=== PATIENT | female | born 1945 | race Caucasian/White ===

== ENCOUNTER 2016-09-21 05:40 | Outpatient (CLI) | payer MEDICARE, OTHER ==
[~2016-09-21] VITALS: Ht 170.2 cm; Wt 95.3 kg
[~2016-09-21 05:40] MED LIST: AMLO5TAB2 PO; ASP81TEC PO; BNZ10T PO; ERGO400C PO; OMG1KC PO
[2016-09-21] MEDS ORDERED: NAPR220T66 PO (10:34)
[2016-09-21] MEDS ORDERED: ALEN70SO3 PO (10:34)
== END 2016-09-21 10:39 ==
LOC: PREOP 05:40
PROVIDERS: ATTEND Internal Medicine
DX: Z01.818 Encounter for other preprocedural examination (principal); Z12.11 Encounter for screening for malignant neoplasm of colon; Z86.010 Personal history of colon polyps

== ENCOUNTER 2016-09-23 07:10 | Day surgery (SDC) | payer MEDICARE, OTHER ==
[~2016-09-23] VITALS: Ht 170.2 cm; Wt 95.3 kg
[~2016-09-23 07:10] MED LIST changes: +ALEN70SO3 PO; +NAPR220T66 PO
--- OUTSIDE RECORDS SUMMARY | 2016-09-23 07:13 | XMS REPORT | Continuity of Care Document ---
Author Author [facility] Organization [facility] Address Unknown Phone Unavailable Care Team Providers Care Geriatric Social Worker Name Role Phone VIRGIL LONDONO MD PCP Insurance Providers Payer Name Policy Number Subscriber Name Relationship [employer] [id number] Philip Garrett 19 Self / Same As Patient Enter Insurance Name [id number] Philip Garrett 19 Self / Same As Patient Advance Directives Directive Response Recorded Date/Time Advance Directives No 09/21/16 10:31am Health Care Power of Reaming Press Operator No 09/21/16 10:31am Organ Donor Yes 09/21/16 10:31am Resuscitation Status Full Code 09/21/16 10:31am Problems No problem information available. Medications Current Home Medications Medication Dose Units Route Directions Days/Qty Instructions Start Date Aspirin 81 Mg 81 Mg Oral Daily 11/28/11 Fish Oil 1,000 Mg 1,000 Mg Oral Twice A Day 11/28/11 Benazepril Hcl 10 Mg 1 Each Oral Daily 11/29/11 Amlodipine Besylate (Norvasc 5 Mg) 5 Mg 5 Mg Oral Daily 11/29/11 Alendronate Sodium 70 Mg/75 Ml 70 Mg Oral Weekly 09/21/16 Naproxen Sodium 220 Mg 220 Mg Oral Daily 09/21/16 Past Home Medications Medication Directions Ordered Status Cholecalciferol 400 Unit Capsule, 400 Unit Oral Daily 11/28/11 Discontinued Social History Social History Problem Response Recorded Date/Time Alcohol Use Rarely Uses 09/21/2016 10:31am Recreational Drug Use No 09/21/2016 10:31am Recent Foreign Travel No 09/21/2016 10:30am Recent Infectious Disease Exposure No 09/21/2016 10:30am Sexually Transmitted Disease No 09/21/2016 10:31am HIV/AIDS No 09/21/2016 10:31am Smoking Status Former Smoker 09/21/2016 10:31am Recent Hopitalizations No 09/21/2016 10:31am Sexually Transmitted Disease No 09/21/2016 10:31am Query Response Start Date Stop Date Smoking Status Former Smoker Hospital Discharge Instructions No hospital discharge instructions. Plan of Care Discharge Date 09/21/16 10:39am Prescriptions See Medication Section Functional Status No functional status results. Allergies, Adverse Reactions, Alerts No known allergies. Immunizations No immunization records. Vital Signs Acute Vital Signs Vital Response Date/Time Height (Feet) 5 feet 09/21/2016 10:30am Height (Inches) 7.00 inches 09/21/2016 10:30am Height (Calculated Centimeters) 170.387032 cm 09/21/2016 10:30am Weight (Pounds) 210 pounds 09/21/2016 10:30am Weight (Ounces) 0.0 oz 09/21/2016 10:30am Weight (Calculated Grams) 38307.40 gm 09/21/2016 10:30am Weight (Calculated Kilograms) 95.926438 kilograms 09/21/2016 10:30am Calculated BMI 32.9 09/21/2016 10:30am Results No known relevant diagnostic tests, laboratory data and/or discharge summary. Procedures No known history of procedures. Encounters Encounter Location Arrival/Admit Date Discharge/Depart Date Attending Provider Departed Clinic [facility] 09/21/16 5:40am 09/21/16 10: 39am VIRGIL LONDONO MD
--- OUTSIDE RECORDS SUMMARY | 2016-09-23 07:13 | XMS REPORT | Continuity of Care Document ---
Author Author [facility] Organization [facility] Address Unknown Phone Unavailable Care Team Providers Care Recycling Center Operator Name Role Phone VIRGIL LONDONO MD PCP Insurance Providers Payer Name Policy Number Subscriber Name Relationship [employer] [id number] Philip Garrett 19 Self / Same As Patient Enter Insurance Name [id number] Philip Garrett 19 Self / Same As Patient Advance Directives Directive Response Recorded Date/Time Advance Directives No 09/21/16 10:31am Health Care Power of Goal Umpire No 09/21/16 10:31am Organ Donor Yes 09/21/16 [...] 7.00 inches 09/21/2016 10:30am Height (Calculated Centimeters) 170.216848 cm 09/21/2016 10:30am Weight (Pounds) 210 pounds 09/21/2016 10:30am Weight (Ounces) 0.0 oz 09/21/2016 10:30am Weight (Calculated Grams) 99446.40 gm 09/21/2016 10:30am Weight (Calculated Kilograms) 95.814015 kilograms 09/21/2016 10:30am Calculated BMI 32.9 09/21/2016 10:30am Results No known relevant diagnostic tests, laboratory data and/or discharge summary. Procedures No known history of procedures. Encounters Encounter Location Arrival/Admit Date Discharge/Depart Date Attending Provider Departed Clinic [facility] 09/21/16 5:40am 09/21/16 10: 39am VIRGIL LONDONO MD
[2016-09-23] MEDS ORDERED: 1/2 NS IV SOLUTION 1,000 ML IV STA (07:18)
[2016-09-23] MEDS ORDERED: FLUMAZENIL (ROMAZICON) 0.1 MG/ML 5 ML VIAL INJ PRN (07:30)
[2016-09-23] MEDS ORDERED: LIDOCAINE JELLY 2% (XYLOCAINE) 5 ML TUBE MM PRN (07:30)
[2016-09-23] MEDS ORDERED: NALOXONE 0.4 MG/ML 1 ML (NARCAN) VIAL IVP PRN (07:30)
[2016-09-23 07:37] VITALS: BP 134/72
--- NOTE | 2016-09-23 07:53 | Pre-Op Note & Conscious Sedat ---
Pre-Operative Progress Note H&P Reviewed The H&P was reviewed, patient examined and no changes noted. Date H&P Reviewed: Sep 23, 2016 Time H&P Reviewed: 07:53 Conscious Sedation Pre-Proced ASA Class: 2 Airway Mallampati Classification: ([place] appropriate class) I. II. III, IV Lungs Heart ASA score ASA 1: a normal healthy patient ASA 2: a patient with a mild systemic disease (mid diabetes, controlled hypertension, obesity ASA 3: a patient with a severe systemic disease that limits activity (angina , COPD, prior Myocardial infarction) ASA 4: a patient with an incapacitating disease that is a constant threat to life (CHF, renal failure) ASA 5: a moribund patient not expected to survive 24 hrs. (ruptured aneurysm) ASA 6: a declared brain patient whose organs are being harvested. For emergent operations, add the letter E after the classification Grade 2 Sedation Plan: Analgesia, Amnesia, Plan communicated to team members, Discussed options with patient/fam, Discussed risks with patient/fam Note The patient is an appropriate candidate to undergo the planned procedure, sedation, and anesthesia. The patient immediately re-assessed prior to indication. VIRGIL LONDONO MD Sep 23, 2016 07:53
--- NOTE | 2016-09-23 07:56 | History & Physical-Hospitalist ---
HPI History of Present Illness: HPI/Chief Complaint 8-year-old white female presenting for surveillance colonoscopy due to past history of adenomatous colonic polyps. Her last colonoscopy was 5 years ago. Past medical history is significant for CLL and hypertension she is on surveillance for CLL and is under good control for her hypertension. Family history for colon cancer she feels well and has no history of coronary artery disease. Date Seen 09/23/16 Attending Physician Virgil Londono MD PCP Virgil Londono MD Referring Physician Date of Admission Home Medications & Allergies Home Medications Reviewed patient Home Medication Reconciliation Form Allergies Coded Allergies: No Known Drug Allergies (Unverified , 09/21/16) Past Etyftzx-Nmxrni-Cqqxsc Hx Patient Social History Alcohol Use: Denies Use Recreational Drug Use: No Smoking Status: Former Smoker Type Used: Cigarettes Physical Abuse Screen: No Sexual Abuse: No Recent Foreign Travel: No Contact w/other who traveled: No Recent Hopitalizations: No Recent Infectious Disease Expo: No Immunizations Up To Date Tetanus Booster (TDap): Unknown Date of Pneumonia Vaccine: Sep 21, 2014 Date of Influenza Vaccine: May 16, 2016 Seasonal Allergies Seasonal Allergies: No Surgeries HX Surgeries: Yes Surgeries: Tubal Ligation Respiratory Hx Respiratory Disorders: No Cardiovascular Hx Cardiovascular Disorders: Yes Cardiac Disorders: Hypertension Neurological Hx Neurological Disorders: No Reproductive System Hx Reproductive Disorders: No Sexually Transmitted Disease: No HIV/AIDS: No Female Reproductive Disorders: Denies Genitourinary Hx Genitourinary Disorders: No Gastrointestinal Hx Gastrointestinal Disorders: No (OCCASSIONAL HEARTBURN) Gastrointestinal Disorders: Gastroesophageal Reflux, Polyps Musculoskeletal Hx Musculoskeletal Disorders: No Endocrine Hx Endocrine Disorders: No HEENT HX ENT Disorders: Yes (GLASSES, PARTIAL-UPPER AND LOWER) Loss of Vision: Denies Hearing Impairment: Denies Cancer Hx Cancer: No Psychosocial Hx Psychiatric Problems: No Integumentary HX Skin/Integumentary Disorder: No Blood Transfusions Hx Blood Disorders: No Review of Systems Constitutional: no symptoms reported Physical Exam Physical Exam Vital Signs Vital Sign - Last 12Hours 09/23/16 07:37 Temp 97.9 Pulse 81 Resp 18 B/P 134/72 Pulse Ox 97 O2 Delivery Room Air Capillary Refill : General Appearance: No Apparent Distress Respiratory: Chest Non Tender Lungs Clear Normal Breath Sounds No Accessory Muscle Use No Respiratory Distress Cardiovascular: Regular Rate, Rhythm No Edema No Gallop No JVD No Murmur Normal Peripheral Pulses Gastrointestinal: Normal Bowel Sounds No Organomegaly No Pulsatile Mass Non Tender Soft Assessment/Plan Admission Diagnosis 1. Stable CLL without evidence for anemia and thrombocytopenia and stable mild lymphocytosis continue to monitor. 2. Patient was set up for surveillance colonoscopy due to past history of adenomatous colonic polyps prep instructions with split dose Colyte were given and questions were answered. 3. Stable hypertension VIRGIL LONDONO MD Sep 23, 2016 07:56
[2016-09-23] MEDS ORDERED: fentaNYL INJECTION 100 MCG/2 ML AMP ONE ×2 (08:02→08:25)
[2016-09-23] MEDS ORDERED: MIDAZOLAM 2 MG/2 ML (VERSED) VIAL ONE ×2 (08:02→08:03)
[2016-09-23] MEDS ORDERED: LIDOCAINE JELLY 2% (XYLOCAINE) 5 ML TUBE ONE (08:02)
[2016-09-23] MEDS: fentaNYL INJECTION 100 MCG/2 ML AMP IVP PRN ×3 (08:05→08:25)
[2016-09-23] MEDS: MIDAZOLAM 2 MG/2 ML (VERSED) VIAL IVP PRN ×2 (08:08→08:26)
[2016-09-23 08:55] VITALS: BP 109/62
[2016-09-23 09:35] VITALS: BP 116/63
[2016-09-23 09:55] VITALS: BP 116/63
--- NOTE | 2016-09-25 08:55 | PROCEDURE REPORT ---
PROCEDURE PHYSICIAN: VIRGIL LONDONO DATE OF PROCEDURE: 09/23/2016 SURVEILLANCE COLONOSCOPY: Ms. Ball underwent colonoscopy due to a past history of adenomatous colon polyps. Last colonoscopy was 5 years ago. PROCEDURE: The patient was placed in the left lateral decubitus position. Prior to going colonoscopy, digital rectal evaluation was performed. Anal sphincter tone was normal and the perianal reflex was intact. No abnormalities were noted to digital inspection of the anal canal or distal rectal vault. The colonoscope was then inserted into the rectum and under direct visualization, advanced to cecum. The cecum was identified by identification of the ileocecal valve and cecal strap. Photographic documentation was obtained. Careful inspection was made as the colonoscope was withdrawn. FINDINGS: There was no evidence for internal or external hemorrhoids. There were a moderate number of small to medium size sigmoid and descending colonic diverticulum, several ascending colonic diverticulum were noted as well. Haustral hypertrophy was present with some patchy areas of erythema. No evidence for purulence was noted and the patient denied abdominal pain, diarrhea, constipation or bowel habit change. No evidence for neoplasia was noted on today's evaluation and no evidence for vascular malformation was noted. ASSESSMENT: Moderate diverticular disease predominantly noted in the sigmoid colon and to a lesser extent the descending colon as well as ascending colon was appreciated without evidence for acute diverticulitis. No evidence for neoplasia was identified. It is debatable as to whether or not future surveillance colonoscopy will be recommended considering moderate diverticular disease. We discussed signs and symptoms of diverticulitis with the patient should she develop significant abdominal pain with or without chills or fever and she should seek medical attention. Sincerely, Job ID: [id number] Dictated Date: 09/23/2016 13:26:26 Procedure Tech Date: 09/25/2016 08:50:51 / jane
== END 2016-09-23 09:55 | disposition home or self-care (01) ==
LOC: ENDO 07:10
PROVIDERS: ATTEND Internal Medicine
DX: Z12.11 Encounter for screening for malignant neoplasm of colon (principal); K57.30 Diverticulosis of large intestine without perforation or abscess without bleeding; Z86.010 Personal history of colon polyps; Z09 Encounter for follow-up examination after completed treatment for conditions other than malignant neoplasm

== ENCOUNTER → 2018-03-20 | Outpatient (CLI) | payer MEDICARE, OTHER | LOC: LAB 08:53 | PROVIDERS: ATTEND Internal Medicine | DX: D75.1 Secondary polycythemia (principal) | CPT/HCPCS: 36415; 81270 ==

== ENCOUNTER → 2018-08-15 | Outpatient (CLI) | payer MEDICARE, OTHER ==
--- NOTE | 2018-08-15 12:43 | Diagnostic Imaging Report ---
INDICATION: Routine screening. COMPARISON is made with prior mammogram from 03/28/2016 and 03/11/2015. EXAM: 2-D and 3-D bilateral screening mammography was performed with CAD. FINDINGS: Scattered fibroglandular densities are identified bilaterally. The parenchymal pattern is stable. Scattered nodular densities in both breasts appear stable. No new mass or malignant-appearing microcalcifications are seen. The axillae are unremarkable. IMPRESSION: BI-RADS category 2. No mammographic features suspicious for malignancy are identified. ACR BI-RADS Category 2: Benign findings. Result letter will be mailed to the patient. Note: At least 10% of breast cancer is not imaged by mammography. Dictated by: Dictated on workstation # [id number]
== END ==
LOC: RAD 10:25
PROVIDERS: ATTEND Internal Medicine
DX: Z12.31 Encounter for screening mammogram for malignant neoplasm of breast (principal)
CPT/HCPCS: 77067

== ENCOUNTER 2020-07-23 10:07 | Inpatient (IN) | payer MEDICARE, OTHER ==
[2020-07-23] VITALS (7 sets, daily range): BP systolic 126–152; BP diastolic 65–92
[~2020-07-23] VITALS: Ht 170.2 cm; Wt 79.4 kg
[2020-07-23] MEDS ORDERED: LACTATED RINGERS 1,000 ML IV ONE (10:30)
--- NOTE | 2020-07-23 10:33 | ED Respiratory ---
General Chief Complaint: Respiratory Problems Stated Complaint: SOB,CP Source: patient Exam Limitations: no limitations History of Present Illness Date Seen by Provider: Jul 23, 2020 Time Seen by Provider: 10:13 Initial Comments Patient presents ER by private conveyance from home with chief complaint of shortness of air that she woke up with this morning. She says that she did any minor exertion even trying to get a shower when caused tightness across her [address] She does not have a history of coronary disease. She does smoke and quit smoking about 2 weeks ago. She has hypertension hyperlipidemia but no diabetes. She takes her medications routinely but did not take her aspirin yet this morning. She denies a known history of lung disease. She says for the past couple weeks has been dealing with gallbladder disease but has been able to manage it by just changing her diet. Historically she only has tubal ligation. She is not having any nausea or abdominal pain, bloating diarrhea or constipation. No fevers or chills. Everybody in the household has had runny nose, cold-like symptoms but they have all tested negative for COVID-19. She has not been tested for Covid or influenza. Allergies and Home Medications Allergies Coded Allergies: No Known Drug Allergies (Unverified , 09/21/16) Home Medications Alendronate Sodium 70 Mg/75 Ml Solution, 70 MG PO WEEKLY, (Reported) Amlodipine Besylate 5 Mg Tablet, 5 MG PO DAILY, (Reported) Aspirin 81 Mg Tabec, 81 MG PO DAILY, (Reported) Benazepril Hcl 10 Mg Tablet, 1 EACH PO DAILY, (Reported) Naproxen Sodium 220 Mg Tablet, 220 MG PO DAILY, (Reported) [place] 3 Polyunsat Fatty Acids 1,000 Mg Cap, 1,000 MG PO BID, (Reported) Patient Home Medication List Home Medication List Reviewed: Yes Review of Systems Review of Systems Constitutional: No chills, No fever EENTM: No ear discharge, No ear pain Respiratory: cough, short of breath Cardiovascular: chest pain; No Hx of Intervention, No palpitations Gastrointestinal: No abdominal pain, No constipation, No diarrhea, No nausea, No vomiting Genitourinary: No discharge, No dysuria Musculoskeletal: No back pain, No joint pain All Other Systems Reviewed Negative Unless Noted: Yes Past Gcykini-Ifkszf-Tbpnne Hx Patient Social History Alcohol Use: Denies Use Recreational Drug Use: No Smoking Status: Current Everyday Smoker Type Used: Cigarettes Recent Hopitalizations: No Immunizations Up To Date Tetanus Booster (TDap): Unknown Date of Pneumonia Vaccine: Sep 21, 2014 Date of Influenza Vaccine: May 16, 2016 Seasonal Allergies Seasonal Allergies: No Past Medical History Tubal Ligation Currently Using CPAP: No Currently Using BIPAP: No Hypertension Reproductive Disorders: No Female Reproductive Disorders: Denies Sexually Transmitted Disease: No HIV/AIDS: No Gastroesophageal Reflux, Polyps Loss of Vision: Denies Hearing Impairment: Denies Physical Exam Vital Signs - First Documented 07/23/20 10:07 Temp 35.9 Pulse 134 Resp 20 B/P (MAP) 173/90 (117) Pulse Ox 97 O2 Delivery Room Air Capillary Refill : Height: 5'7.00" Weight: 210lbs. 0.0oz. [id number]; 32.9 BMI Method: General Appearance: WD/WN, moderate distress Eyes: Bilateral Eye Normal Inspection, Bilateral Eye PERRL, Bilateral Eye EOMI HEENT: PERRL/EOMI, normal ENT inspection, TMs normal, pharynx normal Neck: full range of motion, normal inspection Respiratory: lungs clear, normal breath sounds, no respiratory distress, no accessory muscle use Cardiovascular: normal peripheral pulses, regular rate, rhythm Gastrointestinal: normal bowel sounds, non tender, soft Extremities: normal range of motion, normal inspection Neurologic/Psychiatric: no motor/sensory deficits, alert, normal mood/affect, oriented x 3 Skin: normal color, warm/dry Focused Exam Sepsis Stage: Sepsis Possible Source: Pulmonary Lactate Level 07/23/20 12:55: Time of Focused Exam: 13:02 Respiratory: Lungs Clear, Normal Breath Sounds, No Accessory Muscle Use, Respiratory Distress (Mild to moderate with exertional hypoxia) Cardiovascular: No Edema, Normal Peripheral Pulses, Tachycardia Capillary Refill: Less Than 3 Seconds Peripheral Pulses: 2+ Radial Pulses (R), 2+ Radial Pulses (L) Skin: normal color, warm/dry Lactic Acid Level Laboratory Tests Test 07/23/20 12:55 Within 3hrs of presentation: Admin fluids (Fluids were titrated at first due to suspicion for viral pneumonia.), Admin ABX (Antibiotics were initially held because of suspicion for viral pneumonia.), Blood cultures prior to ABX's, Focus exam, Lactate level Progress/Results/Core Measures Suspected Sepsis SIRS Temperature: Pulse: Respiratory Rate: Laboratory Tests 07/23/20 10:15: White Blood Count 9.6 Blood Pressure / Mean: 07/23/20 12:55: Laboratory Tests 07/23/20 10:15: Creatinine 1.22, INR Comment 1.1, Platelet Count 99L, Total Bilirubin 2.1H Results/Orders Lab Results Laboratory Tests Test 07/23/20 10:15 07/23/20 10:22 07/23/20 11:12 07/23/20 11:55 Range/Units White Blood Count 9.6 4.3-11.0 10^3/uL Red Blood Count 4.49 3.80-5.11 10^6/uL Hemoglobin 14.4 11.5-16.0 g/dL Hematocrit 42 35-52 % Mean Corpuscular Volume 93 80-99 fL Mean Corpuscular Hemoglobin 32 25-34 pg Mean Corpuscular Hemoglobin Concent 34 32-36 g/dL Red Cell Distribution Width 12.7 10.0-14.5 % Platelet Count 99 L 130-400 10^3/uL Mean Platelet Volume 9.0-12.2 fL Immature Granulocyte % (Auto) 2 % Neutrophils (%) (Auto) 61 42-75 % Lymphocytes (%) (Auto) 31 12-44 % Monocytes (%) (Auto) 5 0-12 % Eosinophils (%) (Auto) 1 0-10 % Basophils (%) (Auto) 1 0-10 % Neutrophils # (Auto) 5.9 1.8-7.8 10^3/uL Lymphocytes # (Auto) 2.9 1.0-4.0 10^3/uL Monocytes # (Auto) 0.5 0.0-1.0 10^3/uL Eosinophils # (Auto) 0.1 0.0-0.3 10^3/uL Basophils # (Auto) 0.1 0.0-0.1 10^3/uL Immature Granulocyte # (Auto) 0.2 H 0.0-0.1 10^3/uL Prothrombin Time 14.4 12.2-14.7 SEC INR Comment 1.1 0.8-1.4 Activated Partial Thromboplast Time 30 24-35 SEC D-Dimer 7.32 H 0.00-0.49 UG/ML Sodium Level 133 L 135-145 MMOL/L Potassium Level 4.4 3.6-5.0 MMOL/L Chloride Level 100 98-107 MMOL/L Carbon Dioxide Level 14 L 21-32 MMOL/L Anion Gap 19 H 5-14 MMOL/L Blood Urea Nitrogen 31 H 7-18 MG/DL Creatinine 1.22 0.60-1.30 MG/DL Estimat Glomerular Filtration Rate 43 BUN/Creatinine Ratio 25 Glucose Level 129 H 70-105 MG/DL Calcium Level 10.3 H 8.5-10.1 MG/DL Corrected Calcium 8.5-10.1 MG/DL Total Bilirubin 2.1 H 0.1-1.0 MG/DL Aspartate Amino Transf (AST/SGOT) 37 H 5-34 U/L Alanine Aminotransferase (ALT/SGPT) 19 0-55 U/L Alkaline Phosphatase 66 40-136 U/L Troponin I < 0.028 <0.028 NG/ML C-Reactive Protein High Sensitivity 1.81 H 0.00-0.50 MG/DL B-Type Natriuretic Peptide 130.2 H <100.0 PG/ML Total Protein 8.1 6.4-8.2 GM/DL Albumin 4.6 H 3.2-4.5 GM/DL Lipase 34 8-78 U/L Procalcitonin 0.09 <0.10 NG/ML Coronavirus 2019 ([place]) Negative Negative Blood Gas Puncture Site RIGHT RADIAL Blood Gas Patient Temperature 96.6 Arterial Blood pH 7.34 *L 7.37-7.43 Arterial Blood Partial Pressure CO2 30 L 35-45 MMHG Arterial Blood Partial Pressure O2 71 L 79-93 MMHG Arterial Blood HCO3 16 *L 23-27 MMOL/L Arterial Blood Total CO2 16.8 L 21.0-31.0 MMOL/L Arterial Blood Oxygen Saturation 94 94-100 % Arterial Blood Base Excess -9.0 L -2.5-2.5 MMOL/L Jose Test POSITIVE Blood Gas Ventilator Setting NO Blood Gas Inspired Oxygen N/A Urine Color YELLOW Urine Clarity SL CLOUDY Urine pH 5.5 5-9 Urine Specific Bennet 1.020 1.016-1.022 Urine Protein NEGATIVE NEGATIVE Urine Glucose (UA) NEGATIVE NEGATIVE Urine Ketones NEGATIVE NEGATIVE Urine Nitrite NEGATIVE NEGATIVE Urine Bilirubin NEGATIVE NEGATIVE Urine Urobilinogen 0.2 < = 1.0 MG/DL Urine Leukocyte Esterase TRACE H NEGATIVE Urine RBC (Auto) NEGATIVE NEGATIVE Urine RBC NONE /HPF Urine WBC 10-25 H /HPF Urine Squamous Epithelial Cells 10-25 H /HPF Urine Crystals NONE /LPF Urine Bacteria MODERATE H /HPF Urine Casts PRESENT /LPF Urine Hyaline Casts 5-10 H /LPF Urine Mucus NEGATIVE /LPF Urine Culture Indicated YES Test 07/23/20 12:55 Range/Units Micro Results Microbiology 07/23/20 Influenza Types A,B Antigen ([facility]) - Final, Complete My Orders Orders - FIDEL MORALES Cbc With Automated Diff (07/23/20 10:28) Comprehensive Metabolic Panel (07/23/20 10:28) Sputum Culture (07/23/20 10:28) Urinalysis (07/23/20 10:28) Urine Culture (07/23/20 10:28) Protime With Inr (07/23/20 10:28) Partial Thromboplastin Time (07/23/20 10:28) Chest 1 View, Ap/Pa Only (07/23/20 10:28) Ed Iv/Invasive Line Start (07/23/20 10:28) Ed Iv/Invasive Line Start (07/23/20 10:28) Ekg Tracing (07/23/20 10:28) Troponin I (07/23/20 10:28) Vital Signs Adult Sepsis Patie Q15M (07/23/20 10:28) O2 (07/23/20 10:28) Remove Rings In Anticipation O (07/23/20 10:28) Influenza A And B Antigens (07/23/20 10:28) Lactated Ringers (Lr 1000 Ml Iv Solution (07/23/20 10:30) Covid 19 Inhouse Test (07/23/20 10:28) Lipase (07/23/20 10:28) Fibrin Degradation Products (07/23/20 10:28) Procalcitonin (Pct) (07/23/20 10:28) Hs C Reactive Protein (07/23/20 10:28) Aspirin Chewable Tablet (Baby Aspirin Ch (07/23/20 10:45) Arterial Blood Gas (07/23/20 10:34) Coronavirus Sars-Cov-2 So 2019 (07/23/20 11:01) Ct Angio Chest W (07/23/20 11:12) Ed Iv/Invasive Line Start (07/23/20 11:15) Ns Iv 500 Ml (Sodium Chloride 0.9%) (07/23/20 11:15) BNP (07/23/20 11:15) Iohexol Injection (Omnipaque 350 Mg/Ml 1 (07/23/20 11:15) Received Contrast (Hold Metformin- Contr (07/23/20 11:15) Sodium Chloride Flush (Catheter Flush Sy (07/23/20 11:15) Ns (Ivpb) (Sodium Chloride 0.9% Ivpb Bag (07/23/20 11:15) Blood Culture (07/23/20 12:50) Lactic Acid Analyzer (07/23/20 12:50) Ceftriaxone For Iv Use (Rocephin For I (07/23/20 13:00) Azithromycin Injection (Zithromax Inject (07/23/20 13:00) Legionella Pneum Antigen Urine (07/23/20 12:54) Mycoplasma Antibodies (07/23/20 12:54) Medications Given in ED Current Medications Medications Dose Ordered Sig/Alfred Route Start Time Stop Time Status Last Admin Dose Admin Aspirin 324 mg ONCE ONCE PO 07/23/20 10:45 07/23/20 10:46 DC 07/23/20 10:44 324 MG Azithromycin 500 mg/Sodium Chloride 250 ml @ 250 mls/hr ONCE ONCE IV 07/23/20 13:00 07/23/20 13:59 07/23/20 13:10 250 MLS/HR Ceftriaxone Sodium 1000 mg/ Sterile Water 10 ml @ 200 mls/hr ONCE ONCE IV 07/23/20 13:00 07/23/20 13:02 DC 07/23/20 13:08 200 MLS/HR Iohexol 100 ml ONCE ONCE IV 07/23/20 11:15 07/23/20 11:16 DC 07/23/20 11:56 72 ML Lactated Ringer's 1,000 ml @ 0 mls/hr Q0M ONCE IV 07/23/20 10:30 07/23/20 10:32 DC 07/23/20 10:44 1,000 MLS/HR Sodium Chloride 10 ml NEEDED PRN IV 07/23/20 11:15 07/23/20 11:57 10 ML Sodium Chloride 100 ml ONCE ONCE IV 07/23/20 11:15 07/23/20 11:16 DC 07/23/20 11:57 80 ML Sodium Chloride 500 ml @ 0 mls/hr Q0M ONCE IV 07/23/20 11:15 07/23/20 11:16 DC 07/23/20 13:07 500 MLS/HR Vital Signs/I&O 07/23/20 10:07 Temp 35.9 Pulse 134 Resp 20 B/P (MAP) 173/90 (117) Pulse Ox 97 O2 Delivery Room Air Capillary Refill : Progress Note #1: Time: 11:53 Progress Note Suspected viral pneumonias at first so 1500 cc of fluids and holding off on antibiotics. D-dimer significantly elevated so we get a CT angiogram. Chest x- ray is unrevealing of any pneumonia. White count is normal. CRP and procalcitonin are unremarkable. Progress Note #2: Time: 12:[address] angio was still unrevealing. Were going to cover her with Rocephin and azithromycin for atypicals. Going to send out for Legionella and mycoplasma. ABG reveals mild hypoxia so will put her on oxygen and jose martin for a floor bed. Communicated with family. ECG Initial ECG Impression Date: Jul 23, 2020 Initial ECG Impression Time: 10:11 Initial ECG Rate: 111 Initial ECG Rhythm: S.Tach Initial ECG Intervals: Normal Initial ECG Impression: Normal Initial ECG Comparisson: No Previous ECG Available Comment Sinus tach without st elevation Diagnostic Imaging Diagonstic Imaging: Xray Plain Films/CT/US/NM/MRI: chest Comments NAME: PHILIP GARRETT [facility] REC#: [id number] PT STATUS: REG ER : 1945 PHYSICIAN: FIDEL MORALES MD ADMIT DATE: 07/23/20/ER Signed Date of Exam:07/23/20 CHEST 1 VIEW, AP/PA ONLY INDICATION: Shortness of breath and chest tightness. TECHNIQUE: Frontal chest obtained at 11:01 a.m. and compared to 03/28/2016. FINDINGS: Heart is borderline in size. There is mild central vascular prominence. There are chronic-appearing increased interstitial markings. There is no overt consolidation or pneumothorax or pleural fluid. IMPRESSION: Borderline heart size with central vascular prominence and chronic increased interstitial markings. No overt consolidation or pleural fluid. Dictated by: Dictated on workstation # [id number] Dict: 07/23/20 1102 Trans: 07/23/20 1131 [id number] Interpreted by: WANDA CLAUDIO MD Electronically signed by: WANDA CLAUDIO MD 07/23/20 1131 Reviewed: Reviewed by Me Diagonstic Imaging: CT Plain Films/CT/US/NM/MRI: chest Comments NAME: PHILIP GARRETT [facility] REC#: [id number] PT STATUS: REG ER : 1945 PHYSICIAN: FIDEL MORALES MD ADMIT DATE: 07/23/20/ER Draft Date of Exam:07/23/20 CT ANGIO CHEST W PROCEDURE: CT angiography of the chest with contrast. TECHNIQUE: Multiple contiguous axial images were obtained through the chest after uneventful bolus administration of intravenous contrast. 3D reconstructed CTA MIP acquisitions were also performed. Auto Exposure Controls were utilized during the CT exam to meet ALARA standards for radiation dose reduction. INDICATION: Fall, syncope FINDINGS: No identifiable intraluminal arterial filling defect is seen. We note limited sensitivity on the basis of motion artifact particular challenging the distal basilar pulmonary arterial branches. There is some prominence of the pulmonary venous structures as well as some mild smooth septal thickening and element of hypervolemia or mild failure is suspected. No focal consolidation or pneumonia. No pneumothorax. No adenopathy. No soft tissue density lung mass. No effusion. The aorta is patent and nonaneurysmal. There is no pericardial collection. IMPRESSION: No demonstrated PE or acute aortic disease. Prominence of the venous structures as well as likely mild interstitial edema without pleural fluid. Dictated on workstation # [id number] Dict: 07/23/20 1212 Trans: 07/23/20 1238 [id number] Interpreted by: THUY NUÑEZ Electronically signed by: Reviewed: Reviewed by Me Departure Communication (Admissions) Time/Spoke to Admitting Phy: 13:00 Discussed the case with Dr. Nicole and she agrees take the patient to the floor on telemetry. Time/Spoke to Consulting Phy: 13:00 Discussed the case with Dr. Gaspar and he agrees to consult on the case. Impression Primary Impression: Pneumonia Qualified Codes: J18.9 - Pneumonia, unspecified organism Additional Impressions: Chest pain Qualified Codes: R07.1 - Chest pain on breathing Acute respiratory failure with hypoxia Sepsis Qualified Codes: A41.9 - Sepsis, unspecified organism Person under investigation for severe acute respiratory syndrome coronavirus 2 (SARS-CoV-2) infection Disposition: ADMITTED INPATIENT Condition: Stable Admissions Decision to Admit Reason: Admit from ER (General) Decision to Admit/Date: Jul 23, 2020 Time/Decision to Admit Time: 12:00 Departure-Patient Inst. Referrals: VIRGIL LONDONO MD (PCP/Family) Primary Care Physician FIDEL MORALES Jul 23, 2020 10:33
[2020-07-23 10:37] LABS: MEAN CORPUSCULAR HEMOGLOBIN 32 pg (25-34)
[2020-07-23 10:39] LABS: BASOPHILS # (AUTO) 0.1 10^3/uL (0.0-0.1); BASOPHILS % (AUTO) 1 % (0-10); EOSINOPHILS # (AUTO) 0.1 10^3/uL (0.0-0.3); EOSINOPHILS % (AUTO) 1 % (0-10); HEMATOCRIT 42 % (35-52); HEMOGLOBIN 14.4 g/dL (11.5-16.0); LYMPHOCYTES # (AUTO) 2.9 10^3/uL (1.0-4.0); LYMPHOCYTES % (AUTO) 31 % (12-44); MEAN CORPUSCULAR HGB CONC 34 g/dL (32-36); MEAN CORPUSCULAR VOLUME 93 fL (80-99); MONOCYTES # (AUTO) 0.5 10^3/uL (0.0-1.0); MONOCYTES % (AUTO) 5 % (0-12); NEUTROPHILS # (AUTO) 5.9 10^3/uL (1.8-7.8); NEUTROPHILS % (AUTO) 61 % (42-75); PLATELET COUNT 99 10^3/uL (130-400); WHITE BLOOD COUNT 9.6 10^3/uL (4.3-11.0)
[2020-07-23 10:41] LABS: ABG OXYGEN SATURATION 94 % (94-100); ABG PCO2 30 MMHG (35-45); ABG PO2 71 MMHG (79-93); ABG TCO2 16.8 MMOL/L (21.0-31.0)
[2020-07-23 10:42] LABS: ABG PH 7.34 (7.37-7.43)
[2020-07-23 10:43] LABS: ALLENS TEST POSITIVE; PATIENT TEMP 96.6; VENTILATOR NO
[2020-07-23] MEDS ORDERED: ASPIRIN 81 MG CHEW (CHILDREN'S ASA) PO ONE (10:45)
[2020-07-23 10:46] LABS: ALBUMIN 4.6 GM/DL (3.2-4.5); CHLORIDE 100 MMOL/L (98-107); POTASSIUM 4.4 MMOL/L (3.6-5.0); SODIUM 133 MMOL/L (135-145)
[2020-07-23 10:47] LABS: CALCIUM 10.3 MG/DL (8.5-10.1)
[2020-07-23 10:48] LABS: GLUCOSE 129 MG/DL (70-105); TOTAL PROTEIN 8.1 GM/DL (6.4-8.2)
[2020-07-23 10:49] LABS: CARBON DIOXIDE 14 MMOL/L (21-32)
[2020-07-23 10:50] LABS: BILIRUBIN,TOTAL 2.1 MG/DL (0.1-1.0)
[2020-07-23 10:52] LABS: ALKALINE PHOSPHATASE 66 U/L (40-136); CREATININE SERUM 1.22 MG/DL (0.60-1.30); GFR ESTIMATED 43
[2020-07-23 10:53] LABS: BUN/CREATININE RATIO 25
[2020-07-23 10:55] LABS: ALANINE AMINOTRANSFERASE 19 U/L (0-55); FIBRIN DEGRADATION PRODUCTS 7.32 UG/ML (0.00-0.49); INR 1.1 (0.8-1.4); LIPASE 34 U/L (8-78); PROTHROMBIN TIME PATIENT 14.4 SEC (12.2-14.7)
--- NOTE | 2020-07-23 11:08 | Diagnostic Imaging Report ---
INDICATION: Shortness of breath and chest tightness. TECHNIQUE: Frontal chest obtained at 11:01 a.m. and compared to 03/28/2016. FINDINGS: Heart is borderline in size. There is mild central vascular prominence. There are chronic-appearing increased interstitial markings. There is no overt consolidation or pneumothorax or pleural fluid. IMPRESSION: Borderline heart size with central vascular prominence and chronic increased interstitial markings. No overt consolidation or pleural fluid. Dictated by: Dictated on workstation # [id number]
[2020-07-23] MEDS ORDERED: NS IV 500 ML 500 ML IV ONE (11:15)
[2020-07-23] MEDS ORDERED: HOLD METFORMIN - RECEIVED CONTRAST 20 ML VIAL IV SCH (11:15)
[2020-07-23] MEDS ORDERED: IOHEXOL 350 MG/ML 100 ML (OMNIPAQUE 350) VIAL IV ONE (11:15)
[2020-07-23] MEDS ORDERED: CATHETER FLUSH 10 ML SYR IV PRN ×2 (11:15→14:45)
[2020-07-23] MEDS ORDERED: NS 100 ML (IVPB) BAG IV ONE (11:15)
[2020-07-23 12:04] LABS: BILIRUBIN,URINE NEGATIVE (NEGATIVE); CLARITY,URINE SL CLOUDY; COLOR,URINE YELLOW; GLUCOSE, URINE (UA) NEGATIVE (NEGATIVE); KETONES,URINE NEGATIVE (NEGATIVE); LEUKOCYTE ESTERASE ,URINE TRACE (NEGATIVE); NITRITE,URINE NEGATIVE (NEGATIVE); PH,URINE 5.5 (5-9); PROTEIN,URINE NEGATIVE (NEGATIVE)
[2020-07-23 12:17] LABS: BACTERIA,URINE MODERATE /HPF
--- NOTE | 2020-07-23 12:39 | Diagnostic Imaging Report ---
PROCEDURE: CT angiography of the chest with contrast. TECHNIQUE: Multiple contiguous axial images were obtained through the chest after uneventful bolus administration of intravenous contrast. 3D reconstructed CTA MIP acquisitions were also performed. Auto Exposure Controls were utilized during the CT exam to meet ALARA standards for radiation dose reduction. INDICATION: Fall, syncope FINDINGS: No identifiable intraluminal arterial filling defect is seen. We note limited sensitivity on the basis of motion artifact particular challenging the distal basilar pulmonary arterial branches. There is some prominence of the pulmonary venous structures as well as some mild smooth septal thickening and element of hypervolemia or mild failure is suspected. No focal consolidation or pneumonia. No pneumothorax. No adenopathy. No soft tissue density lung mass. No effusion. The aorta is patent and nonaneurysmal. There is no pericardial collection. IMPRESSION: No demonstrated PE or acute aortic disease. Prominence of the venous structures as well as likely mild interstitial edema without pleural fluid. Dictated by: Dictated on workstation # [id number]
[2020-07-23] MEDS ORDERED: cefTRIAXone FOR IV USE 1,000 MG in WATER (STERILE) FOR INJECTION 10 ML IV ONE (13:00)
[2020-07-23] MEDS ORDERED: AZITHROMYCIN INJECTION 500 MG in NS (IVPB) 250 ML IV ONE (13:00)
[2020-07-23] MEDS ORDERED: NITROGLYCERIN 0.4 MG SL TABS BTL 25'S SL PRN (14:45)
[2020-07-23] MEDS ORDERED: morphine INJ 4 MG/ML 1 ML (VIAL/SYRINGE) IV PRN (14:45)
[2020-07-23] MEDS ORDERED: ONDANSETRON 4 MG/2 ML (SDV) Z0FRAN IV PRN (14:45)
--- NOTE | 2020-07-23 15:20 | History & Physical-Hospitalist ---
History of Present Illness HPI/Chief Complaint Pt is a 75yoCF with a PMH of HTN and tobacco use who presented to the ER due to chest tightness and SOB. She states she awoke this morning with these symptoms and went to do her normal daily activities (let the dogs out, take a shower) but was unable to due them without getting very short of breath and had to do it in stages. She does not have a known COVID contact but her son (Dr Garrett) is the health care / medical job titles of the ER here and has return exposure. He and the entire family who live with her have been tested for COVID this week and have been negative. She denies any fevers. She has been having some left flank pain though and has less oral intake over the past few days with this. She denies any nausea or vomiting, diarrhea or constipation, or dysuria. Troponin was negative on arrival as was EKG. Source: patient Date Seen 07/23/20 Time Seen by a Provider: 15:00 Attending Physician Chantelle Nicole MD PCP Skinny Jay MD Referring Physician Date of Admission Jul 23, 2020 at 13:10 Home Medications & Allergies Home Medications Reviewed patient Home Medication Reconciliation performed by pharmacy medication reconciliations wafer fab technician and/or nursing. Patients Allergies have been reviewed. Allergies Allergies Coded Allergies No Known Drug Allergies (Unverified09/21/16) Past Bxtdqjy-Jugexu-Jrkaho Hx Past Med/Social Hx: Reviewed Nursing Past Med/Soc Hx Patient Social History Marrital Status: Employed/Student: retired Alcohol Use: Regular Use Recreational Drug Use: No Smoking Status: Current Everyday Smoker Type Used: Cigarettes Physical Abuse Screen: No Sexual Abuse: No Recent Foreign Travel: No Contact w/other who traveled: No Recent Hopitalizations: No Recent Infectious Disease Expo: No Immunizations Up To Date Tetanus Booster (TDap): Unknown Date of Pneumonia Vaccine: Aug 07, 2017 Date of Influenza Vaccine: May 07, 2020 Seasonal Allergies Seasonal Allergies: No Past Medical History Surgeries: Tubal Ligation Currently Using CPAP: No Currently Using BIPAP: No Cardiac: Hypertension Reproductive: No Sexually Transmitted Disease: No HIV/AIDS: No Female Reproductive Disorders: Denies Gastrointestinal: Gastroesophageal Reflux, Polyps Loss of Vision: Denies Hearing Impairment: Denies History of Blood Disorders: No Family History Reviewed Nursing Family Hx Review of Systems Constitutional: No chills, No fever, No weakness EENTM: no symptoms reported Respiratory: dyspnea on exertion, short of breath Cardiovascular: see HPI, chest pain; No edema, No Hx of Intervention, No palpitations Gastrointestinal: No abdominal pain, No constipation, No diarrhea, No nausea, No vomiting Genitourinary: No dysuria, No frequency Musculoskeletal: no symptoms reported Skin: no symptoms reported Psychiatric/Neurological: No Symptoms Reported Physical Exam Physical Exam Vital Signs Vital Signs - First Documented 07/23/20 07/23/20 10:07 14:36 Temp 35.9 Pulse 134 Resp 20 B/P (MAP) 173/90 (117) Pulse Ox 97 O2 Delivery Room Air O2 Flow Rate 1.00 Capillary Refill : Less Than 3 Seconds Height, Weight, BMI Height: 5'7.00" Weight: 210lbs. 0.0oz. 95.089553an; 27.40 BMI Method: General Appearance: No Apparent Distress, WD/WN HEENT: PERRL/EOMI, Moist Mucous Membranes; No Scleral Icterus (L), No Scleral Icterus (R) Neck: Normal Inspection, Supple Respiratory: Lungs Clear, No Accessory Muscle Use, No Respiratory Distress Cardiovascular: No JVD, No Murmur, Tachycardia (regular rate) Gastrointestinal: Normal Bowel Sounds, Non Tender, Soft Back: No CVA Tenderness (L); CVA Tenderness (R) Extremity: No Calf Tenderness, No Pedal Edema Neurologic/Psychiatric: Alert, Oriented x3, Normal Mood/Affect Skin: Normal Color, Warm/Dry Results Results/Procedures Labs Laboratory Tests 07/25/20 06:45 07/25/20 17:42 Patient resulted labs reviewed. Imaging: Reviewed Imaging Report, Discussed Imaging with Radiologist Imaging [facility], [place] NAME: PHILIP GARRETT [facility] REC#: [id number] PT STATUS: REG ER : 1945 PHYSICIAN: FIDEL MORALES MD ADMIT DATE: 07/23/20/ER Signed Date of Exam:07/23/20 CHEST 1 VIEW, AP/PA ONLY INDICATION: Shortness of breath and chest tightness. TECHNIQUE: Frontal chest obtained at 11:01 a.m. and compared to 03/28/2016. FINDINGS: Heart is borderline in size. There is mild central vascular prominence. There are chronic-appearing increased interstitial markings. There is no overt consolidation or pneumothorax or pleural fluid. IMPRESSION: Borderline heart size with central vascular prominence and chronic increased interstitial markings. No overt consolidation or pleural fluid. Dictated by: Dictated on workstation # [id number] Dict: 07/23/20 1102 Trans: 07/23/20 1131 AS [id number] Interpreted by: WANDA CLAUDIO MD Electronically signed by: WANDA CLAUDIO MD 07/23/20 [address] [facility], [place] NAME: PHILIP GARRETT [facility] REC#: [id number] PT STATUS: REG ER : 1945 PHYSICIAN: FIDEL MORALES MD ADMIT DATE: 07/23/20/ER Draft Date of Exam:07/23/20 CT ANGIO CHEST W PROCEDURE: CT angiography of the chest with contrast. TECHNIQUE: Multiple contiguous axial images were obtained through the chest after uneventful bolus administration of intravenous contrast. 3D reconstructed CTA MIP acquisitions were also performed. Auto Exposure Controls were utilized during the CT exam to meet ALARA standards for radiation dose reduction. INDICATION: Fall, syncope FINDINGS: No identifiable intraluminal arterial filling defect is seen. We note limited sensitivity on the basis of motion artifact particular challenging the distal basilar pulmonary arterial branches. There is some prominence of the pulmonary venous structures as well as some mild smooth septal thickening and element of hypervolemia or mild failure is suspected. No focal consolidation or pneumonia. No pneumothorax. No adenopathy. No soft tissue density lung mass. No effusion. The aorta is patent and nonaneurysmal. There is no pericardial collection. IMPRESSION: No demonstrated PE or acute aortic disease. Prominence of the venous structures as well as likely mild interstitial edema without pleural fluid. Dictated on workstation # [id number] Dict: 07/23/20 1212 Trans: 07/23/20 1238 SA [id number] Interpreted by: THUY NUÑEZ Electronically signed by: Assessment/Plan Admission Diagnosis Dyspnea Admission Status: Inpatient Order (span 2 midnights) Reason for Inpatient Admission: see below Assessment and Plan Dyspnea Chest Pain unclear etiology No PNA on CXR or CTA Elevated d-dimer but negative CTA for PE Troponin negative, trend EKG WNL Discussed with Cardiology who will see in consultation Flank Pain Bacteruria Await cultures No symptoms of UTI Continue on abx as above Thrombocytopenia New onset Trend Unclear etiology Heme consulted, appreciate recs HTN BP elevated but did not take meds this AM Will resume DVT ppx: Hold Lovenox for thrombocytopenia Diagnosis/Problems Diagnosis/Problems (1) Pneumonia Status: Acute Qualifiers: Pneumonia type: due to unspecified organism Laterality: unspecified laterality Lung location: unspecified part of lung Qualified Codes: J18.9 - Pneumonia, unspecified organism (2) Essential (primary) hypertension (3) Thrombocytopenia (4) Tobacco abuse (5) Person under investigation for severe acute respiratory syndrome coronavirus 2 (SARS-CoV-2) infection Status: Acute Clinical Quality Measures DVT/VTE Risk/Contraindication: Risk Factor Score Per Nursin RFS Level Per Nursing on Admit: 2=Moderate CHANTELLE NICOLE MD Jul 23, 2020 15:20
--- NOTE | 2020-07-23 15:30 | NUR ---
PHILIP GARRETT admitted to room 422-1, with an admitting diagnosis of PNA, chest pain, SOA, on 07/23/20 from [facility] ED via wheelchair, accompanied by staff.PHILIP GARRETT introduced to surroundings, call light, bed controls, phone, TV, temperature control, lights, meal times, smoking policy, visitor policy, side rail policy, bathrooms and showers. Patient Rights given to patient in the handbook. PHILIP GARRETT verbalizes understanding that [facility] is not responsible for the loss or damage to any personal effects or valuables that are kept in the patients posession during their hospitalization.
[2020-07-23] MEDS: LACTATED RINGERS 1,000 ML IV SCH ×2 (15:31→21:37)
--- NOTE | 2020-07-23 16:00 | NUR ---
Patients vancomycin infiltrated at this time. Fluids stopped. IV removed. New IV site in right forearm. Patient tolerated well. Will continue to monitor infiltration site.
[2020-07-23] MEDS: RT-ALBUTEROL INHALER HFA (VENTOLIN HFA) 18 GM IH SCH (20:58)
[2020-07-24] VITALS (9 sets, daily range): BP systolic 109–146; BP diastolic 57–80
[2020-07-24] MEDS: LACTATED RINGERS 1,000 ML IV SCH ×4 (04:21→23:19)
--- NOTE | 2020-07-24 05:31 | Diagnostic Imaging Report ---
Indication: Lower respiratory infection Portable chest 2:02 AM Heart size and pulmonary vascularity are normal. Lungs are clear. There are no effusions or pneumothoraces. IMPRESSION: No acute abnormalities the chest. No significant change from the previous day. Dictated by: Dictated on workstation # [id number]
[2020-07-24 06:16] LABS: EOSINOPHILS # (AUTO) 0.1 10^3/uL (0.0-0.3); EOSINOPHILS % (AUTO) 1 % (0-10)
[2020-07-24 06:17] LABS: BASOPHILS % (AUTO) 1 % (0-10); HEMATOCRIT 32 % (35-52); LYMPHOCYTES # (AUTO) 2.5 10^3/uL (1.0-4.0); LYMPHOCYTES % (AUTO) 37 % (12-44); MEAN CORPUSCULAR HEMOGLOBIN 32 pg (25-34); MEAN CORPUSCULAR HGB CONC 35 g/dL (32-36); MEAN CORPUSCULAR VOLUME 92 fL (80-99); MONOCYTES # (AUTO) 0.4 10^3/uL (0.0-1.0); MONOCYTES % (AUTO) 5 % (0-12); NEUTROPHILS # (AUTO) 3.6 10^3/uL (1.8-7.8); NEUTROPHILS % (AUTO) 54 % (42-75); PLATELET COUNT 78 10^3/uL (130-400); WHITE BLOOD COUNT 6.7 10^3/uL (4.3-11.0)
[2020-07-24 06:31] LABS: ALBUMIN 3.7 GM/DL (3.2-4.5); POTASSIUM 4.7 MMOL/L (3.6-5.0)
[2020-07-24 06:32] LABS: CALCIUM 9.1 MG/DL (8.5-10.1)
[2020-07-24 06:34] LABS: TOTAL PROTEIN 6.2 GM/DL (6.4-8.2)
[2020-07-24 06:36] LABS: BILIRUBIN,TOTAL 1.4 MG/DL (0.1-1.0)
[2020-07-24 06:37] LABS: CREATININE SERUM 0.94 MG/DL (0.60-1.30)
[2020-07-24] MEDS: AZITHROMYCIN 500 MG/NS 250 ML IVPB IV SCH ×2 (08:42)
[2020-07-24] MEDS: cefTRIAXone 1,000 MG/SWFI 10 ML IV PUSH IV SCH ×2 (08:43)
[2020-07-24] MEDS: ASPIRIN E.C. 81 MG (ECOTRIN) TAB PO SCH (08:43)
[2020-07-24] MEDS: RT-ALBUTEROL INHALER HFA (VENTOLIN HFA) 18 GM IH SCH ×2 (09:10→22:56)
--- NOTE | 2020-07-24 09:56 | Progress Note - Hospitalist ---
Subjective HPI/CC On Admission Date Seen by Provider: Jul 24, 2020 Time Seen by Provider: 09:51 Pt is a 75yoCF with a PMH of HTN and tobacco use who presented to the ER due to chest tightness and SOB. She states she awoke this morning with these symptoms and went to do her normal daily activities (let the dogs out, take a shower) but was unable to due them without getting very short of breath and had to do it in stages. She does not have a known COVID contact but her son (Dr Ball) is the director medical writing of the ER here and has return exposure. He and the entire family who live with her have been tested for COVID this week and have been negative. She denies any fevers. She has been having some left flank pain though and has less oral intake over the past few days with this. She denies any nausea or vomiting, diarrhea or constipation, or dysuria. Troponin was negative on arrival as was EKG. Subjective/Events-last exam Pt reports feeling better today. Was able to eat without any issue this morning. Focused Exam Lactate Level 07/24/20 14:06: Lactic Acid Level 2.94*H 07/24/20 16:05: Lactic Acid Level 2.46*H 07/24/20 18:02: Lactic Acid Level 2.95*H Time of Focused Exam: 13:02 Lactic Acid Level Laboratory Tests Test 07/24/20 16:05 07/24/20 18:02 Lactic Acid Level 2.46 MMOL/L (0.50-2.00) *H 2.95 MMOL/L (0.50-2.00) *H Objective Exam Vital Signs Vital Signs Date Time Temp Pulse Resp B/P (MAP) Pulse Ox O2 Delivery O2 Flow Rate FiO2 07/24/20 19:11 36.6 95 16 135/63 (87) 98 Nasal Cannula 1.00 Capillary Refill : Less Than 3 Seconds General Appearance: No Apparent Distress, WD/WN Respiratory: Lungs Clear, No Respiratory Distress Cardiovascular: Regular Rate, Rhythm, No Murmur Gastrointestinal: Normal Bowel Sounds, Non Tender, Soft Neurologic/Psychiatric: Alert, Oriented x3 Results/Procedures Lab Laboratory Tests 07/24/20 06:04 Patient resulted labs reviewed. Imaging: Reviewed Imaging Report, Discussed Imaging with Radiologist Assessment/Plan Assessment and Plan Assess & Plan/Chief Complaint Dyspnea Chest Pain unclear etiology No PNA on CXR or CTA- repeat CXR negative Elevated d-dimer but negative CTA for PE Serial troponin negative EKG WNL Cardiology consulted, appreciate recs Flank Pain Bacteruria Await cultures No symptoms of UTI Continue on abx as above After my exam pt developed severe back pain on right radiating to groin CTabd/pevl noncontrast ordered, discussed with Dr Montilla and reviewed films, no evidence of stone Thrombocytopenia Trended down some today with fluids resuscitation Unclear etiology, discussed with Dr Parikh who recommended DIC panel and smear for him to review Abd usg normal Hepatitis panel added HTN BP improved on home meds DVT ppx: Hold Lovenox for thrombocytopenia Diagnosis/Problems Diagnosis/Problems (1) Pneumonia Status: Acute Qualifiers: Pneumonia type: due to unspecified organism Laterality: unspecified laterality Lung location: unspecified part of lung Qualified Codes: J18.9 - Pneumonia, unspecified organism (2) Essential (primary) hypertension (3) Thrombocytopenia (4) Tobacco abuse (5) Person under investigation for severe acute respiratory syndrome coronavirus 2 (SARS-CoV-2) infection Status: Acute Clinical Quality Measures DVT/VTE Risk/Contraindication: Risk Factor Score Per Nursin RFS Level Per Nursing on Admit: 2=Moderate CHANTELLE GOLDBERG MD Jul 24, 2020 09:56
--- NOTE | 2020-07-24 10:24 | NUR ---
DR GOLDBERG NOTIFIED OF PATIETN'S C/O BACK PAIN
[2020-07-24] MEDS ORDERED: NAPROXEN 250 MG (NAPROSYN) TABLET PO NR (10:30)
[2020-07-24] MEDS ORDERED: fentaNYL INJECTION 100 MCG/2 ML AMP ONE (10:33)
--- NOTE | 2020-07-24 10:57 | Diagnostic Imaging Report ---
PROCEDURE: US Abdomen, limited. TECHNIQUE: Multiple realtime grayscale images were obtained over the abdomen in various projections. INDICATION: Right upper quadrant abdominal pain. FINDINGS: Liver is normal in size 14.5 cm. No discrete liver mass is detected. The portal vein is patent and shows normal direction of flow. Gallbladder is without stones or sludge. No wall thickening or pericholecystic fluid is identified. There is no biliary ductal dilatation. Pancreas unremarkable. Aorta and IVC are unremarkable. Right kidney is without calculi or hydronephrosis. There is no ascites. IMPRESSION: Unremarkable right upper quadrant ultrasound. Dictated by: Dictated on workstation # [id number]
[2020-07-24] MEDS ORDERED: PANTOPRAZOLE 40 MG (PROTONIX) VIAL IV NR (11:00)
--- NOTE | 2020-07-24 11:01 | NUR ---
DR GOLDBERG NOTIFIED OF PATIENT'S CONTINUED C/O SEVERE BACK PAIN AT THIS TIME. PATIENT RATED PAIN 5/10 EARLIER AND QUICKLY WENT TO 10/[address] LONDONO ON FLOOR AND NOTIFIED WITH NEW ORDERS. PATIENT REPORTS PAIN IS 'SLIGHTLY BETTER' HOWEVER, SHE IS STILL GRIMACING AND MOANING, APPEARING IN WRITHING PAIN. DR GOLDBERG NOTIFIED OF THESE FINDINGS. REPOSITIONING AND WARM BLANKET TO LOWER BACK WITH MINIMAL RELIEF. CONT TO MONITOR.
[2020-07-24] MEDS ORDERED: PANTOPRAZOLE 40 MG (PROTONIX) TAB PO ONE (11:04)
[2020-07-24] MEDS: morphine INJ 4 MG/ML 1 ML (VIAL/SYRINGE) IVP PRN ×2 (11:10→20:41)
[2020-07-24 11:20] LABS: BASOPHILS % (AUTO) 1 % (0-10); EOSINOPHILS # (AUTO) 0.1 10^3/uL (0.0-0.3); EOSINOPHILS % (AUTO) 1 % (0-10); MONOCYTES % (AUTO) 5 % (0-12)
[2020-07-24 11:23] LABS: ABSOLUTE RETIC # 89 10e9/uL (24-90); HEMATOCRIT 32 % (35-52); LYMPHOCYTES # (AUTO) 2.5 10^3/uL (1.0-4.0); LYMPHOCYTES % (AUTO) 37 % (12-44); MEAN CORPUSCULAR HEMOGLOBIN 32 pg (25-34); MEAN CORPUSCULAR HGB CONC 35 g/dL (32-36); MEAN CORPUSCULAR VOLUME 93 fL (80-99); MONOCYTES # (AUTO) 0.3 10^3/uL (0.0-1.0); NEUTROPHILS # (AUTO) 3.7 10^3/uL (1.8-7.8); NEUTROPHILS % (AUTO) 54 % (42-75); PLATELET COUNT 81 10^3/uL (130-400); RETICULOCYTE % 2.61 % (0.50-2.40); WHITE BLOOD COUNT 6.7 10^3/uL (4.3-11.0)
[2020-07-24] MEDS ORDERED: HYDROmorphone 2 MG/ML VIAL (DILAUDID) ONE (11:31)
[2020-07-24 11:35] LABS: BAND NEUTROPHILS 3 %; NEUTROPHILS % (MANUAL) 49 %
[2020-07-24 11:36] LABS: BASOPHILS % (MANUAL) 1 %; EOSINOPHILS % (MANUAL) 1 %; LYMPHOCYTES % (MANUAL) 37 %; MONOCYTES % (MANUAL) 8 %; MYELOCYTES % 1 %; RBC MORPH NORMAL; SMUDGE CELLS SLIGHT
--- NOTE | 2020-07-24 12:25 | NUR ---
DR GOLDBERG NOTIFIED OF LACTIC ACID 3.70. NEW ORDER FOR LR BOLUS 500ML. LR HANGING AND BOLUSED AT THIS TIME 500CC@ 999ML/HR
--- NOTE | 2020-07-24 12:30 | NUR ---
PATIENT TAKEN TO CT SCAN AT THIS TIME. 1L O2, PATIENT CONT WITH IV BOLUS.
[2020-07-24] MEDS ORDERED: LACTATED RINGERS 500 ML IV ONE (12:31)
--- NOTE | 2020-07-24 14:02 | Diagnostic Imaging Report ---
PROCEDURE: CT urinary tract, rule out kidney stone. TECHNIQUE: Multiple contiguous axial images were obtained through the abdomen and pelvis without the use of intravenous contrast. Auto Exposure Controls were utilized during the CT exam to meet ALARA standards for radiation dose reduction. INDICATION: Right-sided abdominal pain. COMPARISON: No prior studies are available for comparison. FINDINGS: There is some levf-ei-mntwaqxs interlobular septal thickening at both lung bases, suggestive of interstitial fibrotic scarring. There are some micronodules scattered throughout bilateral lower lobes in subpleural locations and along the hemidiaphragm, nonspecific. Low-attenuation lesion in the dome of the right lobe of the liver measures 11 mm. No other liver lesions are seen. Gallbladder is unremarkable. There is no biliary ductal dilatation. Pancreas and spleen are unremarkable. No adrenal mass is detected. No renal calculi or hydronephrosis are identified. Aorta and iliac vessels are heavily calcified but nonaneurysmal. No ureteral or bladder calculi are detected. Small and large bowel loops are normal in caliber. There is no obstruction. There is extensive diverticulosis of the descending and sigmoid colon but no evidence of acute diverticulitis. No free fluid or fluid collection is identified. There is a small fat-containing umbilical hernia. There are numerous calcified masses within the uterus, consistent with fibroids. No other significant abnormality is seen. IMPRESSION: 1. No evidence of urinary tract calculi or obstruction. 2. Low-attenuation lesion in the liver, too small to characterize but likely a small cyst. 3. Extensive uncomplicated colonic diverticulosis. 4. Uterine fibroids. 5. Small fat-containing umbilical hernia. Dictated by: Dictated on workstation # [id number]
[2020-07-24 14:39] LABS: FIBRIN DEGRADATION PRODUCTS 4.46 UG/ML (0.00-0.49); INR 1.1 (0.8-1.4); PROTHROMBIN TIME PATIENT 14.1 SEC (12.2-14.7)
--- NOTE | 2020-07-24 14:55 | NUR ---
DR GOLDBERG NOTIFIED OF LACTIC ACID 2.76. PATIENT DENIES NEEDS OR C/O AT THIS TIME. CONT TO MONITOR.
[2020-07-24] MEDS ORDERED: HYOSCYAMINE 0.125 MG (LEVSIN) TAB PO PRN (15:00)
--- NOTE | 2020-07-24 15:01 | Diagnostic Imaging Report ---
PROCEDURE: US Venous Lower Ext Neto. TECHNIQUE: Multiple real-time grayscale images were obtained over the lower extremities in various projections, bilaterally. Additional duplex Doppler and color Doppler images were also obtained. INDICATION: Thyroid for DVT. There is no evidence of right or left lower extremity DVT. Both lower extremity deep venous system show normal compressibility with normal response to augmentation and Valsalva. No fluid collection or mass is detected. IMPRESSION: No evidence of right or left lower extremity DVT. Dictated by: Dictated on workstation # [id number]
--- NOTE | 2020-07-24 15:16 | Diagnostic Imaging Report ---
INDICATION: Kidney stones COMPARISON: CT from the same date TECHNIQUE: Single radiograph of the abdomen dated 07/24/2020 FINDINGS: Healing/healed posterior right 11th rib fracture. Degenerative changes within the osseous structures without acute osseous abnormality. Nonobstructive bowel gas pattern. No free air. No definite calcifications noted overlying the renal shadows. Phleboliths within the lower pelvis. IMPRESSION: 1. Healing/healed posterior right 11th rib fracture. Recommend correlation for focal pain at this location. 2. No evidence of bowel obstruction. 3. No definite calcifications overlying the renal shadows. Dictated by: Dictated on workstation # [id number]
[2020-07-24] MEDS: metroNIDAZOLE 500MG/100ML IVPB 100 ML IV SCH ×2 (15:56→23:19)
--- NOTE | 2020-07-24 15:56 | Consultation-Cardiology ---
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 She has history of htn and active smoking. pertinent family history is negative. no covid exposure. chest discomfort/shortness of breath. c/o abdominal and flank pain. negative troponin and stable EKG Review of Systems-Cardiology Review of Systems Constitutional: As described under HPI; No As described under HPI, No no symptoms reported, No chills, No fever, No lightheadedness Eyes: No As described under HPI, No no symptoms reported, No blindness, No blurred vision, No contact lenses, No drainage, No decreased acuity, No foreign body sensation, No pain, No vision change Ears/Nose/Throat: No As described under HPI, No no symptoms reported, No chronic hearing loss, No ear discharge, No ear pain, No nasal drainage, No ulcerations Respiratory: No no symptoms reported; As described under HPI; No As described under HPI, No cough, No orthopnea; shortness of breath; No SOB with excertion Cardiovascular: No no symptoms reported; As described under HPI; No As described under HPI; chest pain; No edema, No irregular heart rate, No lightheadedness, No palpitations Gastrointestinal: No no symptoms reported, No As described under HPI, No abdomen distended; abdominal pain; No blood streaked bowels, No constipation, No diarrhea, No nausea, No vomiting, No stool coloration changes Genitourinary: No As described under HPI, No burning, No dysuria, No discharge, No frequency, No flank pain, No hematuria, No urgency : Yes : No Skin: No rash, No skin related problems, No ulcerations Psychiatric/Neurological: No anxiety, No depression, No seizure, No focal weakness, No syncope Hematologic: No bleeding abnormalities All Other Systems Reviewed Negative Unless Noted: Yes YEZ-Ecwmyr-Mdaavj Hx Patient Social History Employed/Student: retired Alcohol Use: Regular Use Recreational Drug Use: No Smoking Status: Current Everyday Smoker Type Used: Cigarettes Recent Foreign Travel: No Recent Infectious Disease Expo: No Hospitalization with Isolation: Denies Physical Abuse Screen: No Sexual Abuse: No Immunizations Up To Date Tetanus Booster (TDap): Unknown Date of Pneumonia Vaccine: Aug 07, 2017 Date of Influenza Vaccine: May 07, 2020 Past Medical History PMH As described under Assessment. Allergies and Home Medications Allergies Coded Allergies: No Known Drug Allergies (Unverified , 09/21/16) Home Medications Alendronate Sodium 70 Mg/75 Ml Solution, 70 MG PO WEEKLY, (Reported) Amlodipine Besylate 5 Mg Tablet, 5 MG PO DAILY, (Reported) Aspirin 81 Mg Tabec, 81 MG PO DAILY, (Reported) Benazepril Hcl 10 Mg Tablet, 1 EACH PO DAILY, (Reported) Naproxen Sodium 220 Mg Tablet, 220 MG PO DAILY, (Reported) [place] 3 Polyunsat Fatty Acids 1,000 Mg Cap, 1,000 MG PO BID, (Reported) Patient Home Medication List Home Medication List Reviewed: Yes Physical Exam-Cardiology Physical Exam Vital Signs/I&O 07/26/20 00:00 Intake Total 100 ml Balance 100 ml Capillary Refill : Less Than 3 Seconds Constitutional: AAO x 3 HEENT: PERRL; No discharge; hearing is well preserved, oral hygience is good; No ulceration, No xanthelasmas are seen Neck: No carotid bruit; carotid pulses are 2 + bilaterally Respiratory: chest is bilaterally symmetric, lungs clear to auscultation Cardiovascular: regular rate-rhythm, S1 and S2; No systolic murmur Gastrointestinal: tender, audible bowel sounds; No spleenomegaly Rectal: deferred Extremities: normal range of motion, non-tender, normal inspection; No clubbing, No cyanosis; no lower extremity edema bilateral; No significant edema Neurologic/Psychiatric: no motor/sensory deficits, alert, normal mood/affect, oriented x 3, power is 5/5 both on sides Skin: normal color, warm/dry Data Review Labs Microbiology 07/23/20 Blood Culture - Preliminary, Resulted No growth 07/23/20 Urine Culture - Final, Complete >=3 Gram Positive Isolates 07/23/20 Influenza Types A,B Antigen (BAILEY) - Final, Complete ECG Impression ECG Initial ECG Rhythm: Normal Sinus Initial ECG Impression: Nonspecific Changes A/P-Cardiology Assessment/Admission Diagnosis chest pain, shortness of breath, thrombocytopenia, positive ddimer, abdominal pain, lactic acidosis Plan - serial troponin. x2 negative. - Echo - no evidence of florid CHF - r/o PE and DVT with bilateral LE arterial US and CTA chest. - IV antibiotics for possible sepsis - Dr Aguilra consulted for low platelet count. Thank you for your consultation. Please call me if you have any questions. Nima Cardona MD, FACP, FACC, FSCAI, FHRS, CCDS Interventional Cardiology Cardiac Electrophysiology Vascular Medicine and Endovascular Interventions Clinical Quality Measures DVT/VTE Risk/Contraindication: Risk Factor Score Per Nursin RFS Level Per Nursing on Admit: 2=Moderate Real CARDONA MD Jul 24, 2020 15:56
--- NOTE | 2020-07-24 16:42 | NUR ---
DR GOLDBERG NOTIFIED OF LACTIC ACID 2.46
--- NOTE | 2020-07-24 18:45 | NUR ---
DR GOLDBERG NOTIFIED OF PATIENT'S LACTIC ACID 2.95.
--- NOTE | 2020-07-24 18:59 | NUR ---
LAB NOTIFIED OF DR GOLDBERG'S ORDERS OF LACTIC X 1 MORE AND THEN ALLOW PATIENT TO REST. PATIENT EDUCATED ON ORDER. PATIENT DENIES NEEDS OR C/O AT THIS TIME . CONT TO MONITOR.
--- NOTE | 2020-07-24 21:00 | NUR ---
DR GOLDBERG NOTIFIED OF CRITICAL LACTIC ACID AT 2030. DR GOLDBERG CALLED THIS NURSE AT 2100 TO ASK HOW PT IS FEELING. THIS NURSE REPORTS THAT PATIENT COMPLAINED OF PAIN AFTER EATING DINNER ON THE RIGHT SIDE OF HER ABD, PT REPORTS IT IS AT THE SAME LOCATION EARLIER IN THE DAY. REPORTS PAIN IS AT 6/10, 1MG MORPHINE GIVEN PER EMAR, PT REPORTS FEELING BETTER AFTER THAT. DR GOLDBERG SAYS THAT IF PT EXPERIENCES SEVERE PAIN LIKE EARLIER TO NOTIFY HER, BECAUSE PT MAY NEED ANOTHER SCAN. AND THAT THERE IS AN ORDER IN FOR LACTIC ACID LABS IN THE MORNING. WILL CONT. TO MONITOR
[2020-07-24 23:12] LABS: HEPATITIS C ANTIBODY C Non-Reactive (Non-Reactive)
[2020-07-25] VITALS (7 sets, daily range): BP systolic 136–153; BP diastolic 60–91
[2020-07-25] MEDS: LACTATED RINGERS 1,000 ML IV SCH ×2 (06:48→15:01)
[2020-07-25 06:56] LABS: BASOPHILS % (AUTO) 0 % (0-10); HEMOGLOBIN 10.1 g/dL (11.5-16.0)
[2020-07-25 06:58] LABS: EOSINOPHILS # (AUTO) 0.1 10^3/uL (0.0-0.3); EOSINOPHILS % (AUTO) 2 % (0-10); HEMATOCRIT 30 % (35-52); LYMPHOCYTES # (AUTO) 2.2 10^3/uL (1.0-4.0); LYMPHOCYTES % (AUTO) 32 % (12-44); MEAN CORPUSCULAR HEMOGLOBIN 32 pg (25-34); MEAN CORPUSCULAR HGB CONC 34 g/dL (32-36); MEAN CORPUSCULAR VOLUME 95 fL (80-99); MONOCYTES # (AUTO) 0.3 10^3/uL (0.0-1.0); MONOCYTES % (AUTO) 5 % (0-12); NEUTROPHILS # (AUTO) 3.8 10^3/uL (1.8-7.8); NEUTROPHILS % (AUTO) 57 % (42-75); PLATELET COUNT 70 10^3/uL (130-400); WHITE BLOOD COUNT 6.7 10^3/uL (4.3-11.0)
[2020-07-25 07:07] LABS: ALBUMIN 3.5 GM/DL (3.2-4.5)
[2020-07-25 07:08] LABS: CHLORIDE 104 MMOL/L (98-107); POTASSIUM 4.7 MMOL/L (3.6-5.0); SODIUM 135 MMOL/L (135-145)
[2020-07-25 07:09] LABS: CALCIUM 8.7 MG/DL (8.5-10.1)
[2020-07-25 07:10] LABS: FIBRIN DEGRADATION PRODUCTS 3.82 UG/ML (0.00-0.49); GLUCOSE 100 MG/DL (70-105); INR 1.1 (0.8-1.4); PROTHROMBIN TIME PATIENT 14.4 SEC (12.2-14.7); TOTAL PROTEIN 5.8 GM/DL (6.4-8.2)
[2020-07-25 07:11] LABS: CARBON DIOXIDE 20 MMOL/L (21-32)
[2020-07-25 07:12] LABS: BILIRUBIN,TOTAL 1.6 MG/DL (0.1-1.0)
[2020-07-25 07:13] LABS: ALKALINE PHOSPHATASE 46 U/L (40-136)
[2020-07-25 07:14] LABS: CREATININE SERUM 0.89 MG/DL (0.60-1.30); GFR ESTIMATED > 60
[2020-07-25 07:15] LABS: BUN/CREATININE RATIO 19
[2020-07-25 07:16] LABS: ALANINE AMINOTRANSFERASE 15 U/L (0-55)
[2020-07-25] MEDS: ASPIRIN E.C. 81 MG (ECOTRIN) TAB PO SCH (08:46)
[2020-07-25] MEDS: metroNIDAZOLE 500MG/100ML IVPB 100 ML IV SCH ×2 (08:46→17:28)
[2020-07-25] MEDS: cefTRIAXone 1,000 MG/SWFI 10 ML IV PUSH IV SCH ×2 (08:46)
[2020-07-25] MEDS ORDERED: PANTOPRAZOLE 40 MG (PROTONIX) VIAL IV SCH (09:00)
[2020-07-25] MEDS: AZITHROMYCIN 500 MG/NS 250 ML IVPB IV SCH ×2 (10:07)
[2020-07-25] MEDS: RT-ALBUTEROL INHALER HFA (VENTOLIN HFA) 18 GM IH SCH (10:10)
--- NOTE | 2020-07-25 10:29 | Progress Note - Urology ---
Progress Note-Urology Progress Notes/Assess & Plan Progress/Assessment & Plan FEELING BETTER. PAIN BETTER. STILL NO RASH. CTA ABDOMEN TODAY Final Diagnosis RUQ AND FLANK PAIN PIERRE BRAVO MD Jul 25, 2020 10:29
[2020-07-25] MEDS ORDERED: HEParin DRIP 25000 UNIT/500ML 500 ML IV ONE ×2 (10:45→13:58)
[2020-07-25] MEDS ORDERED: HEParin 1000 UNIT/ML (10ML VIAL) FOR BOLUS IV ONE (10:45)
[2020-07-25] MEDS ORDERED: HOLD METFORMIN - RECEIVED CONTRAST 20 ML VIAL IV SCH (11:00)
[2020-07-25] MEDS ORDERED: IOHEXOL 350 MG/ML 100 ML (OMNIPAQUE 350) VIAL IV ONE (11:00)
[2020-07-25] MEDS ORDERED: NS 100 ML (IVPB) BAG IV ONE (11:00)
[2020-07-25] MEDS ORDERED: LORazepam INJ 2 MG/ML (ATIVAN) VIAL IVP PRN (11:00)
--- NOTE | 2020-07-25 12:20 | Progress Note - Hospitalist ---
Subjective HPI/CC On Admission Date Seen by Provider: Jul 25, 2020 Time Seen by Provider: 12:13 Pt is a 75yoCF with a PMH of HTN and tobacco use who presented to the ER due to chest tightness and SOB. She states she awoke this morning with these symptoms and went to do her normal daily activities (let the dogs out, take a shower) but was unable to due them without getting very short of breath and had to do it in stages. She does not have a known COVID contact but her son (Dr Ball) is the medical technologist chief of the ER here and has return exposure. He and the entire family who live with her have been tested for COVID this week and have been negative. She denies any fevers. She has been having some left flank pain though and has less oral intake over the past few days with this. She denies any nausea or vomiting, diarrhea or constipation, or dysuria. Troponin was negative on arrival as was EKG. Subjective/Events-last exam Pt reports feeling better today. No current complaints. Had some pain after ea ting dinner last night but not nearly as bad as yesterday. Has persistent lactic acidosis. Discussed with her and her son [place] regarding further evaluation. CTA ordered given concern for mesenteric ischemia. Discussed with Dr Cardona, Dr Parikh, and Dr Haskins as well. Focused Exam Lactate Level 07/24/20 18:02: Lactic Acid Level 2.95*H 07/24/20 20:02: Lactic Acid Level 3.03*H 07/25/20 06:45: Lactic Acid Level 2.52*H Time of Focused Exam: 13:02 Objective Exam Vital Signs Vital Signs Date Time Temp Pulse Resp B/P (MAP) Pulse Ox O2 Delivery O2 Flow Rate FiO2 07/25/20 11:40 36.6 103 16 136/69 (91) 95 Nasal Cannula 1.00 Capillary Refill : Less Than 3 Seconds General Appearance: No Apparent Distress, WD/WN Respiratory: Lungs Clear, No Accessory Muscle Use, Other (on NC) Cardiovascular: Regular Rate, Rhythm, No Murmur Gastrointestinal: Normal Bowel Sounds, Non Tender, Soft; No Distended, No Guarding, No Rebound Extremity: No Calf Tenderness, No Pedal Edema Neurologic/Psychiatric: Alert, Oriented x3 Results/Procedures Lab Laboratory Tests 07/25/20 06:45 Patient resulted labs reviewed. Imaging: Reviewed Imaging Report, Discussed Imaging with Radiologist Assessment/Plan Assessment and Plan Assess & Plan/Chief Complaint Flank Pain Presumed mesenteric ischemia After my exam pt developed severe back pain on right radiating to groin CT abd/pevl noncontrast ordered, discussed with Dr Montilla and reviewed films, no evidence of stone given persistent lactic acidosis and postprandial symptoms more concerning for mesenteric ischemia Discussed with Dr Cardona who recommended CTA abdomen, ordered Discussed with Dr Haskins as well to have on stand by if surgical intervention needed for ischemia Discussed with Dr Parikh due to need for heparin gtt and thrombocytopenia Transfer to [facility] for closer monitoring with heparin gtt Dyspnea Chest Pain unclear etiology No PNA on CXR or CTA- repeat CXR negative Elevated d-dimer but negative CTA for PE Serial troponin negative EKG WNL Cardiology consulted, appreciate recs Continue IV abx for now COVID negative by rapid and PCR Thrombocytopenia Anemia Relatively stable at 70 but down slightly Unclear etiology, appreciate Dr Parikh's expertise Abd usg normal Hepatitis panel negative DIC panel essentially negative but fibrinogen did drop slightly though still WNL HTN BP improved on home meds Consider switching to Imdur DVT ppx: Heparin gtt Diagnosis/Problems Diagnosis/Problems (1) Pneumonia Status: Acute Qualifiers: Pneumonia type: due to unspecified organism Laterality: unspecified laterality Lung location: unspecified part of lung Qualified Codes: J18.9 - Pneumonia, unspecified organism (2) Essential (primary) hypertension (3) Thrombocytopenia (4) Tobacco abuse (5) Person under investigation for severe acute respiratory syndrome coronavirus 2 (SARS-CoV-2) infection Status: Acute Clinical Quality Measures DVT/VTE Risk/Contraindication: Risk Factor Score Per Nursin RFS Level Per Nursing on Admit: 2=Moderate CHANTELLE GOLDBERG MD Jul 25, 2020 12:20
--- NOTE | 2020-07-25 12:38 | NUR ---
PT TAKEN OFF FLOOR VIA W/C TO CT. 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
[2020-07-25] MEDS ORDERED: HEParin 1000 UNIT/ML (10ML VIAL) FOR BOLUS ONE (13:58)
--- NOTE | 2020-07-25 14:06 | CONSULTATION REPORT ---
DATE OF SERVICE: 07/25/2020 The patient is admitted to room 421. PHYSICIAN REQUESTING CONSULTATION: Velvet Nicole MD IMPRESSION: 1. A 75-year-old female admitted to the hospital with shortness of breath. COVID testing including PCR as well as CT angiogram of chest unremarkable. 2. Two-week history of postprandial abdominal discomfort as well as mild hematochezia, clinically consistent with ischemic bowel. 3. Anemia and thrombocytopenia of undetermined etiology. Probably related to mild GI blood loss as well as low-grade DIC. 4. Longstanding history of hypertension and tobacco use, which was stopped recently. RECOMMENDATIONS: 1. Agree with CT angiogram of the abdomen to evaluate for mesenteric ischemia. 2. Agree with heparin drip, but monitor for bleeding as well as worsening thrombocytopenia. 3. Monitor lab work including DIC panel serially. 4. If patient requires surgery, would recommend having platelets on hold or transfused prior to surgery because of thrombocytopenia. 5. I will follow the patient with you. BRIEF HISTORY: The patient is a 75-year-old female, who gave two-week history of abdominal discomfort after meals. She has been eating small amounts of food for the past 2 weeks with initial improvement. She developed lower chest/upper abdominal discomfort and shortness of breath on 07/23/2020 and came to the emergency room. She was evaluated and admitted to the hospital for further workup and management. She also gave history of change in bowel habits as well as a small amount of orange stools since the last 1 to 2 weeks. No fevers or chills. No known exposure to COVID-19. PAST MEDICAL HISTORY: Significant for longstanding hypertension, but she denied coronary artery disease or NM. PAST SURGICAL HISTORY: Only previous surgery was a tubal ligation several decades ago. 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 She has approximately [id number] history of tobacco use, but weaned herself and quit smoking few months ago. No alcohol or recreational drug use. She is living in [place] with her son. FAMILY HISTORY: Significant for her mother with hypertension, father with lung cancer, paternal grandmother with breast cancer and a cousin on the maternal side of family with colon cancer. No hematologic problems in the family that the patient knows of. PHYSICAL EXAMINATION: GENERAL: Showed an elderly female, well developed and nourished, awake and oriented. Mild discomfort because of the abdominal pain. VITAL SIGNS: Temperature was 36.6, pulse rate 98, respirations 18 and blood pressure 149/68 with oxygen saturation 90% on oxygen at 1 liter by nasal cannula. HEENT: Normocephalic, extraocular muscles intact, conjunctivae pink, oral mucosa moist. NECK: Supple, with no JVD. No cervical, supraclavicular or axillary lymphadenopathy palpable. CHEST: Symmetrical. LUNGS: With slightly diminished breath sounds bilaterally without any wheezes or rales. CARDIOVASCULAR: Borderline tachycardic, regular with no murmurs or gallops heard. ABDOMEN: Soft with mild generalized discomfort without guarding or rebound. Abdominal sounds were slightly diminished and tympanitic. EXTREMITIES: Showed no edema or petechiae. NEUROLOGIC: Grossly intact without focal motor deficits. LABORATORY DATA: CBC done today showed WBC 6.7, hemoglobin 10.1, MCV 95, platelet count 70,000 with neutrophil count 3.8 and lymphocyte count 2.2. I reviewed the peripheral smear done yesterday on 07/24/2020. This showed the white blood cells to be relatively unremarkable except for slight toxic granulation. No immature cells identified. Platelets appeared slightly below normal with few large platelets. No platelet clumping noted. The red cells showed anisocytosis and poikilocytosis. Polychromatophilic cells noted. A 2-3 schistocytes per high power field was noted. Chemistry panel showed relatively normal electrolytes. BUN was 17 and creatinine 0.89 with GFR more than 60 mL per minute. Total bilirubin was 1.6 with rest of the liver function studies within normal limits. Lactic acid has been slightly elevated ranging between 2.46 and 3.03. Protime was 14.4 with INR 1.1. Fibrinogen was 378 with a D-dimer of 3.82. Previous fibrinogen level was 448 yesterday and D-dimer of 4.46. CT angiogram of the chest showed no evidence of PE or acute aortic disease. Prominence of venous structures with mild interstitial edema without pleural fluid. CT scan of the abdomen and pelvis without contrast showed no evidence of urinary tract calculi or obstruction, so low attenuation lesion in the liver, too small to characterize, but likely a small cyst. Extensive uncomplicated colonic diverticulosis. Uterine fibroids and a small fat containing umbilical hernia. Thank you for allowing me to participate in this patient's care. I will follow the patient with you and make appropriate recommendations. Job ID: [id number] DocumentID: [id number] Dictated Date: 07/25/2020 11:44:[address] Date: 07/25/2020 13:31:18 Dictated By: TOMMY CAMARA MD MTDSalima
--- NOTE | 2020-07-25 14:40 | Diagnostic Imaging Report ---
INDICATION: Abdominal pain FINDINGS: While there is diffuse calcified plaque of the abdominal aorta, that vessel is normal in caliber and patent. There is patency and opacification of the celiac, the superior mesenteric and the inferior mesenteric arteries as well as those vessels primary branches. There were no findings of acute solid or hollow visceral end organ involvement by ischemia. No arterial thrombus. No pneumatosis or free gas. There is no aneurysm, dissection, mural hemorrhage or rupture. This patient has small nonloculated basilar pleural effusions There is a cyst in the right hepatic lobe anteriorly at the dome. The gallbladder and bile ducts unremarkable. Spleen adrenals and pancreas negative. There is no hydroureteronephrosis. There is no mesenteric or retroperitoneal adenopathy. There is a tiny fatty umbilical hernia. There are uterine calcifications and nodularity consistent with fibroids. No adnexal abnormality. There is sigmoid diverticulosis with trace pelvic free fluid. No loculated collection or abscess. The findings were not suggestive of acute diverticulitis. IMPRESSION: 1. Widely patent mesenteric branches, atherosclerotic but patent abdominal aorta. Small volume pelvic free fluid with noninflamed sigmoid diverticulosis. 2. Tiny pleural effusions. The basilar interstitial markings are prominent and thickened, likely owing to interstitial edema. Dictated by: Dictated on workstation # [id number]
[2020-07-25] MEDS ORDERED: ISOSORBIDE MONONITRATE 30 MG (IMDUR) TAB PO ONE (15:15)
[2020-07-25] MEDS ORDERED: HEParin DRIP 25000 UNIT/500ML 500 ML IV SCH (16:15)
--- NOTE | 2020-07-25 16:32 | Consultation - Surgery ---
History of Present Illness History of Present Illness Patient Consulted On(lolis/time) 07/25/20 11:27 Date Seen by Provider: Jul 25, 2020 Time Seen by Provider: 11:27 History of Present Illness Consult requested by Dr. Nicole for abdominal pain right upper quadrant right flank. Patient is a 75-year-old female who has been having abdominal pain for approximately 2 weeks. Patient states that she will eat and then have pain that varies in intensity but more recently has been fairly severe. The narcotics that she is received has calmed the pain down. The pain will probably start about an hour and a half after eating and then goes away on its own. She has started having some food aversion and eating smaller amounts because of the pain. She states some foods cause worsening pain than others. She is not having any fever sweats chills chest pain nausea or vomiting at this time. She had a gallbladder ultrasound which was normal. She had a CT scan abdomen pelvis yesterday which showed no evidence of urinary tract calculi or obstruction likely small cyst of the liver, diverticulosis, uterine fibroids, small fat- containing umbilical hernia. Allergies and Home Medications Allergies Coded Allergies: No Known Drug Allergies (Unverified , 09/21/16) Home Medications Alendronate Sodium 70 Mg/75 Ml Solution, 70 MG PO WEEKLY, (Reported) Amlodipine Besylate 5 Mg Tablet, 5 MG PO DAILY, (Reported) Aspirin 81 Mg Tabec, 81 MG PO DAILY, (Reported) Benazepril Hcl 10 Mg Tablet, 1 EACH PO DAILY, (Reported) Naproxen Sodium 220 Mg Tablet, 220 MG PO DAILY, (Reported) Ketchum 3 Polyunsat Fatty Acids 1,000 Mg Cap, 1,000 MG PO BID, (Reported) Patient Home Medication List Home Medication List Reviewed: Yes Past Nhyefuv-Xrfawy-Lsqjdz Hx Patient Social History Alcohol Use: Regular Use Recreational Drug Use: No Smoking Status: Current Everyday Smoker Type Used: Cigarettes Recent Foreign Travel: No Contact w/Someone Who Travel: No Recent Infectious Disease Expo: No Recent Hopitalizations: No Physical Abuse Screen: No Sexual Abuse: No Immunizations Up To Date Tetanus Booster (TDap): Unknown Date of Pneumonia Vaccine: Aug 07, 2017 Date of Influenza Vaccine: May 07, 2020 Seasonal Allergies Seasonal Allergies: No Surgeries History of Surgeries: Yes Surgeries: Tubal Ligation Respiratory History of Respiratory Disorde: No Cardiovascular History of Cardiac Disorders: Yes Cardiac Disorders: Hypertension Neurological History of Neurological Disord: No Reproductive System Hx Reproductive Disorders: No Sexually Transmitted Disease: No HIV/AIDS: No Female Reproductive Disorders: Denies Gastrointestinal History of Gastrointestinal Di: No (OCCASSIONAL HEARTBURN) Gastrointestinal Disorders: Gastroesophageal Reflux, Polyps Musculoskeletal History of Musculoskeletal Dis: No Endocrine History of Endocrine Disorders: No HEENT Loss of Vision: Denies Hearing Impairment: Denies Cancer History of Cancer: No Psychosocial History of Psychiatric Problem: No Integumentary History of Skin or Integumenta: No Blood Transfusions History of Blood Disorders: No Reviewed Nursing Assessment Reviewed/Agree w Nursing PMH: Yes Family Medical History Significant Family History: No Pertinent Family Hx Review of Systems-General Constitutional: No chills, No diaphoresis EENTM: No blurred vision, No double vision Respiratory: No cough; short of breath Cardiovascular: No chest pain, No edema Gastrointestinal: RUQ; No nausea, No vomiting Genitourinary: No decreased output, No discharge Musculoskeletal: back pain (Right flank); No joint pain Skin: No change in color, No change in hair/nails Psychiatric/Neurological: Denies Anxiety, Denies Depressed, Denies Emotional Problems All Other Systems Reviewed Negative Unless Noted: Yes (Negative excepted noted.) Physical Exam-General Problems Physical Exam Vital Signs Vital Signs - First Documented 07/23/20 07/23/20 10:07 14:36 Temp 35.9 Pulse 134 Resp 20 B/P (MAP) 173/90 (117) Pulse Ox 97 O2 Delivery Room Air O2 Flow Rate 1.00 Capillary Refill : Less Than 3 Seconds General Appearance: WD/WN, no apparent distress (Sitting in chair) HEENT: PERRL/EOMI, normal ENT inspection Neck: non-tender, supple, normal inspection Respiratory: chest non-tender, no respiratory distress, no accessory muscle use Cardiovascular: regular rate, rhythm, no JVD Gastrointestinal: non tender, soft; No guarding, No rebound Rectal: deferred Back: no CVA tenderness, no vertebral tenderness Extremities: non-tender, normal inspection Neurologic/Psychiatric: alert, normal mood/affect, oriented x 3 Skin: normal color, warm/dry, other (Slight bruising right flank) Lymphatic: no adenopathy Data Review Labs Laboratory Tests 07/24/20 18:02: Lactic Acid Level 2.95*H 07/24/20 20:02: Lactic Acid Level 3.03*H 07/25/20 06:45: Lactic Acid Level 2.52*H, White Blood Count 6.7, Red Blood Count 3.13L, Hemoglobin 10.1L, Hematocrit 30L, Mean Corpuscular Volume 95, Mean Corpuscular Hemoglobin 32, Mean Corpuscular Hemoglobin Concent 34, Red Cell Distribution Width 13.7, Platelet Count 70L, Mean Platelet Volume , Immature Granulocyte % (Auto) 4, Neutrophils (%) (Auto) 57, Lymphocytes (%) (Auto) 32, Monocytes (%) (Auto) 5, Eosinophils (%) (Auto) 2, Basophils (%) (Auto) 0, Neutrophils # (Auto) 3.8, Lymphocytes # (Auto) 2.2, Monocytes # (Auto) 0.3, Eosinophils # (Auto) 0.1, Basophils # (Auto) 0.0, Immature Granulocyte # (Auto) 0.3H, Prothrombin Time 14.4, INR Comment 1.1, Activated Partial Thromboplast Time 30, Fibrinogen 378, D-Dimer 3.82H, Sodium Level 135, Potassium Level 4.7, Chloride Level 104, Carbon Dioxide Level 20L, Anion Gap 11, Blood Urea Nitrogen 17, Creatinine 0.89, Estimat Glomerular Filtration Rate > 60, BUN/Creatinine Ratio 19, Glucose Level 100, Calcium Level 8.7, Corrected Calcium 9.1, Total Bilirubin 1.6H, Aspartate Amino Transf (AST/SGOT) 34, Alanine Aminotransferase (ALT/SGPT) 15, Alkaline Phosphatase 46, Troponin I 0.236H, Total Protein 5.8L, Albumin 3.5 07/25/20 15:35: Microbiology 07/23/20 Blood Culture - Preliminary, Resulted No growth 07/23/20 Urine Culture - Final, Complete >=3 Gram Positive Isolates 07/23/20 Influenza Types A,B Antigen (BAILEY) - Final, Complete Assessment/Plan Assessment/Plan Assessment/Plan Postprandial abdominal pain right upper quadrant right flank pain Thrombocytopenia Hypertension Possible mesenteric ischemia. Patient for CTA abdomen pelvis today. If this is normal would obtain HIDA scan for completion work-up of gallbladder which would be in differential Clinical Quality Measures DVT/VTE Risk/Contraindication: Risk Factor Score Per Nursin RFS Level Per Nursing on Admit: 2=Moderate FARIDA GASTELUM DO Jul 25, 2020 16:32
--- NOTE | 2020-07-25 18:28 | Cardiology Progress Note ---
Cardiology SOAP Progress Note Subjective: moderate to severe abdominal discomfort Objective: I&O/Vital Signs 07/26/20 00:00 Intake Total 100 ml Balance 100 ml Weight (Pounds): 210 Weight (Ounces): 0.0 Weight (Calculated Kilograms): 95.543391 Constitutional: AAO x 3 Respiratory: chest is bilaterally symmetric, lungs clear to auscultation Cardiovascular: regular rate-rhythm, tachycardia, S1 and S2 Gastrointestional: tender Extremities: normal range of motion, non-tender, normal inspection Neurologic/Psychiatric: no motor/sensory deficits, alert, normal mood/affect, oriented x 3 Skin: normal color, warm/dry Results/Procedures: Labs Microbiology 07/23/20 Blood Culture - Preliminary, Resulted No growth 07/23/20 Urine Culture - Final, Complete >=3 Gram Positive Isolates 07/23/20 Influenza Types A,B Antigen (BAILEY) - Final, Complete A/P: Assessment/Dx: chest pain, shortness of breath, thrombocytopenia, positive ddimer, abdominal pain, lactic acidosis Plan: - serial troponin. x2 negative. however this am troponin is borderline positive. EKG shows sinus tachycardia. no ST-T wave abnormalities. repeat troponin in am; if further trend upwards, will consider coronary angiography. might require platelet transfusion before cath, if required. - Echo - shows normal LV fx. Pulmonary HTN - no evidence of florid CHF - r/o PE and DVT with bilateral LE arterial US and CTA chest. both negative - IV antibiotics for possible sepsis - Dr Aguilar consulted for low platelet count. TTP being considered. - CTA abdomen done for mesenteric ischemia - no evidence. Thank you for your consultation. Please call me if you have any questions. Nima Cardona MD, FACP, FACC, FSCAI, FHRS, CCDS Interventional Cardiology Cardiac Electrophysiology Vascular Medicine and Endovascular Interventions Focused Exam Lactate Level 07/25/20 06:45: Lactic Acid Level 2.52*H 07/25/20 15:35: Lactic Acid Level 2.88*H 07/25/20 17:42: Lactic Acid Level 4.24*H Time of Focused Exam: 13:02 Lactic Acid Level Real CARDONA MD Jul 25, 2020 18:28
[2020-07-25 18:32] LABS: HEMOGLOBIN 10.2 g/dL (11.5-16.0)
--- NOTE | 2020-07-25 22:56 | NUR ---
1899 Report received from DAPHNEY Palm. Notified of patient being transferred tonight to . 1999 DAPHNEY Palm still present on floor, called report to nurseCollette. 2039 [facility] arrived to transport patient to . Patient stable with no complaints or concerns at this time. Patient transported with Heparin and LR running. Patient on 1.5L nasal cannula to maintain oxygen saturations above 93%.
--- NOTE | 2020-07-27 10:34 | Discharge Summary ---
Diagnosis/Chief Complaint Date of Admission Jul 23, 2020 at 13:10 Date of Discharge Jul 25, 2020 at 20:40 Admission Diagnosis Dyspnea Primary Care Virgil Londono MD Discharge Diagnosis (1) Pneumonia Status: Acute (2) Essential (primary) hypertension (3) Thrombocytopenia (4) Tobacco abuse (5) Person under investigation for severe acute respiratory syndrome coronavirus 2 (SARS-CoV-2) infection Status: Acute Discharge Summary Discharge Physical Exam Allergies: Coded Allergies: No Known Drug Allergies (Unverified , 09/21/16) Vitals & I&Os General Appearance: No Apparent Distress, WD/WN Respiratory: Lungs Clear, No Respiratory Distress Cardiovascular: Regular Rate, Rhythm, No Murmur Neurologic/Psychiatric: Alert, Oriented x3 Hospital Course Pt was admitted for chest pain and shortness of breath. She had a complicated stay. She was tested for COVID and was negative. Cardiology was consulted for evaluation as well for cardaic source. Troponins were trended and negative. She was incidentally found to be thrombocytopenic and hematology as consutled for assistance with DIC/TTP work up. She developed severe abdominal pain and had persistent lactic acidosis. CTA of her chest and abdomen were down to evaluate for PE and mesenteric ischemia, both of which were negative. Usg of her abdomen was ordered and negative for acute cholecystitis. Ultimately her symptoms were considered due to TTP as she had a PLASMIC score of 5. Dr Parikh spoke with hematology at [facility] and facilitated discharge for plasma exchange. She was transported in stable condition via EMS. Labs (last 24 hrs) Microbiology 07/23/20 Blood Culture - Final, Complete No growth 07/23/20 Urine Culture - Final, Complete >=3 Gram Positive Isolates 07/23/20 Influenza Types A,B Antigen (BAILEY) - Final, Complete Patient resulted labs reviewed. Imaging: Reviewed Imaging Report, Discussed Imaging with Radiologist Discussion & Recommendations Discharge Planning: >30 minutes discharge planning Discharge Home Medications: Active Scripts Active Reported Aleve (Naproxen Sodium) 220 Mg Tablet 220 Mg PO DAILY Alendronate Sodium 70 Mg/75 Ml Solution 70 Mg PO WEEKLY Amlodipine Besylate 5 Mg Tablet 5 Mg PO DAILY Lotensin 10 Mg (Benazepril HCl) 10 Mg Tablet 1 Each PO DAILY Fish Oil 1,000 Mg Cap 1,000 Mg PO BID Aspirin Ec 81 Mg (Aspirin) 81 Mg Tabec 81 Mg PO DAILY Instructions to patient/family Please see electronic discharge instructions given to patient. Clinical Quality Measures DVT/VTE Risk/Contraindication: Risk Factor Score Per Nursin RFS Level Per Nursing on Admit: 2=Moderate Copy Copies To 1: VIRGIL LONDONO MD Problem Qualifiers (1) Pneumonia: Pneumonia type: due to unspecified organism Laterality: unspecified laterality Lung location: unspecified part of lung Qualified Codes: J18.9 - Pneumonia, unspecified organism CHANTELLE GOLDBERG MD Jul 27, 2020 10:34
--- NOTE | 2020-07-27 11:00 | CONSULTATION REPORT ---
DATE OF SERVICE: 07/24/2020 ATTENDING PHYSICIAN: Dr. Nicole. SUMMARY: After reviewing the patient's records, interviewing her and examining her and her x-rays, this is a 75-year-old nice lady admitted with abdominal pain, mostly in the right upper quadrant and flank. Denies any symptoms. Denies any significant GI symptoms. Urinalysis shows pyuria, but no microscopic hematuria. She denies previous history of stones. She is tender on the right upper quadrant and flank. She had an ultrasound of the abdomen on the right side that was negative that was followed by a noncontrast CT scan of the abdomen and pelvis. I looked at it pending the radiologist reading. Later on, I reviewed it with him and there was no calcification on either side of the kidneys and no abnormalities in the kidneys, no stones and there is a fibroid and there is significant diverticular disease. IMPRESSION: Right abdominal pain. No stones, No pathology. PLAN: We will see her on a p.r.n. basis. Job ID: [id number] DocumentID: [id number] Dictated Date: 07/24/2020 13:55:30 Medical Radiation Therapist Date: 07/24/2020 14:16:15 Dictated By: PIERRE BRAVO MD
--- NOTE | 2020-07-27 11:26 | Physician Query Clarification ---
PQ-Uncertain Diagnosis Admission/Discharge Admission Date: Jul 23, 2020 at 13:10 Discharge Date: Jul 25, 2020 at 20:40 Dr. Nicole, The medical record reflects the following clinical scenario: History/Risk Factors: RUQ pain, Pneumonia, fever Clinical Findings: T 35.9, P 134, R 22, WBC 9.6 Treatment: IV Ceftriaxone, IV Azithromycin Question: Is Sepsis a clinically valid diagnosis? Sepsis was documented in the ER record with no further documentation in the medical record. Please document a response in Progress Note or Discharge Summary. 1. Yes, clinically valid, condition resolved. 2. No, condition ruled out. 3. Other, with explanation of clinical findings. 4. Undetermined, no explanation for clinical findings. PHYSICIAN RESPONSE Diagnosis clinically valid: No, conditon ruled out Please remember a lack of response to the above will prompt a phone page by CDI/Coding staff. In responding to this query, please exercise your independent professional j udgment. The purpose of this communication is to more accurately reflect the complexity of your patients condition. The fact that a question is asked does not imply that any particular answer is desired or expected. Thank you for your timely response to this clarification. Requestors name: Jose THIS PHYSICIAN QUERY FORM IS A PERMANENT PART OF THE MEDICAL RECORD JOSE ARRIAZA Jul 27, 2020 11:26 CHANTELLE NICOLE MD Jul 30, 2020 20:16
--- NOTE | 2020-07-27 11:35 | Physician Query Clarification ---
PQ-Uncertain Diagnosis Admission/Discharge Admission Date: Jul 23, 2020 at 13:10 Discharge Date: Jul 25, 2020 at 20:40 Dr. Nicole, The medical record reflects the following clinical scenario: History/Risk Factors: pneumonia, HTN, RUQ pain Clinical Findings: R 22, PH 7.34, PC02 30, Po2 71, Sat 94%, HC03 16 Treatment: nasal cannula 1 liter/m Question: Is acute respiratory failure with hypoxia a clinically valid diagnosis? acute respiratory failure with hypoxia was documented in the ER record with no further documentation in the medical record. Please document a response in Progress Note or Discharge Summary. 1. Yes, clinically valid, condition resolved. 2. No, condition ruled out. 3. Other, with explanation of clinical findings. 4. Undetermined, no explanation for clinical findings. PHYSICIAN RESPONSE Diagnosis clinically valid: Yes, Conditon resolved Please remember a lack of response to the above will prompt a phone page by CDI/Coding staff. In responding to this query, please exercise your independent professional judgment. The purpose of this communication is to more accurately reflect the complexity of your patients condition. The fact that a question is asked does not imply that any particular answer is desired or expected. Thank you for your timely response to this clarification. Requestors name: Jose THIS PHYSICIAN QUERY FORM IS A PERMANENT PART OF THE MEDICAL RECORD JOSE ARRIAZA Jul 27, 2020 11:34 CHANTELLE NICOLE MD Jul 30, 2020 20:16
--- NOTE | 2020-07-27 11:38 | Physician Query Clarification ---
PQ-Intro New Diagnosis Admission/Discharge Admission Date: Jul 23, 2020 at 13:10 Discharge Date: Jul 25, 2020 at 20:40 Dr. Cardona, The medical record reflects the following clinical scenario: History/Risk Factors: RUQ pain, Pneumonia, HTN Clinical Findings: Troponin 0.236 on 07/25 Treatment: Serial troponins, IV Heparin Question: What condition best reflects the above clinical scenario? Please document a response in the Progress Noter or Discharge Summary. 1. NSTEMI 2. elevated troponin, cause unknown 3. Other, with explanation of the clinical findings. 4. Clinically undetermined, no explanation for the clinical findings. PHYSICIAN RESPONSE What condition reflects above: 1 Please remember a lack of response to the above will prompt a phone page by CDI/Coding staff. In responding to this query, please exercise your independent professional judgment. The purpose of this communication is to more accurately reflect the complexity of your patients condition. The fact that a question is asked does not imply that any particular answer is desired or expected. Thank you for your timely response to this clarification. Requestors name: Jose THIS PHYSICIAN QUERY FORM IS A PERMANENT PART OF THE MEDICAL RECORD JOSE ARRIAZA Jul 27, 2020 11:38 Real CARDONA MD Aug 14, 2020 13:58
[2020-07-29 16:09] LABS: MISC LAB TEST & RESULT SEE FOOTNOTE
[2020-08-06] MEDS ORDERED: FOLI1TAB24 PO (10:04)
[2020-08-06] MEDS ORDERED: OMEP40CA27 PO (10:04)
[2020-08-06] MEDS ORDERED: OXYC5TAB PO (10:04)
[2020-08-06] MEDS ORDERED: BENA10TA66 PO (10:04)
== END 2020-07-25 20:40 | disposition short-term general hospital (02) | DRG 193 ==
LOC: EDUNIT# 10:07 → ER 10:09 → OBSVTOIN 13:10 → INTOOBSV 13:10 → 4TH 13:10 → CSD 07-25 13:28
PROVIDERS: ADMIT Family Medicine; ATTEND Family Medicine
DX: J18.9 Pneumonia, unspecified organism (principal); J96.01 Acute respiratory failure with hypoxia; I21.4 Non-ST elevation (NSTEMI) myocardial infarction; E87.2 Acidosis; I10 Essential (primary) hypertension; I27.20 Pulmonary hypertension, unspecified; D69.6 Thrombocytopenia, unspecified; R10.11 Right upper quadrant pain; F17.210 Nicotine dependence, cigarettes, uncomplicated; Z20.828 Contact with and (suspected) exposure to other viral communicable diseases; E78.5 Hyperlipidemia, unspecified; K21.9 Gastro-esophageal reflux disease without esophagitis
CPT/HCPCS: 36415; 71045; 71275; 74018; 74174; 74176; 76705; 80053; 80061; 80074; 81000; 82805; 83605; 83615; 83690; 83880; 84145; 84484; 85007; 85014; 85018; 85025; 85027; 85045; 85049; 85055; 85379; 85384; 85610; 85730; 86141; 86738; 86769; 87040; 87088; 87449; 87635; 87804; 93005; 93306; 93970; 94640; 94760; 96361; 96374; 96375

== ENCOUNTER 2020-08-10 05:35 | Outpatient (RCR) | payer MEDICARE, OTHER ==
[~2020-08-10] VITALS: Ht 170 cm; Wt 79.5 kg
[~2020-08-10 05:35] MED LIST changes: +BENA10TA66 PO; +FOLI1TAB24 PO; +OMEP40CA27 PO; +OXYC5TAB PO
== END 2020-08-10 09:39 | disposition home or self-care (01) ==
LOC: PREOP 05:35
PROVIDERS: ATTEND Surgery
DX: Z01.818 Encounter for other preprocedural examination (principal); C50.919 Malignant neoplasm of unspecified site of unspecified female breast; Z20.828 Contact with and (suspected) exposure to other viral communicable diseases
CPT/HCPCS: 87635

== ENCOUNTER 2020-08-11 10:45 | Day surgery (SDC) | payer MEDICARE, OTHER ==
[2020-08-11] VITALS (8 sets, daily range): BP systolic 92–126; BP diastolic 54–71
[~2020-08-11] VITALS: Ht 170 cm; Wt 79.5 kg
[2020-08-11 11:28] LABS: HEMATOCRIT 27 % (35-52); HEMOGLOBIN 8.9 g/dL (11.5-16.0); MEAN CORPUSCULAR HGB CONC 34 g/dL (32-36)
[2020-08-11 11:30] LABS: MEAN CORPUSCULAR HEMOGLOBIN 34 pg (25-34); MEAN CORPUSCULAR VOLUME 101 fL (80-99); PLATELET COUNT 59 10^3/uL (130-400); WHITE BLOOD COUNT 7.4 10^3/uL (4.3-11.0)
[2020-08-11] MEDS ORDERED: LACTATED RINGERS 1,000 ML IV PRN (11:30)
[2020-08-11] MEDS ORDERED: NS IV 500 ML 500 ML IV SCH (11:45)
[2020-08-11] MEDS ORDERED: ceFAZolin 2 GM IV Premixed 50 ML IV ONE (11:45)
--- NOTE | 2020-08-11 12:05 | NUR ---
THIS RN PHONED DR. GASTELUM AND REPORTED CBC RESULTS. GAVE TELEPHONE ORDER NOT TO GIVE PRBC'S. THIS RN WILL CONTINUE TO MONITOR PATIENT.
[2020-08-11] MEDS ORDERED: HEParin (CENTRAL IV FLUSH) 500 UNIT/5 ML SYR ONE (12:50)
[2020-08-11] MEDS ORDERED: 0.9% SODIUM CHLORIDE PF INJ 20 ML VIAL ONE (12:50)
[2020-08-11] MEDS ORDERED: LIDOCAINE/EPI 1%-1:100,000 (XYLOCAINE) 50 ML ONE (12:50)
[2020-08-11] MEDS ORDERED: PROPOFOL INJECTION 50 ML IV ONE (13:02)
--- NOTE | 2020-08-11 13:41 | Progress Note-Pre Operative ---
Pre-Operative Progress Note H&P Reviewed The H&P was reviewed, patient examined and no changes noted. Date Seen by Provider: Aug 11, 2020 Time Seen by Provider: 13:41 Date H&P Reviewed: Aug 11, 2020 Time H&P Reviewed: 13:41 Pre-Operative Diagnosis: metastatic breast cancer FARIDA GASTELUM DO Aug 11, 2020 13:41
--- NOTE | 2020-08-11 14:30 | Progress Note-Post Operative ---
Post-Operative Progess Note Surgeon (s)/Laboratory Tech (s) Surgeon FARIDA GASTELUM DO Laboratory Tech: na Pre-Operative Diagnosis metastatic breast cancer Post-Operative Diagnosis same Procedure & Operative Findings Date of Procedure 08/11/20 Procedure Performed/Findings PROCEDURE: Right internal jugular port placement using ultrasound guidance. COMPLICATIONS: None. INDICATIONS: The patient is a 75 year old female with metastatic breast cancer. Patient understands the risks and benefits of port placement and wished to proceed with the procedure. Consent was signed on the chart. PROCEDURE: The patient was taken to the operating suite, was prepped and draped in the sterile fashion. A surgical pause was performed. Ultrasound was used to locate the internal jugular vein. Once located anesthetic was infiltrated above it. Using micro-access kit, the right internal vein was accessed. Dark nonpulsatile blood was withdrawn. The wire was inserted. Fluoroscopy assured proper placement. The needle was removed. The micro-access dilator was advanced over the wire and the wire was removed. The regular wire was inserted and fluoroscopy assured proper placement. The wire was then secured. Local anesthetic was used to anesthetize from the neck for tunneling down to the right chest and for pocket creation. An 11 blade scalpel was used to make an incision over the right chest. Cautery was used to dissect down to the pectoral fascia. A pocket was created with blunt dissection. The dilator sheath was then advanced over the wire under fluoroscopy and the dilator and wire were removed. The Groshong catheter was inserted through the sheath and the sheath was then removed. The Groshong wire was removed. The catheter was then tunneled to the right chest pocket. Fluoroscopy was used to cut to length and this was then attached to the port which was then placed within the pocket. The port was then accessed without difficulty. It was then flushed with saline and then heparin. The subcutaneous tissues were then reapproximated using 3-0 Vicryl. The areas were then washed and dried. Skin Affix was placed over incision. The insertion point of the neck Skin Affix was placed over the incision. The patient tolerated the procedure well without complication and was taken to recovery room in stable condition. Chest x-ray is pending. Anesthesia Type mac c local Estimated Blood Loss Estimated blood loss (mL): minimal Specimens/Packing Specimens Removed FARIDA Cabrera DO Aug 11, 2020 14:30
--- NOTE | 2020-08-11 14:31 | Discharge Inst-Simple/Standard ---
Discharge Inst-Standard Patient Instructions/Follow Up Plan of Care/Instructions/FU: 2 weeks Divine Activity as Tolerated: No Discharge Diet: Regular Diet FARIDA GASTELUM DO Aug 11, 2020 14:31
--- NOTE | 2020-08-11 14:34 | Discharge Inst-Simple/Standard ---
Discharge Inst-Standard Patient Instructions/Follow Up Plan of Care/Instructions/FU: 2 weeks Divine Activity as Tolerated: No Discharge Diet: Regular Diet Other Inst to Patient Follow up Appt: Make appointment for 2 week. Instructions: No lifting greater than 10 pounds. No strenuous activity. May shower in 24 hours, no tub bath or soaking. Use incentive spirometer at home as directed. No Smoking Skin/Wound Care: You have special glue over your incision that will fall off on it's own. Place ice pack on 15 min and remove for 30 min and repeat while awake for first 48 hours. This helps reduce swelling and discomfort. Symptoms to Report: Appetite Changes, Extremity Discoloration, Numbness/Tingling, Swelling Increased, Bleeding Excessive, Eyesight Changes, Pain Increased, Urine Color Change, Constipation(Persistent), Fever over 101 degree F, Pain/Pressure in chest, Urinating Difficulty, Cough Up/Vomit Blood, Heart Beat Irreg/Pounding, Pain/Pressure in jaw, Vaginal Bleeding Increase, Cramps in feet or legs, Lightheadedness, Pain/Pressure in shoulder, Diarrhea(Persistent), Memory Changes Suddenly, Questions/Concerns, Weight gain consecutive days, Dizziness/Fainting, Nausea/Vomiting, Shortness of Breath, Weight gain over 2 pounds If questions or concerns contact your physician Or seek help at emergency department. FARIDA GASTELUM DO Aug 11, 2020 14:34
--- NOTE | 2020-08-11 14:56 | Anesthesia-General Post-Op ---
MAC Patient Condition Mental Status/LOC: Same as Preop Cardiovascular: Satisfactory Nausea/Vomiting: Absent Respiratory: Satisfactory Pain: Controlled Complications: Absent Post Op Complications Complications None Follow Up Care/Instructions Patient Instructions None needed. Anesthesiology Discharge Order Discharge Order Patient is doing well, no complaints, stable vital signs, no apparent adverse anesthesia problems. No complications reported per nursing. DIRK CHAPARRO CRNA Aug 11, 2020 14:56
--- NOTE | 2020-08-11 15:05 | Diagnostic Imaging Report ---
INDICATION: Postop Port-A-Cath placement. TECHNIQUE: Frontal chest obtained at 02:57 p.m. and compared to 07/24/2020. FINDINGS: Heart is borderline in size. There are chronic central vascular congestive changes with chronic interstitial prominence. There is no new infiltrate or pneumothorax or pleural fluid. There is a Port-A-Cath over the right chest with catheter entering into the right internal jugular vein with catheter tip overlying the mid SVC. IMPRESSION: Mild central vascular congestion and borderline heart size with chronic-appearing increased interstitial markings. No pneumothorax or pleural fluid. New Port-A-Cath in place, as above. Dictated by: Dictated on workstation # [id number]
--- NOTE | 2020-08-11 15:39 | Diagnostic Imaging Report ---
INDICATION: Port-A-Cath placement. TECHNIQUE: Intraoperative fluoroscopy views were obtained with the portable intensifier in Surgery. 28 seconds of fluoroscopy time was used. Two images were obtained. FINDINGS: A Port-A-Cath is visualized over the right chest wall with the catheter entering the right internal jugular vein and the catheter tip overlying the low SVC. The study is otherwise limited. IMPRESSION: Intraoperative views demonstrate Port-A-Cath placement as above. Dictated by: Dictated on workstation # [id number]
== END 2020-08-11 15:40 | disposition home or self-care (01) ==
LOC: SDC 10:45
PROVIDERS: ATTEND Surgery
DX: C79.81 Secondary malignant neoplasm of breast (principal); I10 Essential (primary) hypertension; K21.9 Gastro-esophageal reflux disease without esophagitis; I87.2 Venous insufficiency (chronic) (peripheral); C79.51 Secondary malignant neoplasm of bone; Z79.899 Other long term (current) drug therapy; Z79.82 Long term (current) use of aspirin; Z79.02 Long term (current) use of antithrombotics/antiplatelets; Z87.891 Personal history of nicotine dependence; Z80.1 Family history of malignant neoplasm of trachea, bronchus and lung
CPT/HCPCS: 36561; 71045; 76000; 85027; 86850; 86900; 86901; 86920; 87081; C1788; 36415

== ENCOUNTER → 2020-11-03 | Outpatient (CLI) | payer MEDICARE, OTHER ==
[~2020-11-03] MED LIST changes: -FOLI1TAB24 PO; +FOLI1TAB33 PO
--- NOTE | 2020-11-03 16:24 | Diagnostic Imaging Report ---
EXAMINATION: PET/CT. INDICATION: Left breast carcinoma. EXAMINATION: After intravenous administration of 11.94 mCi of F18-FDG injected into the right forearm a series of overlapping emission and transmission PET images was obtained. In the coronal, transaxial and sagittal planes, the area imaged extended from the skull base through the upper thighs. The patient's weight is 176 pounds and the patient's height is 5' 7". The blood glucose level is 94. 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 There was also diffuse heterogeneous and nodular marrow hypermetabolism throughout the axial and appendicular skeleton. On this exam the appearance of the PET/CT exam has improved as the peritoneal carcinomatosis noted on the prior exam has essentially resolved. There is no hypermetabolic activity seen to suggest the presence of malignancy within the abdomen or pelvis. The perilymphatic carcinomatosis seen previously is also less conspicuous. There continues to be diffuse intense uptake throughout the visualized osseous structures. This finding may represent a response to therapy as opposed to widespread metastatic skeletal disease. The prior exam also noted a small hypermetabolic focus within the left breast. This was subsequently excised and proven to be malignant. On this exam there is only a small area of increased density in this region with a maximum SUV of less than 1. The CT images failed to show any sign of an acute abnormality. The atelectasis/infiltrate and fluid involving the lung bases seen on the prior study has essentially resolved. IMPRESSION: 1. 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 2. The hypermetabolic mass in the left breast has been removed. There is scar formation in the biopsy site but there is no hypermetabolic activity in this area to suggest recurrent neoplastic disease. 3. There continues to be diffuse increased activity throughout the visualized osseous structures. This finding may well be secondary to a response to therapy as opposed to diffuse metastatic disease. 4. The appearance of the chest has improved as the atelectasis/infiltrate and fluid involving both lung bases has essentially resolved. 5. These results were discussed with Dr. Parikh. Dictated by: Dictated on workstation # [id number]
== END ==
LOC: RAD 08:51
PROVIDERS: ATTEND Internal Medicine Hematology & Oncology
DX: C50.412 Malignant neoplasm of upper-outer quadrant of left female breast (principal)
CPT/HCPCS: 78815; A9552

== ENCOUNTER 2020-11-05 08:58 | Outpatient (RCR) | payer MEDICARE, OTHER ==
[2020-08-12 13:11] LABS: MEAN CORPUSCULAR VOLUME 104 fL (80-99)
[2020-08-12 13:13] LABS: BASOPHILS % (AUTO) 1 % (0-10); EOSINOPHILS # (AUTO) 0.1 10^3/uL (0.0-0.3); EOSINOPHILS % (AUTO) 1 % (0-10); HEMATOCRIT 28 % (35-52); HEMOGLOBIN 9.2 g/dL (11.5-16.0); LYMPHOCYTES # (AUTO) 2.3 10^3/uL (1.0-4.0); LYMPHOCYTES % (AUTO) 31 % (12-44); MEAN CORPUSCULAR HEMOGLOBIN 34 pg (25-34); MEAN CORPUSCULAR HGB CONC 33 g/dL (32-36); MONOCYTES # (AUTO) 0.3 10^3/uL (0.0-1.0); MONOCYTES % (AUTO) 4 % (0-12); NEUTROPHILS # (AUTO) 4.7 10^3/uL (1.8-7.8); NEUTROPHILS % (AUTO) 62 % (42-75); PLATELET COUNT 56 10^3/uL (130-400); WHITE BLOOD COUNT 7.5 10^3/uL (4.3-11.0)
[2020-08-12 13:35] LABS: ALBUMIN 4.3 GM/DL (3.2-4.5); BILIRUBIN,TOTAL 1.5 MG/DL (0.1-1.0); CALCIUM 9.9 MG/DL (8.5-10.1); CREATININE SERUM 1.12 MG/DL (0.60-1.30); POTASSIUM 4.1 MMOL/L (3.6-5.0); TOTAL PROTEIN 7.6 GM/DL (6.4-8.2)
[2020-08-20 09:17] LABS: BASOPHILS # (AUTO) 0.1 10^3/uL (0.0-0.1); BASOPHILS % (AUTO) 1 % (0-10); EOSINOPHILS % (AUTO) 1 % (0-10); LYMPHOCYTES # (AUTO) 2.7 10^3/uL (1.0-4.0); LYMPHOCYTES % (AUTO) 39 % (12-44); MEAN CORPUSCULAR HEMOGLOBIN 33 pg (25-34); MEAN CORPUSCULAR HGB CONC 33 g/dL (32-36); MEAN CORPUSCULAR VOLUME 102 fL (80-99); MONOCYTES # (AUTO) 0.3 10^3/uL (0.0-1.0); MONOCYTES % (AUTO) 4 % (0-12); NEUTROPHILS # (AUTO) 3.6 10^3/uL (1.8-7.8); NEUTROPHILS % (AUTO) 52 % (42-75); PLATELET COUNT 80 10^3/uL (130-400); WHITE BLOOD COUNT 6.9 10^3/uL (4.3-11.0)
[2020-08-20 09:19] LABS: HEMATOCRIT 19 % (35-52); HEMOGLOBIN 6.2 g/dL (11.5-16.0)
[2020-08-20 09:30] LABS: CALCIUM 10.6 MG/DL (8.5-10.1); CREATININE SERUM 1.2 MG/DL (0.60-1.30); POTASSIUM 4.7 MMOL/L (3.6-5.0)
[2020-08-27 09:23] LABS: BASOPHILS % (AUTO) 1 % (0-10); EOSINOPHILS # (AUTO) 0.1 10^3/uL (0.0-0.3); EOSINOPHILS % (AUTO) 2 % (0-10); LYMPHOCYTES # (AUTO) 2.5 10^3/uL (1.0-4.0); LYMPHOCYTES % (AUTO) 46 % (12-44); MEAN CORPUSCULAR HEMOGLOBIN 32 pg (25-34); MEAN CORPUSCULAR HGB CONC 33 g/dL (32-36); MEAN CORPUSCULAR VOLUME 98 fL (80-99); MEAN PLATELET VOLUME 12.4 fL (9.0-12.2); MONOCYTES # (AUTO) 0.3 10^3/uL (0.0-1.0); MONOCYTES % (AUTO) 6 % (0-12); NEUTROPHILS # (AUTO) 2.4 10^3/uL (1.8-7.8); NEUTROPHILS % (AUTO) 44 % (42-75); PLATELET COUNT 171 10^3/uL (130-400); WHITE BLOOD COUNT 5.5 10^3/uL (4.3-11.0)
[2020-08-27 09:28] LABS: HEMATOCRIT 18 % (35-52)
[2020-08-27 09:40] LABS: CALCIUM 10.2 MG/DL (8.5-10.1); CREATININE SERUM 1.68 MG/DL (0.60-1.30); POTASSIUM 4.7 MMOL/L (3.6-5.0)
[2020-09-03 10:39] LABS: BASOPHILS % (AUTO) 1 % (0-10); EOSINOPHILS # (AUTO) 0.1 10^3/uL (0.0-0.3); EOSINOPHILS % (AUTO) 3 % (0-10); HEMATOCRIT 21 % (35-52); HEMOGLOBIN 7.1 g/dL (11.5-16.0); LYMPHOCYTES % (AUTO) 53 % (12-44); MEAN CORPUSCULAR HEMOGLOBIN 32 pg (25-34); MEAN CORPUSCULAR HGB CONC 34 g/dL (32-36); MEAN CORPUSCULAR VOLUME 96 fL (80-99); MONOCYTES # (AUTO) 0.2 10^3/uL (0.0-1.0); MONOCYTES % (AUTO) 6 % (0-12); NEUTROPHILS # (AUTO) 1.4 10^3/uL (1.8-7.8); NEUTROPHILS % (AUTO) 35 % (42-75); PLATELET COUNT 202 10^3/uL (130-400); WHITE BLOOD COUNT 3.9 10^3/uL (4.3-11.0)
[2020-09-03 11:00] LABS: CALCIUM 10.1 MG/DL (8.5-10.1); CREATININE SERUM 1.28 MG/DL (0.60-1.30); POTASSIUM 4.2 MMOL/L (3.6-5.0)
[2020-09-10 09:13] LABS: BASOPHILS % (AUTO) 1 % (0-10); EOSINOPHILS # (AUTO) 0.2 10^3/uL (0.0-0.3); EOSINOPHILS % (AUTO) 3 % (0-10); HEMATOCRIT 24 % (35-52); HEMOGLOBIN 7.8 g/dL (11.5-16.0); LYMPHOCYTES # (AUTO) 2.3 10^3/uL (1.0-4.0); LYMPHOCYTES % (AUTO) 43 % (12-44); MEAN CORPUSCULAR HEMOGLOBIN 33 pg (25-34); MEAN CORPUSCULAR HGB CONC 32 g/dL (32-36); MEAN CORPUSCULAR VOLUME 103 fL (80-99); MEAN PLATELET VOLUME 11.6 fL (9.0-12.2); MONOCYTES # (AUTO) 0.5 10^3/uL (0.0-1.0); MONOCYTES % (AUTO) 9 % (0-12); NEUTROPHILS # (AUTO) 2.3 10^3/uL (1.8-7.8); NEUTROPHILS % (AUTO) 43 % (42-75); PLATELET COUNT 252 10^3/uL (130-400); WHITE BLOOD COUNT 5.3 10^3/uL (4.3-11.0)
[2020-09-10 09:43] LABS: ALBUMIN 4.1 GM/DL (3.2-4.5); BILIRUBIN,TOTAL 0.6 MG/DL (0.1-1.0); CREATININE SERUM 1.16 MG/DL (0.60-1.30); POTASSIUM 4.2 MMOL/L (3.6-5.0); TOTAL PROTEIN 6.6 GM/DL (6.4-8.2)
[2020-09-17 10:11] LABS: BASOPHILS # (AUTO) 0.1 10^3/uL (0.0-0.1); BASOPHILS % (AUTO) 1 % (0-10); EOSINOPHILS # (AUTO) 0.1 10^3/uL (0.0-0.3); EOSINOPHILS % (AUTO) 2 % (0-10); HEMATOCRIT 25 % (35-52); HEMOGLOBIN 8.2 g/dL (11.5-16.0); LYMPHOCYTES # (AUTO) 2.8 10^3/uL (1.0-4.0); LYMPHOCYTES % (AUTO) 44 % (12-44); MEAN CORPUSCULAR HEMOGLOBIN 34 pg (25-34); MEAN CORPUSCULAR HGB CONC 33 g/dL (32-36); MEAN CORPUSCULAR VOLUME 103 fL (80-99); MEAN PLATELET VOLUME 10.6 fL (9.0-12.2); MONOCYTES # (AUTO) 0.3 10^3/uL (0.0-1.0); MONOCYTES % (AUTO) 5 % (0-12); NEUTROPHILS # (AUTO) 2.9 10^3/uL (1.8-7.8); NEUTROPHILS % (AUTO) 46 % (42-75); PLATELET COUNT 226 10^3/uL (130-400); WHITE BLOOD COUNT 6.3 10^3/uL (4.3-11.0)
[2020-09-17 10:26] LABS: CALCIUM 10.7 MG/DL (8.5-10.1); CREATININE SERUM 1.14 MG/DL (0.60-1.30); POTASSIUM 4.4 MMOL/L (3.6-5.0)
[2020-09-24 09:08] LABS: BASOPHILS % (AUTO) 1 % (0-10); EOSINOPHILS # (AUTO) 0.1 10^3/uL (0.0-0.3); EOSINOPHILS % (AUTO) 2 % (0-10); HEMATOCRIT 25 % (35-52); LYMPHOCYTES # (AUTO) 2.2 10^3/uL (1.0-4.0); LYMPHOCYTES % (AUTO) 47 % (12-44); MEAN CORPUSCULAR HEMOGLOBIN 34 pg (25-34); MEAN CORPUSCULAR HGB CONC 32 g/dL (32-36); MEAN CORPUSCULAR VOLUME 107 fL (80-99); MEAN PLATELET VOLUME 11.7 fL (9.0-12.2); MONOCYTES # (AUTO) 0.4 10^3/uL (0.0-1.0); MONOCYTES % (AUTO) 8 % (0-12); NEUTROPHILS # (AUTO) 1.9 10^3/uL (1.8-7.8); NEUTROPHILS % (AUTO) 40 % (42-75); PLATELET COUNT 246 10^3/uL (130-400); WHITE BLOOD COUNT 4.7 10^3/uL (4.3-11.0)
[2020-09-24 09:23] LABS: CREATININE SERUM 1.07 MG/DL (0.60-1.30); POTASSIUM 4.8 MMOL/L (3.6-5.0)
[2020-10-01 10:49] LABS: BASOPHILS % (AUTO) 1 % (0-10); EOSINOPHILS % (AUTO) 1 % (0-10); HEMATOCRIT 27 % (35-52); LYMPHOCYTES # (AUTO) 1.8 10^3/uL (1.0-4.0); LYMPHOCYTES % (AUTO) 40 % (12-44); MEAN CORPUSCULAR HEMOGLOBIN 36 pg (25-34); MEAN CORPUSCULAR HGB CONC 33 g/dL (32-36); MEAN CORPUSCULAR VOLUME 108 fL (80-99); MEAN PLATELET VOLUME 11.4 fL (9.0-12.2); MONOCYTES # (AUTO) 0.2 10^3/uL (0.0-1.0); MONOCYTES % (AUTO) 5 % (0-12); NEUTROPHILS # (AUTO) 2.3 10^3/uL (1.8-7.8); NEUTROPHILS % (AUTO) 53 % (42-75); PLATELET COUNT 263 10^3/uL (130-400); WHITE BLOOD COUNT 4.4 10^3/uL (4.3-11.0)
--- NOTE | 2020-10-01 11:05 | Diagnostic Imaging Report ---
INDICATION: Shortness of breath PA and lateral chest Right IJ Port-A-Cath tip projects over the SVC. Heart size and pulmonary vascularity are normal. Lungs are clear. There are no effusions or pneumothoraces. IMPRESSION: No acute abnormalities in the chest. Dictated by: Dictated on workstation # [id number]
[2020-10-01 11:08] LABS: CALCIUM 9.6 MG/DL (8.5-10.1); CREATININE SERUM 1.14 MG/DL (0.60-1.30); POTASSIUM 4.2 MMOL/L (3.6-5.0)
[2020-10-08 09:20] LABS: BASOPHILS # (AUTO) 0.1 10^3/uL (0.0-0.1); BASOPHILS % (AUTO) 1 % (0-10); EOSINOPHILS # (AUTO) 0.2 10^3/uL (0.0-0.3); EOSINOPHILS % (AUTO) 3 % (0-10); HEMATOCRIT 28 % (35-52); HEMOGLOBIN 8.7 g/dL (11.5-16.0); LYMPHOCYTES # (AUTO) 2.1 10^3/uL (1.0-4.0); LYMPHOCYTES % (AUTO) 43 % (12-44); MEAN CORPUSCULAR HEMOGLOBIN 35 pg (25-34); MEAN CORPUSCULAR HGB CONC 32 g/dL (32-36); MEAN CORPUSCULAR VOLUME 111 fL (80-99); MEAN PLATELET VOLUME 9.8 fL (9.0-12.2); MONOCYTES # (AUTO) 0.6 10^3/uL (0.0-1.0); MONOCYTES % (AUTO) 12 % (0-12); NEUTROPHILS # (AUTO) 1.9 10^3/uL (1.8-7.8); NEUTROPHILS % (AUTO) 40 % (42-75); PLATELET COUNT 263 10^3/uL (130-400); WHITE BLOOD COUNT 4.9 10^3/uL (4.3-11.0)
[2020-10-08 09:42] LABS: ALBUMIN 4.2 GM/DL (3.2-4.5); BILIRUBIN,TOTAL 0.3 MG/DL (0.1-1.0); CALCIUM 9.5 MG/DL (8.5-10.1); CREATININE SERUM 1.04 MG/DL (0.60-1.30); POTASSIUM 4.9 MMOL/L (3.6-5.0); TOTAL PROTEIN 6.8 GM/DL (6.4-8.2)
[2020-10-15 09:18] LABS: BASOPHILS # (AUTO) 0.1 10^3/uL (0.0-0.1); BASOPHILS % (AUTO) 1 % (0-10); EOSINOPHILS # (AUTO) 0.2 10^3/uL (0.0-0.3); EOSINOPHILS % (AUTO) 3 % (0-10); HEMATOCRIT 28 % (35-52); HEMOGLOBIN 9.3 g/dL (11.5-16.0); LYMPHOCYTES # (AUTO) 2.3 10^3/uL (1.0-4.0); LYMPHOCYTES % (AUTO) 37 % (12-44); MEAN CORPUSCULAR HEMOGLOBIN 35 pg (25-34); MEAN CORPUSCULAR HGB CONC 33 g/dL (32-36); MEAN CORPUSCULAR VOLUME 108 fL (80-99); MEAN PLATELET VOLUME 10.2 fL (9.0-12.2); MONOCYTES # (AUTO) 0.4 10^3/uL (0.0-1.0); MONOCYTES % (AUTO) 6 % (0-12); NEUTROPHILS # (AUTO) 3.2 10^3/uL (1.8-7.8); NEUTROPHILS % (AUTO) 51 % (42-75); PLATELET COUNT 252 10^3/uL (130-400); WHITE BLOOD COUNT 6.3 10^3/uL (4.3-11.0)
[2020-10-15 09:36] LABS: CALCIUM 9.8 MG/DL (8.5-10.1); CREATININE SERUM 0.99 MG/DL (0.60-1.30); POTASSIUM 4.3 MMOL/L (3.6-5.0)
[2020-10-22 09:08] LABS: BASOPHILS % (AUTO) 1 % (0-10); EOSINOPHILS # (AUTO) 0.1 10^3/uL (0.0-0.3); EOSINOPHILS % (AUTO) 1 % (0-10); HEMATOCRIT 28 % (35-52); HEMOGLOBIN 9.1 g/dL (11.5-16.0); LYMPHOCYTES # (AUTO) 1.7 10^3/uL (1.0-4.0); LYMPHOCYTES % (AUTO) 40 % (12-44); MEAN CORPUSCULAR HEMOGLOBIN 36 pg (25-34); MEAN CORPUSCULAR HGB CONC 33 g/dL (32-36); MEAN CORPUSCULAR VOLUME 109 fL (80-99); MEAN PLATELET VOLUME 10.4 fL (9.0-12.2); MONOCYTES # (AUTO) 0.3 10^3/uL (0.0-1.0); MONOCYTES % (AUTO) 8 % (0-12); NEUTROPHILS % (AUTO) 49 % (42-75); PLATELET COUNT 230 10^3/uL (130-400); WHITE BLOOD COUNT 4.1 10^3/uL (4.3-11.0)
[2020-10-22 09:28] LABS: CALCIUM 9.3 MG/DL (8.5-10.1); CREATININE SERUM 1.03 MG/DL (0.60-1.30); POTASSIUM 4.5 MMOL/L (3.6-5.0)
[2020-10-29 10:17] LABS: BASOPHILS % (AUTO) 1 % (0-10); EOSINOPHILS % (AUTO) 1 % (0-10); HEMATOCRIT 29 % (35-52); HEMOGLOBIN 9.6 g/dL (11.5-16.0); LYMPHOCYTES # (AUTO) 1.5 10^3/uL (1.0-4.0); LYMPHOCYTES % (AUTO) 42 % (12-44); MEAN CORPUSCULAR HEMOGLOBIN 36 pg (25-34); MEAN CORPUSCULAR HGB CONC 33 g/dL (32-36); MEAN CORPUSCULAR VOLUME 109 fL (80-99); MEAN PLATELET VOLUME 10.8 fL (9.0-12.2); MONOCYTES # (AUTO) 0.2 10^3/uL (0.0-1.0); MONOCYTES % (AUTO) 6 % (0-12); NEUTROPHILS # (AUTO) 1.8 10^3/uL (1.8-7.8); NEUTROPHILS % (AUTO) 50 % (42-75); PLATELET COUNT 259 10^3/uL (130-400); WHITE BLOOD COUNT 3.6 10^3/uL (4.3-11.0)
[2020-10-29 10:35] LABS: BUN/CREATININE RATIO 18; CALCIUM 9.3 MG/DL (8.5-10.1); CARBON DIOXIDE 20 MMOL/L (21-32); CHLORIDE 104 MMOL/L (98-107); GFR ESTIMATED > 60; GLUCOSE 112 MG/DL (70-105); POTASSIUM 4.2 MMOL/L (3.6-5.0); SODIUM 136 MMOL/L (135-145)
[2020-11-03 08:51] LABS: BASOPHILS # (AUTO) 0.1 10^3/uL (0.0-0.1); BASOPHILS % (AUTO) 2 % (0-10); EOSINOPHILS % (AUTO) 1 % (0-10); HEMATOCRIT 30 % (35-52); LYMPHOCYTES # (AUTO) 2.4 10^3/uL (1.0-4.0); LYMPHOCYTES % (AUTO) 52 % (12-44); MEAN CORPUSCULAR HEMOGLOBIN 36 pg (25-34); MEAN CORPUSCULAR HGB CONC 34 g/dL (32-36); MEAN CORPUSCULAR VOLUME 107 fL (80-99); MEAN PLATELET VOLUME 10.4 fL (9.0-12.2); MONOCYTES # (AUTO) 0.5 10^3/uL (0.0-1.0); MONOCYTES % (AUTO) 10 % (0-12); NEUTROPHILS # (AUTO) 1.6 10^3/uL (1.8-7.8); NEUTROPHILS % (AUTO) 35 % (42-75); PLATELET COUNT 275 10^3/uL (130-400); WHITE BLOOD COUNT 4.6 10^3/uL (4.3-11.0)
[2020-11-03 09:07] LABS: ALBUMIN 4.3 GM/DL (3.2-4.5); BILIRUBIN,TOTAL 0.5 MG/DL (0.1-1.0); CALCIUM 9.5 MG/DL (8.5-10.1); CREATININE SERUM 1.11 MG/DL (0.60-1.30); POTASSIUM 4.7 MMOL/L (3.6-5.0); TOTAL PROTEIN 7.1 GM/DL (6.4-8.2)
[~2020-11-05] VITALS: Ht 170.2 cm; Wt 77.1 kg
[~2020-11-05 08:58] MED LIST changes: +NS IV 1000 ML (CANCER CTR) IV SCH; +PACLitaxel PROTEIN 170 MG in EMPTY IV BAG (PVC) CANCER CTR 1 EA IV SCH; +ZOLEDRONIC ACID (CANCER CTR) 3 MG in NS (IVPB) CANCER CENTER 100 ML IV SCH
== END 2020-11-10 | disposition home or self-care (01) ==
LOC: ONC 08:58
PROVIDERS: ATTEND Internal Medicine Hematology & Oncology
DX: N63.21 Unspecified lump in the left breast, upper outer quadrant (principal); C79.51 Secondary malignant neoplasm of bone; C78.6 Secondary malignant neoplasm of retroperitoneum and peritoneum; G89.3 Neoplasm related pain (acute) (chronic)
CPT/HCPCS: 80053; 85025; 86300; G0463; 36415; 36430; 36591; 71046; 80048; 82306; 86850; 86900; 86901; 86920; 96367; 96375; 96413; 99213

== ENCOUNTER → 2020-12-31 | Outpatient (CLI) | payer MEDICARE, OTHER ==
[~2020-12-31] MED LIST changes: -NS IV 1000 ML (CANCER CTR) IV SCH; -PACLitaxel PROTEIN 170 MG in EMPTY IV BAG (PVC) CANCER CTR 1 EA IV SCH; -ZOLEDRONIC ACID (CANCER CTR) 3 MG in NS (IVPB) CANCER CENTER 100 ML IV SCH
--- NOTE | 2020-12-31 10:55 | Diagnostic Imaging Report ---
PROCEDURE: US Venous Lower Ext Neto. TECHNIQUE: Multiple real-time grayscale images were obtained over the lower extremities in various projections, bilaterally. Additional duplex Doppler and color Doppler images were also obtained. INDICATION: Bilateral lower extremity swelling. There is no evidence of right or left lower extremity DVT. Both lower extremity deep venous systems show normal compressibility with normal response to augmentation and Valsalva. No fluid collection or mass is detected. IMPRESSION: No evidence of right or left lower extremity DVT. Dictated by: Dictated on workstation # [id number]
== END ==
LOC: RAD 10:00
PROVIDERS: ATTEND Internal Medicine Hematology & Oncology
DX: M79.89 Other specified soft tissue disorders (principal)
CPT/HCPCS: 93970

== ENCOUNTER → 2021-01-18 | Outpatient (CLI) | payer MEDICARE, OTHER | LOC: CARD 09:46 | PROVIDERS: ATTEND Internal Medicine Hematology & Oncology | DX: C50.412 Malignant neoplasm of upper-outer quadrant of left female breast (principal); I51.7 Cardiomegaly; I35.8 Other nonrheumatic aortic valve disorders | CPT/HCPCS: 93306 ==

== ENCOUNTER → 2021-01-26 | Outpatient (CLI) | payer MEDICARE, OTHER ==
[~2021-01-26] MED LIST changes: -OMEP40CA27 PO; +OMEP40CA6 PO
--- NOTE | 2021-01-26 15:24 | Diagnostic Imaging Report ---
INDICATION: Left breast carcinoma with subsequent treatment strategy and restaging with evaluation of treatment response. Serum blood glucose level at the time of injection was 106 mg/dL. Patient was administered 14.4 mCi F-18 FDG intravenously in the right hand and PET imaging was performed from the top of the skull to mid thighs. Noncontrast CT was also performed for attenuation correction and anatomic correlation. Correlation is made with prior PET/CT study from 11/03/2020. There is symmetric activity throughout the brain. Soft tissues of the neck are unremarkable. No definite hypermetabolic lymphadenopathy in the mediastinum or rebecca is seen. No definite pulmonary parenchymal hypermetabolism is identified. Patient has developed some airspace or ground glass infiltrates in the left upper lobe since the prior exam. This could conceivably represent some fibrosis from treatment. Physiologic activity in the gastrointestinal and genitourinary tracts of the abdomen and pelvis is noted. No suspicious hypermetabolic foci are seen. There continues to be diffuse osseous hypermetabolism throughout the axial and appendicular skeleton. IMPRESSION: 1. Continued diffuse osseous uptake throughout the axial and appendicular skeleton. This could be secondary to reactive marrow changes versus osseous metastatic disease. No hypermetabolic lymphadenopathy is detected. 2. Development of increased density in the left upper lobe perhaps postradiation fibrotic changes versus infiltrate. No other significant abnormality is seen. Dictated by: Dictated on workstation # [id number]
== END ==
LOC: RAD 10:30
PROVIDERS: ATTEND Internal Medicine Hematology & Oncology
DX: C50.412 Malignant neoplasm of upper-outer quadrant of left female breast (principal); R60.9 Edema, unspecified; R06.00 Dyspnea, unspecified
CPT/HCPCS: 78815; A9552

== ENCOUNTER 2021-01-28 08:56 | Outpatient (RCR) | payer MEDICARE, OTHER ==
[2020-11-12 09:08] LABS: BASOPHILS # (AUTO) 0.1 10^3/uL (0.0-0.1); BASOPHILS % (AUTO) 1 % (0-10); EOSINOPHILS # (AUTO) 0.1 10^3/uL (0.0-0.3); EOSINOPHILS % (AUTO) 2 % (0-10); HEMATOCRIT 31 % (35-52); HEMOGLOBIN 10.2 g/dL (11.5-16.0); LYMPHOCYTES # (AUTO) 1.8 10^3/uL (1.0-4.0); LYMPHOCYTES % (AUTO) 40 % (12-44); MEAN CORPUSCULAR HEMOGLOBIN 36 pg (25-34); MEAN CORPUSCULAR HGB CONC 33 g/dL (32-36); MEAN CORPUSCULAR VOLUME 109 fL (80-99); MEAN PLATELET VOLUME 10.7 fL (9.0-12.2); MONOCYTES # (AUTO) 0.4 10^3/uL (0.0-1.0); MONOCYTES % (AUTO) 8 % (0-12); NEUTROPHILS # (AUTO) 2.1 10^3/uL (1.8-7.8); NEUTROPHILS % (AUTO) 48 % (42-75); PLATELET COUNT 249 10^3/uL (130-400); WHITE BLOOD COUNT 4.5 10^3/uL (4.3-11.0)
[2020-11-12 09:25] LABS: CALCIUM 9.7 MG/DL (8.5-10.1); CREATININE SERUM 0.94 MG/DL (0.60-1.30); POTASSIUM 4.4 MMOL/L (3.6-5.0)
[2020-11-19 09:13] LABS: BASOPHILS % (AUTO) 1 % (0-10); EOSINOPHILS # (AUTO) 0.1 10^3/uL (0.0-0.3); EOSINOPHILS % (AUTO) 2 % (0-10); HEMATOCRIT 31 % (35-52); HEMOGLOBIN 9.9 g/dL (11.5-16.0); LYMPHOCYTES # (AUTO) 1.6 10^3/uL (1.0-4.0); LYMPHOCYTES % (AUTO) 45 % (12-44); MEAN CORPUSCULAR HEMOGLOBIN 35 pg (25-34); MEAN CORPUSCULAR HGB CONC 32 g/dL (32-36); MEAN CORPUSCULAR VOLUME 110 fL (80-99); MEAN PLATELET VOLUME 10.1 fL (9.0-12.2); MONOCYTES # (AUTO) 0.2 10^3/uL (0.0-1.0); MONOCYTES % (AUTO) 7 % (0-12); NEUTROPHILS # (AUTO) 1.6 10^3/uL (1.8-7.8); NEUTROPHILS % (AUTO) 45 % (42-75); PLATELET COUNT 214 10^3/uL (130-400); WHITE BLOOD COUNT 3.5 10^3/uL (4.3-11.0)
[2020-11-19 09:29] LABS: CALCIUM 9.3 MG/DL (8.5-10.1); CREATININE SERUM 0.99 MG/DL (0.60-1.30); POTASSIUM 4.5 MMOL/L (3.6-5.0)
[2020-11-26 09:11] LABS: BASOPHILS # (AUTO) 0.1 10^3/uL (0.0-0.1); BASOPHILS % (AUTO) 1 % (0-10); EOSINOPHILS % (AUTO) 1 % (0-10); HEMATOCRIT 33 % (35-52); HEMOGLOBIN 10.7 g/dL (11.5-16.0); LYMPHOCYTES % (AUTO) 44 % (12-44); MEAN CORPUSCULAR HEMOGLOBIN 36 pg (25-34); MEAN CORPUSCULAR HGB CONC 33 g/dL (32-36); MEAN CORPUSCULAR VOLUME 111 fL (80-99); MEAN PLATELET VOLUME 10.5 fL (9.0-12.2); MONOCYTES # (AUTO) 0.3 10^3/uL (0.0-1.0); MONOCYTES % (AUTO) 6 % (0-12); NEUTROPHILS # (AUTO) 2.2 10^3/uL (1.8-7.8); NEUTROPHILS % (AUTO) 48 % (42-75); PLATELET COUNT 250 10^3/uL (130-400); WHITE BLOOD COUNT 4.6 10^3/uL (4.3-11.0)
[2020-11-26 09:24] LABS: CALCIUM 9.5 MG/DL (8.5-10.1); CREATININE SERUM 0.99 MG/DL (0.60-1.30); POTASSIUM 4.7 MMOL/L (3.6-5.0)
[2020-12-03 09:05] LABS: BASOPHILS # (AUTO) 0.1 10^3/uL (0.0-0.1); BASOPHILS % (AUTO) 1 % (0-10); EOSINOPHILS # (AUTO) 0.1 10^3/uL (0.0-0.3); EOSINOPHILS % (AUTO) 2 % (0-10); HEMATOCRIT 33 % (35-52); HEMOGLOBIN 10.5 g/dL (11.5-16.0); LYMPHOCYTES # (AUTO) 1.5 10^3/uL (1.0-4.0); LYMPHOCYTES % (AUTO) 31 % (12-44); MEAN CORPUSCULAR HEMOGLOBIN 36 pg (25-34); MEAN CORPUSCULAR HGB CONC 32 g/dL (32-36); MEAN CORPUSCULAR VOLUME 112 fL (80-99); MONOCYTES # (AUTO) 0.5 10^3/uL (0.0-1.0); MONOCYTES % (AUTO) 10 % (0-12); NEUTROPHILS # (AUTO) 2.7 10^3/uL (1.8-7.8); NEUTROPHILS % (AUTO) 56 % (42-75); PLATELET COUNT 223 10^3/uL (130-400); WHITE BLOOD COUNT 4.8 10^3/uL (4.3-11.0)
[2020-12-03 09:27] LABS: ALBUMIN 4.3 GM/DL (3.2-4.5); BILIRUBIN,TOTAL 0.4 MG/DL (0.1-1.0); CALCIUM 9.5 MG/DL (8.5-10.1); CREATININE SERUM 1.09 MG/DL (0.60-1.30); TOTAL PROTEIN 6.9 GM/DL (6.4-8.2)
[2020-12-10 09:19] LABS: BASOPHILS % (AUTO) 1 % (0-10); EOSINOPHILS # (AUTO) 0.1 10^3/uL (0.0-0.3); EOSINOPHILS % (AUTO) 3 % (0-10); HEMATOCRIT 32 % (35-52); HEMOGLOBIN 10.4 g/dL (11.5-16.0); LYMPHOCYTES # (AUTO) 1.7 10^3/uL (1.0-4.0); LYMPHOCYTES % (AUTO) 40 % (12-44); MEAN CORPUSCULAR HEMOGLOBIN 36 pg (25-34); MEAN CORPUSCULAR HGB CONC 33 g/dL (32-36); MEAN CORPUSCULAR VOLUME 109 fL (80-99); MEAN PLATELET VOLUME 10.5 fL (9.0-12.2); MONOCYTES # (AUTO) 0.3 10^3/uL (0.0-1.0); MONOCYTES % (AUTO) 7 % (0-12); NEUTROPHILS # (AUTO) 2.1 10^3/uL (1.8-7.8); NEUTROPHILS % (AUTO) 49 % (42-75); PLATELET COUNT 234 10^3/uL (130-400); WHITE BLOOD COUNT 4.3 10^3/uL (4.3-11.0)
[2020-12-10 09:41] LABS: CALCIUM 9.6 MG/DL (8.5-10.1); CREATININE SERUM 1.1 MG/DL (0.60-1.30); POTASSIUM 4.4 MMOL/L (3.6-5.0)
[2020-12-17 09:08] LABS: BASOPHILS % (AUTO) 1 % (0-10); EOSINOPHILS # (AUTO) 0.1 10^3/uL (0.0-0.3); EOSINOPHILS % (AUTO) 2 % (0-10); HEMATOCRIT 31 % (35-52); HEMOGLOBIN 10.6 g/dL (11.5-16.0); LYMPHOCYTES # (AUTO) 1.7 10^3/uL (1.0-4.0); LYMPHOCYTES % (AUTO) 40 % (12-44); MEAN CORPUSCULAR HEMOGLOBIN 36 pg (25-34); MEAN CORPUSCULAR HGB CONC 34 g/dL (32-36); MEAN CORPUSCULAR VOLUME 108 fL (80-99); MEAN PLATELET VOLUME 10.1 fL (9.0-12.2); MONOCYTES # (AUTO) 0.3 10^3/uL (0.0-1.0); MONOCYTES % (AUTO) 6 % (0-12); NEUTROPHILS # (AUTO) 2.2 10^3/uL (1.8-7.8); NEUTROPHILS % (AUTO) 51 % (42-75); PLATELET COUNT 232 10^3/uL (130-400); WHITE BLOOD COUNT 4.3 10^3/uL (4.3-11.0)
[2020-12-17 09:30] LABS: CALCIUM 9.5 MG/DL (8.5-10.1); CREATININE SERUM 1.09 MG/DL (0.60-1.30); POTASSIUM 4.3 MMOL/L (3.6-5.0)
[2020-12-24 09:46] LABS: BASOPHILS % (AUTO) 1 % (0-10); EOSINOPHILS % (AUTO) 1 % (0-10); HEMATOCRIT 33 % (35-52); LYMPHOCYTES # (AUTO) 1.9 10^3/uL (1.0-4.0); LYMPHOCYTES % (AUTO) 42 % (12-44); MEAN CORPUSCULAR HEMOGLOBIN 36 pg (25-34); MEAN CORPUSCULAR HGB CONC 33 g/dL (32-36); MEAN CORPUSCULAR VOLUME 109 fL (80-99); MEAN PLATELET VOLUME 10.6 fL (9.0-12.2); MONOCYTES # (AUTO) 0.4 10^3/uL (0.0-1.0); MONOCYTES % (AUTO) 9 % (0-12); NEUTROPHILS # (AUTO) 2.2 10^3/uL (1.8-7.8); NEUTROPHILS % (AUTO) 47 % (42-75); PLATELET COUNT 254 10^3/uL (130-400); WHITE BLOOD COUNT 4.6 10^3/uL (4.3-11.0)
[2020-12-24 10:12] LABS: CALCIUM 9.6 MG/DL (8.5-10.1); CREATININE SERUM 0.94 MG/DL (0.60-1.30); POTASSIUM 4.5 MMOL/L (3.6-5.0)
[2020-12-31 09:23] LABS: BASOPHILS % (AUTO) 1 % (0-10); EOSINOPHILS # (AUTO) 0.1 10^3/uL (0.0-0.3); EOSINOPHILS % (AUTO) 1 % (0-10); HEMATOCRIT 33 % (35-52); HEMOGLOBIN 10.6 g/dL (11.5-16.0); LYMPHOCYTES # (AUTO) 1.8 10^3/uL (1.0-4.0); LYMPHOCYTES % (AUTO) 31 % (12-44); MEAN CORPUSCULAR HEMOGLOBIN 36 pg (25-34); MEAN CORPUSCULAR HGB CONC 33 g/dL (32-36); MEAN CORPUSCULAR VOLUME 109 fL (80-99); MEAN PLATELET VOLUME 10.3 fL (9.0-12.2); MONOCYTES # (AUTO) 0.6 10^3/uL (0.0-1.0); MONOCYTES % (AUTO) 11 % (0-12); NEUTROPHILS # (AUTO) 3.2 10^3/uL (1.8-7.8); NEUTROPHILS % (AUTO) 56 % (42-75); PLATELET COUNT 240 10^3/uL (130-400); WHITE BLOOD COUNT 5.7 10^3/uL (4.3-11.0)
[2020-12-31 09:40] LABS: ALBUMIN 4.1 GM/DL (3.2-4.5); BILIRUBIN,TOTAL 0.5 MG/DL (0.1-1.0); CALCIUM 9.5 MG/DL (8.5-10.1); CREATININE SERUM 1.04 MG/DL (0.60-1.30); POTASSIUM 4.4 MMOL/L (3.6-5.0); TOTAL PROTEIN 6.7 GM/DL (6.4-8.2)
[2021-01-07 09:25] LABS: BASOPHILS % (AUTO) 1 % (0-10); EOSINOPHILS # (AUTO) 0.1 10^3/uL (0.0-0.3); EOSINOPHILS % (AUTO) 2 % (0-10); HEMATOCRIT 32 % (35-52); HEMOGLOBIN 10.6 g/dL (11.5-16.0); LYMPHOCYTES # (AUTO) 1.7 10^3/uL (1.0-4.0); LYMPHOCYTES % (AUTO) 37 % (12-44); MEAN CORPUSCULAR HEMOGLOBIN 36 pg (25-34); MEAN CORPUSCULAR HGB CONC 33 g/dL (32-36); MEAN CORPUSCULAR VOLUME 108 fL (80-99); MEAN PLATELET VOLUME 10.4 fL (9.0-12.2); MONOCYTES # (AUTO) 0.4 10^3/uL (0.0-1.0); MONOCYTES % (AUTO) 8 % (0-12); NEUTROPHILS # (AUTO) 2.5 10^3/uL (1.8-7.8); NEUTROPHILS % (AUTO) 52 % (42-75); PLATELET COUNT 227 10^3/uL (130-400); WHITE BLOOD COUNT 4.7 10^3/uL (4.3-11.0)
[2021-01-07 09:42] LABS: POTASSIUM 4.6 MMOL/L (3.6-5.0)
[2021-01-14 09:13] LABS: BASOPHILS % (AUTO) 1 % (0-10); EOSINOPHILS # (AUTO) 0.1 10^3/uL (0.0-0.3); EOSINOPHILS % (AUTO) 2 % (0-10); HEMATOCRIT 32 % (35-52); HEMOGLOBIN 10.6 g/dL (11.5-16.0); LYMPHOCYTES # (AUTO) 1.6 10^3/uL (1.0-4.0); LYMPHOCYTES % (AUTO) 33 % (12-44); MEAN CORPUSCULAR HEMOGLOBIN 36 pg (25-34); MEAN CORPUSCULAR HGB CONC 33 g/dL (32-36); MEAN CORPUSCULAR VOLUME 109 fL (80-99); MEAN PLATELET VOLUME 10.3 fL (9.0-12.2); MONOCYTES # (AUTO) 0.3 10^3/uL (0.0-1.0); MONOCYTES % (AUTO) 6 % (0-12); NEUTROPHILS % (AUTO) 59 % (42-75); PLATELET COUNT 221 10^3/uL (130-400)
[2021-01-14 09:30] LABS: CALCIUM 9.9 MG/DL (8.5-10.1); CREATININE SERUM 0.98 MG/DL (0.60-1.30); POTASSIUM 4.2 MMOL/L (3.6-5.0)
[2021-01-21 09:21] LABS: BASOPHILS % (AUTO) 1 % (0-10); EOSINOPHILS % (AUTO) 1 % (0-10); HEMATOCRIT 33 % (35-52); HEMOGLOBIN 10.8 g/dL (11.5-16.0); LYMPHOCYTES # (AUTO) 1.4 10^3/uL (1.0-4.0); LYMPHOCYTES % (AUTO) 36 % (12-44); MEAN CORPUSCULAR HEMOGLOBIN 36 pg (25-34); MEAN CORPUSCULAR HGB CONC 33 g/dL (32-36); MEAN CORPUSCULAR VOLUME 109 fL (80-99); MEAN PLATELET VOLUME 10.2 fL (9.0-12.2); MONOCYTES # (AUTO) 0.3 10^3/uL (0.0-1.0); MONOCYTES % (AUTO) 7 % (0-12); NEUTROPHILS # (AUTO) 2.2 10^3/uL (1.8-7.8); NEUTROPHILS % (AUTO) 56 % (42-75); PLATELET COUNT 239 10^3/uL (130-400); WHITE BLOOD COUNT 3.9 10^3/uL (4.3-11.0)
[2021-01-21 09:39] LABS: CREATININE SERUM 0.94 MG/DL (0.60-1.30); POTASSIUM 4.8 MMOL/L (3.6-5.0)
[~2021-01-28 08:56] MED LIST changes: -CATHETER FLUSH 10 ML SYR IV PRN; -HOLD METFORMIN - RECEIVED CONTRAST 20 ML VIAL IV SCH; -IOHEXOL 350 MG/ML 100 ML (OMNIPAQUE 350) VIAL IV ONE; -NS 100 ML (IVPB) BAG IV ONE; +NS IV 1000 ML (CANCER CTR) IV SCH; +PACLitaxel PROTEIN 170 MG in EMPTY IV BAG (PVC) CANCER CTR 1 EA IV SCH; +ZOLEDRONIC ACID (CANCER CTR) 3 MG in NS (IVPB) CANCER CENTER 100 ML IV SCH
[2021-01-28 09:18] LABS: BASOPHILS % (AUTO) 0 % (0-10); EOSINOPHILS % (AUTO) 0 % (0-10); HEMATOCRIT 30 % (35-52); HEMOGLOBIN 9.8 g/dL (11.5-16.0); LYMPHOCYTES # (AUTO) 1.3 10^3/uL (1.0-4.0); LYMPHOCYTES % (AUTO) 19 % (12-44); MEAN CORPUSCULAR HEMOGLOBIN 35 pg (25-34); MEAN CORPUSCULAR HGB CONC 33 g/dL (32-36); MEAN CORPUSCULAR VOLUME 109 fL (80-99); MONOCYTES # (AUTO) 0.6 10^3/uL (0.0-1.0); MONOCYTES % (AUTO) 9 % (0-12); NEUTROPHILS # (AUTO) 4.8 10^3/uL (1.8-7.8); NEUTROPHILS % (AUTO) 71 % (42-75); PLATELET COUNT 282 10^3/uL (130-400); WHITE BLOOD COUNT 6.7 10^3/uL (4.3-11.0)
[2021-01-28 09:38] LABS: ALBUMIN 4.4 GM/DL (3.2-4.5); BILIRUBIN,TOTAL 0.3 MG/DL (0.1-1.0); CALCIUM 9.5 MG/DL (8.5-10.1); CREATININE SERUM 1.05 MG/DL (0.60-1.30); POTASSIUM 4.2 MMOL/L (3.6-5.0); TOTAL PROTEIN 7.8 GM/DL (6.4-8.2)
[2021-01-28] MEDS ORDERED: ACETAMINOPHEN 325 MG TAB (TYLENOL) CANCER CTR PO ONE (11:29)
== END 2021-02-10 | disposition home or self-care (01) ==
LOC: ONC 08:56
PROVIDERS: ATTEND Internal Medicine Hematology & Oncology
DX: C50.412 Malignant neoplasm of upper-outer quadrant of left female breast (principal); C79.51 Secondary malignant neoplasm of bone; C78.6 Secondary malignant neoplasm of retroperitoneum and peritoneum; G89.3 Neoplasm related pain (acute) (chronic); D64.9 Anemia, unspecified; D69.6 Thrombocytopenia, unspecified; Z87.891 Personal history of nicotine dependence
CPT/HCPCS: 36591; 80048; 80053; 82306; 85025; 86300; 96360; 96367; 96375; 96413; 99213

== ENCOUNTER → 2021-01-28 | Outpatient (CLI) | payer MEDICARE, OTHER ==
[~2021-01-28] MED LIST changes: +CATHETER FLUSH 10 ML SYR IV PRN; +HOLD METFORMIN - RECEIVED CONTRAST 20 ML VIAL IV SCH; +IOHEXOL 350 MG/ML 100 ML (OMNIPAQUE 350) VIAL IV ONE; +NS 100 ML (IVPB) BAG IV ONE
--- NOTE | 2021-01-28 12:13 | Diagnostic Imaging Report ---
PROCEDURE: CT angiography Chest. TECHNIQUE: After intravenous administration of contrast, thin section axial CT angiography of the chest was performed. 3D MIP reconstructions were made. All CT scans use one or more of the following dose optimizing techniques: automated exposure control, MA and/or KvP adjustment based on a patient size and exam type, or iterative reconstruction. INDICATION: Dyspnea with breast cancer. COMPARISON: 07/23/2020. FINDINGS: Vasculature: No pulmonary emboli. No CT evidence of pulmonary hypertension or right ventricular strain. Thoracic aorta is normal in caliber. No aortic dissection or pseudoaneurysm. Heart and mediastinum: Visualized thyroid is normal. No supraclavicular, axillary, or intra-thoracic lymphadenopathy. The heart is normal in size without pericardial effusion. Pleura: No pleural effusion or pneumothorax. Lungs and airway: No endoluminal lesion in the trachea or central bronchi. Irregular nodular thickening of the interlobular septum within the lung bases. Left upper lobe groundglass opacities are present and have diminished since the PET/CT of two days prior. Upper abdomen: Allowing for the phase of contrast, no acute abnormality in the upper abdomen is seen. Musculoskeletal: Multifocal sclerotic lesions throughout the ribs and vague lucencies within the vertebrae are compatible with patient's known skeletal metastases. IMPRESSION: 1. No pulmonary emboli or acute aortic syndrome. 2. Resolving consolidations in the left upper lobe. These are nonspecific but favor an infectious/inflammatory process. 3. 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 4. Multifocal skeletal metastases are better appreciated on the PET/CT from 01/26/2021. Report was called to Dr. Parikh by Dr. Josh Gipson at 11:58 a.m. on 01/28/2021. Dictated by: Dictated on workstation # [id number]
== END ==
LOC: RAD 10:27
PROVIDERS: ATTEND Internal Medicine Hematology & Oncology
DX: C50.412 Malignant neoplasm of upper-outer quadrant of left female breast (principal)
CPT/HCPCS: 71275

== ENCOUNTER → 2021-04-02 | Outpatient (CLI) | payer MEDICARE, OTHER ==
[~2021-04-02] MED LIST changes: +GADOBUTROL 10 MMOL/10 ML (GADAVIST) VIAL IV ONE; -NS IV 1000 ML (CANCER CTR) IV SCH; -PACLitaxel PROTEIN 170 MG in EMPTY IV BAG (PVC) CANCER CTR 1 EA IV SCH; -ZOLEDRONIC ACID (CANCER CTR) 3 MG in NS (IVPB) CANCER CENTER 100 ML IV SCH
--- NOTE | 2021-04-02 14:08 | Diagnostic Imaging Report ---
TECHNIQUE: Multiplanar and multisequence MRI of the thoracic spine is performed with and without contrast. REASON FOR EXAM: Low back pain. History of stage IV breast cancer. COMPARISON: 01/28/2021. FINDINGS: Oetdcdiz-yf-sekojtj compression deformity is seen involving the T8 vertebral body, resulting in approximately 50% height loss and focal mild kyphosis in the thoracic spine at this level. No significant bony retropulsion or associated spinal canal stenosis is seen. Multiple enhancing lesions are scattered throughout the thoracic spine. A prominent lesion in the T2 vertebral body measures 1.9 x 1.0 cm with central hypointense signal. A similar-appearing lesion is seen in the T5 level measuring 1.7 x 1.4 cm. A large peripherally enhancing lesion is seen in the T12 vertebral body measuring 2.2 x 2.0 cm. The intrinsic signal within the thoracic spinal cord is normal. No evidence of cord expansion. No epidural collections. No high-grade spinal canal or foraminal stenosis is seen in the thoracic spine. The soft tissues of the thoracic spine are unremarkable. The included lungs are clear. IMPRESSION: 1. Dgypbbll-lr-bvfkjlu compression fracture involving the T8 vertebral body. Given the diffuse osseous metastatic disease throughout the thoracic spine, this is favored to represent a pathologic fracture although no significant enhancement is seen associated with this vertebral body. No bony retropulsion or spinal canal stenosis is seen at this level. 2. Widespread osseous metastatic disease throughout the thoracic spine. The largest enhancing lesions are noted at the T2, T5, and T12 vertebral bodies. 3. Normal intrinsic signal within the thoracic spinal cord. No high-grade spinal canal or foraminal stenosis. Dictated by: Dictated on workstation # [id number]
--- NOTE | 2021-04-02 14:11 | Diagnostic Imaging Report ---
PROCEDURE: MRI lumbar spine with and without contrast. TECHNIQUE: Multiplanar, multisequence MRI of the lumbar spine was performed with and without contrast. INDICATION: Back pain. Lower extremity radiculopathy. History of stage IV metastatic breast cancer. COMPARISON: PET/CT on 01/26/2021. FINDINGS: 5 lumbar type vertebral bodies are visualized with the last well-formed disc space designated L5-S1. No acute fracture or dislocation is seen in the lumbar spine. Alignment is anatomic. Vertebral body heights are well-maintained. Osseous metastatic lesions are seen throughout the lumbar spine. Osseous metastatic lesions are also seen in the included sacrum and pelvis. No associated pathologic fracture is seen. The conus terminates at the L1 level. No masses are seen associated with the conus or nerve roots of the cauda equina. No epidural collections are identified. Multilevel degenerative changes are seen in the lumbar spine with disc bulges, facet hypertrophy, and buckling of the ligamentum flavum. T12-L1: No significant spinal canal or foraminal stenosis. L1-L2: Broad-based disc bulge, facet hypertrophy, and buckling of the ligamentum flavum results in mild spinal canal narrowing and moderate bilateral foraminal stenosis. L2-L3: Broad-based disc bulge, facet hypertrophy, and buckling of the ligamentum flavum results in moderate spinal canal stenosis and moderate to severe bilateral foraminal stenosis. L3-L4: Broad-based disc bulge, facet hypertrophy, and buckling of the ligamentum flavum results in wpctxzyo-zz-wlrcig spinal canal stenosis and hxdf-ql-ykjtkljw right and zceqdipq-ra-wlmzip left foraminal stenosis. L4-L5: Broad-based disc bulge, facet hypertrophy, and buckling of the ligamentum flavum results in severe spinal canal stenosis and severe right and oemucuej-je-ylbrdm left foraminal stenosis. L5-S1: Broad-based disc bulge, facet hypertrophy, and buckling of the ligamentum flavum results in moderate spinal canal stenosis and moderate to severe bilateral foraminal stenosis. Paravertebral soft tissues are unremarkable. IMPRESSION: 1. No acute fracture or dislocation in the lumbar spine. 2. Widespread metastatic disease throughout the lumbar spine and visualized sacrum and pelvis. No pathologic fractures are seen. 3. Multilevel degenerative changes throughout the lumbar spine. These are most severe at the L4-L5 level. Dictated by: Dictated on workstation # [id number]
== END ==
LOC: RAD 09:03
PROVIDERS: ATTEND Internal Medicine Hematology & Oncology
DX: C50.412 Malignant neoplasm of upper-outer quadrant of left female breast (principal); C79.51 Secondary malignant neoplasm of bone; M47.816 Spondylosis without myelopathy or radiculopathy, lumbar region
CPT/HCPCS: 72157; 72158; 80053; 85025; 86300; 96365; 96375; 96376; 96402; G0463; 36591; 77290; 77295; 77300; 77334; 99204; 99214

== ENCOUNTER 2021-05-06 09:19 | Outpatient (RCR) | payer MEDICARE, OTHER ==
[2021-02-11 15:14] LABS: BASOPHILS # (AUTO) 0.1 10^3/uL (0.0-0.1); BASOPHILS % (AUTO) 1 % (0-10); EOSINOPHILS # (AUTO) 0.2 10^3/uL (0.0-0.3); EOSINOPHILS % (AUTO) 2 % (0-10); HEMATOCRIT 31 % (35-52); HEMOGLOBIN 10.2 g/dL (11.5-16.0); LYMPHOCYTES # (AUTO) 1.3 X 10^3 (1.0-4.0); LYMPHOCYTES % (AUTO) 15 % (12-44); MEAN CORPUSCULAR HEMOGLOBIN 35 pg (25-34); MEAN CORPUSCULAR HGB CONC 33 g/dL (32-36); MEAN CORPUSCULAR VOLUME 108 fL (80-99); MEAN PLATELET VOLUME 9.8 fL (9.0-12.2); MONOCYTES # (AUTO) 0.8 X 10^3 (0.0-1.0); MONOCYTES % (AUTO) 10 % (0-12); NEUTROPHILS # (AUTO) 6.1 X 10^3 (1.8-7.8); NEUTROPHILS % (AUTO) 72 % (42-75); PLATELET COUNT 245 10^3/uL (130-400); WHITE BLOOD COUNT 8.5 10^3/uL (4.3-11.0)
[2021-02-11 18:28] LABS: ALBUMIN 4.2 GM/DL (3.2-4.5); POTASSIUM 4.5 MMOL/L (3.6-5.0)
[2021-02-11 18:30] LABS: CALCIUM 10.4 MG/DL (8.5-10.1)
[2021-02-11 18:31] LABS: TOTAL PROTEIN 7.4 GM/DL (6.4-8.2)
[2021-02-11 18:32] LABS: BILIRUBIN,TOTAL 0.8 MG/DL (0.1-1.0)
[2021-02-11 18:34] LABS: CREATININE SERUM 1.51 MG/DL (0.60-1.30)
[2021-02-18 11:45] LABS: BASOPHILS % (AUTO) 1 % (0-10); EOSINOPHILS # (AUTO) 0.3 10^3/uL (0.0-0.3); EOSINOPHILS % (AUTO) 5 % (0-10); HEMATOCRIT 32 % (35-52); HEMOGLOBIN 10.3 g/dL (11.5-16.0); LYMPHOCYTES # (AUTO) 0.8 10^3/uL (1.0-4.0); LYMPHOCYTES % (AUTO) 14 % (12-44); MEAN CORPUSCULAR HEMOGLOBIN 35 pg (25-34); MEAN CORPUSCULAR HGB CONC 32 g/dL (32-36); MEAN CORPUSCULAR VOLUME 108 fL (80-99); MEAN PLATELET VOLUME 9.7 fL (9.0-12.2); MONOCYTES # (AUTO) 0.2 10^3/uL (0.0-1.0); MONOCYTES % (AUTO) 3 % (0-12); NEUTROPHILS # (AUTO) 4.7 10^3/uL (1.8-7.8); NEUTROPHILS % (AUTO) 78 % (42-75); PLATELET COUNT 315 10^3/uL (130-400); WHITE BLOOD COUNT 6.1 10^3/uL (4.3-11.0)
[2021-02-18 12:01] LABS: CALCIUM 9.8 MG/DL (8.5-10.1); CREATININE SERUM 1.26 MG/DL (0.60-1.30); POTASSIUM 4.5 MMOL/L (3.6-5.0)
[2021-02-25 10:10] LABS: BASOPHILS % (AUTO) 1 % (0-10); EOSINOPHILS # (AUTO) 0.1 10^3/uL (0.0-0.3); EOSINOPHILS % (AUTO) 3 % (0-10); HEMATOCRIT 31 % (35-52); HEMOGLOBIN 10.2 g/dL (11.5-16.0); LYMPHOCYTES # (AUTO) 0.7 10^3/uL (1.0-4.0); LYMPHOCYTES % (AUTO) 23 % (12-44); MEAN CORPUSCULAR HEMOGLOBIN 35 pg (25-34); MEAN CORPUSCULAR HGB CONC 33 g/dL (32-36); MEAN CORPUSCULAR VOLUME 108 fL (80-99); MEAN PLATELET VOLUME 9.5 fL (9.0-12.2); MONOCYTES # (AUTO) 0.1 10^3/uL (0.0-1.0); MONOCYTES % (AUTO) 5 % (0-12); NEUTROPHILS # (AUTO) 2.1 10^3/uL (1.8-7.8); NEUTROPHILS % (AUTO) 69 % (42-75); PLATELET COUNT 227 10^3/uL (130-400)
[2021-02-25 10:29] LABS: CALCIUM 9.9 MG/DL (8.5-10.1); CREATININE SERUM 1.15 MG/DL (0.60-1.30); POTASSIUM 4.4 MMOL/L (3.6-5.0)
[2021-03-04 09:56] LABS: BASOPHILS % (AUTO) 1 % (0-10); EOSINOPHILS % (AUTO) 1 % (0-10); HEMATOCRIT 30 % (35-52); HEMOGLOBIN 9.5 g/dL (11.5-16.0); LYMPHOCYTES # (AUTO) 0.8 10^3/uL (1.0-4.0); LYMPHOCYTES % (AUTO) 26 % (12-44); MEAN CORPUSCULAR HEMOGLOBIN 34 pg (25-34); MEAN CORPUSCULAR HGB CONC 32 g/dL (32-36); MEAN CORPUSCULAR VOLUME 108 fL (80-99); MEAN PLATELET VOLUME 10.4 fL (9.0-12.2); MONOCYTES # (AUTO) 0.1 10^3/uL (0.0-1.0); MONOCYTES % (AUTO) 4 % (0-12); NEUTROPHILS # (AUTO) 2.1 10^3/uL (1.8-7.8); NEUTROPHILS % (AUTO) 67 % (42-75); PLATELET COUNT 179 10^3/uL (130-400); WHITE BLOOD COUNT 3.2 10^3/uL (4.3-11.0)
[2021-03-04 10:19] LABS: CALCIUM 9.7 MG/DL (8.5-10.1); CREATININE SERUM 1.23 MG/DL (0.60-1.30); POTASSIUM 4.4 MMOL/L (3.6-5.0)
[2021-03-11 14:10] LABS: BASOPHILS % (AUTO) 1 % (0-10); EOSINOPHILS % (AUTO) 1 % (0-10); HEMATOCRIT 29 % (35-52); HEMOGLOBIN 9.5 g/dL (11.5-16.0); LYMPHOCYTES # (AUTO) 1.4 10^3/uL (1.0-4.0); LYMPHOCYTES % (AUTO) 46 % (12-44); MEAN CORPUSCULAR HEMOGLOBIN 36 pg (25-34); MEAN CORPUSCULAR HGB CONC 33 g/dL (32-36); MEAN CORPUSCULAR VOLUME 108 fL (80-99); MEAN PLATELET VOLUME 9.5 fL (9.0-12.2); MONOCYTES # (AUTO) 0.4 10^3/uL (0.0-1.0); MONOCYTES % (AUTO) 13 % (0-12); NEUTROPHILS # (AUTO) 1.2 10^3/uL (1.8-7.8); NEUTROPHILS % (AUTO) 39 % (42-75); PLATELET COUNT 232 10^3/uL (130-400); WHITE BLOOD COUNT 3.1 10^3/uL (4.3-11.0)
[2021-03-11 14:30] LABS: ALBUMIN 4.1 GM/DL (3.2-4.5); BILIRUBIN,TOTAL 0.3 MG/DL (0.1-1.0); CALCIUM 10.4 MG/DL (8.5-10.1); CREATININE SERUM 1.19 MG/DL (0.60-1.30); POTASSIUM 4.5 MMOL/L (3.6-5.0); TOTAL PROTEIN 7.4 GM/DL (6.4-8.2)
[2021-04-08 13:35] LABS: LYMPHOCYTES % (AUTO) 40 % (12-44)
[2021-04-08 13:37] LABS: BASOPHILS % (AUTO) 2 % (0-10); EOSINOPHILS % (AUTO) 2 % (0-10); HEMATOCRIT 26 % (35-52); HEMOGLOBIN 8.5 g/dL (11.5-16.0); LYMPHOCYTES # (AUTO) 0.8 10^3/uL (1.0-4.0); MEAN CORPUSCULAR HEMOGLOBIN 36 pg (25-34); MEAN CORPUSCULAR HGB CONC 33 g/dL (32-36); MEAN CORPUSCULAR VOLUME 109 fL (80-99); MEAN PLATELET VOLUME 10.2 fL (9.0-12.2); MONOCYTES # (AUTO) 0.2 10^3/uL (0.0-1.0); MONOCYTES % (AUTO) 9 % (0-12); NEUTROPHILS # (AUTO) 0.9 10^3/uL (1.8-7.8); NEUTROPHILS % (AUTO) 48 % (42-75); PLATELET COUNT 143 10^3/uL (130-400); WHITE BLOOD COUNT 1.9 10^3/uL (4.3-11.0)
[2021-04-08 13:53] LABS: BILIRUBIN,TOTAL 0.5 MG/DL (0.1-1.0); CALCIUM 11.4 MG/DL (8.5-10.1); CREATININE SERUM 1.58 MG/DL (0.60-1.30); POTASSIUM 4.3 MMOL/L (3.6-5.0)
[2021-04-14 11:29] LABS: BASOPHILS # (AUTO) 0.1 10^3/uL (0.0-0.1); BASOPHILS % (AUTO) 2 % (0-10); EOSINOPHILS # (AUTO) 0.1 10^3/uL (0.0-0.3); EOSINOPHILS % (AUTO) 3 % (0-10); HEMATOCRIT 30 % (35-52); HEMOGLOBIN 9.8 g/dL (11.5-16.0); LYMPHOCYTES # (AUTO) 0.8 10^3/uL (1.0-4.0); LYMPHOCYTES % (AUTO) 35 % (12-44); MEAN CORPUSCULAR HEMOGLOBIN 36 pg (25-34); MEAN CORPUSCULAR HGB CONC 33 g/dL (32-36); MEAN CORPUSCULAR VOLUME 111 fL (80-99); MONOCYTES # (AUTO) 0.4 10^3/uL (0.0-1.0); MONOCYTES % (AUTO) 17 % (0-12); NEUTROPHILS % (AUTO) 43 % (42-75); PLATELET COUNT 154 10^3/uL (130-400); WHITE BLOOD COUNT 2.2 10^3/uL (4.3-11.0)
[2021-04-14 11:46] LABS: CALCIUM 9.8 MG/DL (8.5-10.1); CREATININE SERUM 1.29 MG/DL (0.60-1.30); POTASSIUM 4.1 MMOL/L (3.6-5.0)
[2021-04-21 10:39] LABS: BASOPHILS # (AUTO) 0.1 10^3/uL (0.0-0.1); BASOPHILS % (AUTO) 1 % (0-10); EOSINOPHILS # (AUTO) 0.1 10^3/uL (0.0-0.3); EOSINOPHILS % (AUTO) 2 % (0-10); HEMATOCRIT 31 % (35-52); HEMOGLOBIN 9.9 g/dL (11.5-16.0); LYMPHOCYTES # (AUTO) 0.8 10^3/uL (1.0-4.0); LYMPHOCYTES % (AUTO) 19 % (12-44); MEAN CORPUSCULAR HEMOGLOBIN 35 pg (25-34); MEAN CORPUSCULAR HGB CONC 32 g/dL (32-36); MEAN CORPUSCULAR VOLUME 110 fL (80-99); MEAN PLATELET VOLUME 9.6 fL (9.0-12.2); MONOCYTES # (AUTO) 0.6 10^3/uL (0.0-1.0); MONOCYTES % (AUTO) 14 % (0-12); NEUTROPHILS # (AUTO) 2.7 10^3/uL (1.8-7.8); NEUTROPHILS % (AUTO) 63 % (42-75); PLATELET COUNT 262 10^3/uL (130-400); WHITE BLOOD COUNT 4.2 10^3/uL (4.3-11.0)
[2021-04-21 11:00] LABS: CALCIUM 9.9 MG/DL (8.5-10.1); CREATININE SERUM 0.91 MG/DL (0.60-1.30); POTASSIUM 4.2 MMOL/L (3.6-5.0)
[2021-05-05 10:19] LABS: BASOPHILS # (AUTO) 0.1 10^3/uL (0.0-0.1); BASOPHILS % (AUTO) 1 % (0-10); EOSINOPHILS # (AUTO) 0.2 10^3/uL (0.0-0.3); EOSINOPHILS % (AUTO) 3 % (0-10); HEMATOCRIT 32 % (35-52); HEMOGLOBIN 10.2 g/dL (11.5-16.0); LYMPHOCYTES # (AUTO) 0.8 10^3/uL (1.0-4.0); LYMPHOCYTES % (AUTO) 14 % (12-44); MEAN CORPUSCULAR HEMOGLOBIN 35 pg (25-34); MEAN CORPUSCULAR HGB CONC 32 g/dL (32-36); MEAN CORPUSCULAR VOLUME 107 fL (80-99); MEAN PLATELET VOLUME 9.5 fL (9.0-12.2); MONOCYTES # (AUTO) 0.3 10^3/uL (0.0-1.0); MONOCYTES % (AUTO) 6 % (0-12); NEUTROPHILS # (AUTO) 4.2 10^3/uL (1.8-7.8); NEUTROPHILS % (AUTO) 76 % (42-75); PLATELET COUNT 323 10^3/uL (130-400); WHITE BLOOD COUNT 5.5 10^3/uL (4.3-11.0)
[2021-05-05 10:37] LABS: ALBUMIN 4.1 GM/DL (3.2-4.5); BILIRUBIN,TOTAL 0.6 MG/DL (0.1-1.0); CALCIUM 10.9 MG/DL (8.5-10.1); CREATININE SERUM 1.04 MG/DL (0.60-1.30); POTASSIUM 4.3 MMOL/L (3.6-5.0); TOTAL PROTEIN 7.4 GM/DL (6.4-8.2)
--- NOTE | 2021-05-05 12:41 | Diagnostic Imaging Report ---
INDICATION: Shortness of breath. COMPARISON: 10/01/2020. FINDINGS: Frontal and lateral views of the chest demonstrate unchanged aeration. The heart is slightly enlarged. There is no acute infiltrate. Stable nodule is seen in the right upper lobe. The Port-A-Cath is in good position. Osseous structures are age appropriate. Compared to the prior examination, there are at least two new age-indeterminate mid thoracic compression fractures. IMPRESSION: 1. Stable cardiac enlargement without pulmonary edema or acute infiltrate. 2. Age-indeterminate but new from the prior exam mid thoracic compression fractures. Dictated by: Dictated on workstation # [id number]
[~2021-05-06 09:19] MED LIST changes: +FULVESTRANT 250 MG/5 ML SYR (CANCER CENTER) IM SCH; -GADOBUTROL 10 MMOL/10 ML (GADAVIST) VIAL IV ONE; +NS IV 1000 ML (CANCER CTR) 1,000 ML ONE; +ZOLEDRONIC ACID (CANCER CTR) 3 MG in NS (IVPB) CANCER CENTER 100 ML IV SCH; +morphine INJ 4 MG/ML 1 ML (CANCER CTR) IV PRN; +morphine INJ 4 MG/ML 1 ML (CANCER CTR) ONE
== END 2021-05-12 | disposition home or self-care (01) ==
LOC: ONC 09:19
PROVIDERS: ATTEND Internal Medicine Hematology & Oncology
DX: C50.412 Malignant neoplasm of upper-outer quadrant of left female breast (principal); C79.51 Secondary malignant neoplasm of bone; C78.6 Secondary malignant neoplasm of retroperitoneum and peritoneum; G89.3 Neoplasm related pain (acute) (chronic); D64.9 Anemia, unspecified; D69.6 Thrombocytopenia, unspecified; Z87.891 Personal history of nicotine dependence
CPT/HCPCS: 80053; 85025; 86300; 96374; 96402; G0463; 36591; 71046; 77290; 77295; 77300; 77334; 77336; 77417; 77470; 80048; 96360; 96365; 96368; 96375; 96376; 99204; 99214

== ENCOUNTER → 2021-06-18 | Outpatient (CLI) | payer MEDICARE, OTHER ==
[~2021-06-18] MED LIST changes: +BARIUM SUSPENSION 2.1% (VANILLA SILQ) 450 ML PO ONE; +CATHETER FLUSH 10 ML SYR IV PRN; -FULVESTRANT 250 MG/5 ML SYR (CANCER CENTER) IM SCH; +HOLD METFORMIN - RECEIVED CONTRAST 20 ML VIAL IV SCH; +IOHEXOL 350 MG/ML 100 ML (OMNIPAQUE 350) VIAL IV ONE; +NS 100 ML (IVPB) BAG IV ONE; -NS IV 1000 ML (CANCER CTR) 1,000 ML ONE; -ZOLEDRONIC ACID (CANCER CTR) 3 MG in NS (IVPB) CANCER CENTER 100 ML IV SCH; -morphine INJ 4 MG/ML 1 ML (CANCER CTR) IV PRN; -morphine INJ 4 MG/ML 1 ML (CANCER CTR) ONE
[2021-06-18] MEDS: CATHETER FLUSH 10 ML SYR IV PRN ×2 (08:26→08:49)
--- NOTE | 2021-06-18 09:42 | Diagnostic Imaging Report ---
PROCEDURE: CT chest, abdomen, and pelvis with contrast. TECHNIQUE: Multiple contiguous axial images were obtained through the chest, abdomen, and pelvis after the administration of intravenous contrast. Auto Exposure Controls were utilized during the CT exam to meet ALARA standards for radiation dose reduction. INDICATION: Breast cancer. Right-sided chest pain. COMPARISON with chest CT dated 01/28/2021. The abdominal pelvic portion is correlated with a metabolic PET CT 01/26/2021 CHEST: There is no pulmonary consolidation. No suspicious pulmonary nodularity and no dominant lung mass. No findings of pneumonia or edema. There is mild right greater than left dependent basilar partial atelectasis. This patient has very small right pleural effusion and a minute left pleural effusion without loculation. The right pleural fluid at the posterior sulcus layers to a 1 cm maximal depth. Aorta is nonaneurysmal. There is no pericardial collection. There are coronary artery atherosclerotic vascular calcifications. There are vertebral body fractures resulting between 20 and 40% stature loss involving T12, T9 and T8 which do show some trabecular impaction as well as likely new bone formation from their at least partial healing. These have a subacute appearance but correlate with any back pain. Retropulsion greatest at T12 where it results in moderate canal stenosis. In addition, there were several additional thoracic bodies showing scattered sclerosis, new from prior. There are multiple bilateral healing subacute rib deformities as well as some rib sclerosis not associated with a fracture. The overall pattern is suspicious for progressive bony metastatic disease with multiple areas of pathological fracture. If pathological spinal fractures need to be confirmed for treatment planning, contrast-enhanced thoracic spinal MRI suggested. ABDOMEN / PELVIS: There is a tiny cyst in the dome of the right hepatic lobe anteriorly, stable. No solid or enhancing liver mass. The adrenals, spleen and pancreas unremarkable. The gallbladder mildly distended but no wall thickening, stone or appreciable sludge. No bile duct dilatation. There is no abdominal pelvic mesenteric or retroperitoneal adenopathy. There are uterine calcified fibroids chronic. There is no adnexal lesion. There is a subacute appearing fracture of the left iliac bone superolaterally. There is some regional sclerosis. Its is unclear how much of the sclerosis is owing to new bone formation from its partial healing or if it is reflective of a sclerotic lesion with a pathological fracture. No other suspicious abdominal pelvic bony lesion. There is no associated hemorrhage with this fracture and there is no evidence for its contrast extravasation. IMPRESSION: Overall pattern suspicious for progressive bony metastatic disease with multiple thoracic vertebral body fractures which may be pathologic as well as likely pathologic fracture of the extra-articular left iliac wing. No associated hemorrhage in the chest, abdomen or pelvis. CHEST: No findings suggestive of soft tissue metastases, basilar pleural effusions and atelectasis. No thoracic adenopathy. ABDOMEN / PELVIS: Stable hepatic cyst. No lymphadenopathy, ascites or obstructive features. No soft tissue metastatic deposit suspected Dictated by: Dictated on workstation # [id number]
--- NOTE | 2021-06-18 13:10 | Diagnostic Imaging Report ---
INDICATION: Stage IV breast carcinoma. TECHNIQUE: Patient was administered 24.2 mCi technetium 99m MDP intravenously and whole body imaging was performed after a three-hour delay. COMPARISON: No prior bone scans are available for comparison. FINDINGS: There is uptake of activity by the axial and appendicular skeleton. There is uptake by the kidneys with excretion into the urinary bladder. There is some uptake involving right-sided posterior ribs. In correlating with CT from same day, these likely represent healing fractures. Uptake in the mid and lower thoracic vertebrae is noted corresponding to recently described compression deformities. Uptake in left iliac wing is also noted corresponding with the known fracture from earlier today. No other suspicious foci of tracer accumulation are seen. IMPRESSION: Uptake in right-sided posterior ribs, thoracic vertebrae, as well as the left iliac wing, as described. No other suspicious areas of osseous uptake are identified. Dictated by: Dictated on workstation # [id number]
== END ==
LOC: CARD 08:00
PROVIDERS: ATTEND Internal Medicine Hematology & Oncology
DX: C50.412 Malignant neoplasm of upper-outer quadrant of left female breast (principal); C79.51 Secondary malignant neoplasm of bone; C78.6 Secondary malignant neoplasm of retroperitoneum and peritoneum
CPT/HCPCS: 71260; 74177; 78306; A9503

== ENCOUNTER 2021-08-02 14:53 | Outpatient (RCR) | payer MEDICARE, OTHER ==
[2021-05-17 10:34] LABS: BASOPHILS % (AUTO) 1 % (0-10); EOSINOPHILS # (AUTO) 0.1 10^3/uL (0.0-0.3); EOSINOPHILS % (AUTO) 2 % (0-10); HEMATOCRIT 32 % (35-52); HEMOGLOBIN 10.7 g/dL (11.5-16.0); LYMPHOCYTES % (AUTO) 30 % (12-44); MEAN CORPUSCULAR HEMOGLOBIN 35 pg (25-34); MEAN CORPUSCULAR HGB CONC 33 g/dL (32-36); MEAN CORPUSCULAR VOLUME 107 fL (80-99); MEAN PLATELET VOLUME 10.2 fL (9.0-12.2); MONOCYTES # (AUTO) 0.3 10^3/uL (0.0-1.0); MONOCYTES % (AUTO) 8 % (0-12); NEUTROPHILS # (AUTO) 1.9 10^3/uL (1.8-7.8); NEUTROPHILS % (AUTO) 58 % (42-75); PLATELET COUNT 164 10^3/uL (130-400); WHITE BLOOD COUNT 3.3 10^3/uL (4.3-11.0)
[2021-06-01 13:56] LABS: BASOPHILS % (AUTO) 2 % (0-10); EOSINOPHILS % (AUTO) 2 % (0-10); HEMATOCRIT 28 % (35-52); LYMPHOCYTES # (AUTO) 0.7 X 10^3 (1.0-4.0); LYMPHOCYTES % (AUTO) 30 % (12-44); MEAN CORPUSCULAR HEMOGLOBIN 35 pg (25-34); MEAN CORPUSCULAR HGB CONC 32 g/dL (32-36); MEAN CORPUSCULAR VOLUME 110 fL (80-99); MEAN PLATELET VOLUME 9.6 fL (9.0-12.2); MONOCYTES # (AUTO) 0.2 X 10^3 (0.0-1.0); MONOCYTES % (AUTO) 7 % (0-12); NEUTROPHILS # (AUTO) 1.5 X 10^3 (1.8-7.8); NEUTROPHILS % (AUTO) 60 % (42-75); PLATELET COUNT 223 10^3/uL (130-400); WHITE BLOOD COUNT 2.5 10^3/uL (4.3-11.0)
[2021-06-01 14:16] LABS: ALBUMIN 3.9 GM/DL (3.2-4.5); BILIRUBIN,TOTAL 0.4 MG/DL (0.1-1.0); CALCIUM 10.2 MG/DL (8.5-10.1); CREATININE SERUM 1.34 MG/DL (0.60-1.30); POTASSIUM 4.5 MMOL/L (3.6-5.0); TOTAL PROTEIN 6.8 GM/DL (6.4-8.2)
[2021-06-28 13:58] LABS: BASOPHILS # (AUTO) 0.1 10^3/uL (0.0-0.1); BASOPHILS % (AUTO) 1 % (0-10); EOSINOPHILS # (AUTO) 0.1 10^3/uL (0.0-0.3); EOSINOPHILS % (AUTO) 3 % (0-10); HEMATOCRIT 30 % (35-52); HEMOGLOBIN 9.8 g/dL (11.5-16.0); LYMPHOCYTES # (AUTO) 1.2 10^3/uL (1.0-4.0); LYMPHOCYTES % (AUTO) 28 % (12-44); MEAN CORPUSCULAR HEMOGLOBIN 36 pg (25-34); MEAN CORPUSCULAR HGB CONC 33 g/dL (32-36); MEAN CORPUSCULAR VOLUME 110 fL (80-99); MEAN PLATELET VOLUME 9.8 fL (9.0-12.2); MONOCYTES # (AUTO) 0.7 10^3/uL (0.0-1.0); MONOCYTES % (AUTO) 16 % (0-12); NEUTROPHILS # (AUTO) 2.2 10^3/uL (1.8-7.8); NEUTROPHILS % (AUTO) 51 % (42-75); PLATELET COUNT 277 10^3/uL (130-400); WHITE BLOOD COUNT 4.2 10^3/uL (4.3-11.0)
[2021-06-28 14:21] LABS: ALBUMIN 3.9 GM/DL (3.2-4.5); BILIRUBIN,TOTAL 0.4 MG/DL (0.1-1.0); CALCIUM 9.2 MG/DL (8.5-10.1); CREATININE SERUM 0.8 MG/DL (0.60-1.30); POTASSIUM 3.7 MMOL/L (3.6-5.0); TOTAL PROTEIN 6.7 GM/DL (6.4-8.2)
[2021-07-05 13:45] LABS: BASOPHILS % (AUTO) 1 % (0-10); EOSINOPHILS # (AUTO) 0.2 10^3/uL (0.0-0.3); EOSINOPHILS % (AUTO) 2 % (0-10); HEMATOCRIT 32 % (35-52); HEMOGLOBIN 10.4 g/dL (11.5-16.0); LYMPHOCYTES # (AUTO) 1.7 10^3/uL (1.0-4.0); LYMPHOCYTES % (AUTO) 21 % (12-44); MEAN CORPUSCULAR HEMOGLOBIN 35 pg (25-34); MEAN CORPUSCULAR HGB CONC 32 g/dL (32-36); MEAN CORPUSCULAR VOLUME 110 fL (80-99); MEAN PLATELET VOLUME 9.3 fL (9.0-12.2); MONOCYTES # (AUTO) 0.8 10^3/uL (0.0-1.0); MONOCYTES % (AUTO) 10 % (0-12); NEUTROPHILS # (AUTO) 5.4 10^3/uL (1.8-7.8); NEUTROPHILS % (AUTO) 66 % (42-75); PLATELET COUNT 270 10^3/uL (130-400); WHITE BLOOD COUNT 8.1 10^3/uL (4.3-11.0)
[2021-07-05 14:02] LABS: CALCIUM 8.3 MG/DL (8.5-10.1); CREATININE SERUM 1.05 MG/DL (0.60-1.30); POTASSIUM 4.3 MMOL/L (3.6-5.0)
[2021-07-12 12:00] LABS: BASOPHILS % (AUTO) 1 % (0-10); EOSINOPHILS # (AUTO) 0.1 10^3/uL (0.0-0.3); EOSINOPHILS % (AUTO) 2 % (0-10); HEMATOCRIT 36 % (35-52); HEMOGLOBIN 11.7 g/dL (11.5-16.0); LYMPHOCYTES # (AUTO) 0.8 10^3/uL (1.0-4.0); LYMPHOCYTES % (AUTO) 16 % (12-44); MEAN CORPUSCULAR HEMOGLOBIN 36 pg (25-34); MEAN CORPUSCULAR HGB CONC 33 g/dL (32-36); MEAN CORPUSCULAR VOLUME 109 fL (80-99); MEAN PLATELET VOLUME 9.7 fL (9.0-12.2); MONOCYTES # (AUTO) 0.5 10^3/uL (0.0-1.0); MONOCYTES % (AUTO) 9 % (0-12); NEUTROPHILS # (AUTO) 3.7 10^3/uL (1.8-7.8); NEUTROPHILS % (AUTO) 72 % (42-75); PLATELET COUNT 267 10^3/uL (130-400); WHITE BLOOD COUNT 5.2 10^3/uL (4.3-11.0)
[2021-07-12 12:38] LABS: CALCIUM 10.4 MG/DL (8.5-10.1); CREATININE SERUM 1.08 MG/DL (0.60-1.30); POTASSIUM 4.1 MMOL/L (3.6-5.0)
[2021-07-26 11:21] LABS: BASOPHILS % (AUTO) 1 % (0-10); EOSINOPHILS # (AUTO) 0.1 10^3/uL (0.0-0.3); EOSINOPHILS % (AUTO) 3 % (0-10); HEMATOCRIT 32 % (35-52); HEMOGLOBIN 10.1 g/dL (11.5-16.0); LYMPHOCYTES # (AUTO) 0.9 10^3/uL (1.0-4.0); LYMPHOCYTES % (AUTO) 29 % (12-44); MEAN CORPUSCULAR HEMOGLOBIN 34 pg (25-34); MEAN CORPUSCULAR HGB CONC 32 g/dL (32-36); MEAN CORPUSCULAR VOLUME 107 fL (80-99); MEAN PLATELET VOLUME 9.8 fL (9.0-12.2); MONOCYTES # (AUTO) 0.3 10^3/uL (0.0-1.0); MONOCYTES % (AUTO) 10 % (0-12); NEUTROPHILS # (AUTO) 1.8 10^3/uL (1.8-7.8); NEUTROPHILS % (AUTO) 57 % (42-75); PLATELET COUNT 223 10^3/uL (130-400); WHITE BLOOD COUNT 3.1 10^3/uL (4.3-11.0)
[2021-07-26 11:39] LABS: BILIRUBIN,TOTAL 0.4 MG/DL (0.1-1.0); CALCIUM 9.5 MG/DL (8.5-10.1); CREATININE SERUM 1.04 MG/DL (0.60-1.30); POTASSIUM 3.6 MMOL/L (3.6-5.0); TOTAL PROTEIN 7.2 GM/DL (6.4-8.2)
[~2021-08-02 14:53] MED LIST changes: -BARIUM SUSPENSION 2.1% (VANILLA SILQ) 450 ML PO ONE; -CATHETER FLUSH 10 ML SYR IV PRN; +DIAZEPAM 5 MG (VALIUM) TABLET PO ONE; +FULVESTRANT 250 MG/5 ML SYR (CANCER CENTER) IM SCH; -HOLD METFORMIN - RECEIVED CONTRAST 20 ML VIAL IV SCH; -IOHEXOL 350 MG/ML 100 ML (OMNIPAQUE 350) VIAL IV ONE; -NS 100 ML (IVPB) BAG IV ONE; +ZOLEDRONIC ACID (CANCER CTR) 3 MG in NS (IVPB) CANCER CENTER 100 ML IV SCH; +morphine INJ 4 MG/ML 1 ML (CANCER CTR) ONE
[2021-08-02 15:24] LABS: BASOPHILS % (AUTO) 1 % (0-10); EOSINOPHILS # (AUTO) 0.1 10^3/uL (0.0-0.3); EOSINOPHILS % (AUTO) 3 % (0-10); HEMATOCRIT 29 % (35-52); HEMOGLOBIN 9.3 g/dL (11.5-16.0); LYMPHOCYTES # (AUTO) 0.8 X 10^3 (1.0-4.0); LYMPHOCYTES % (AUTO) 28 % (12-44); MEAN CORPUSCULAR HEMOGLOBIN 35 pg (25-34); MEAN CORPUSCULAR HGB CONC 33 g/dL (32-36); MEAN CORPUSCULAR VOLUME 108 fL (80-99); MEAN PLATELET VOLUME 9.9 fL (9.0-12.2); MONOCYTES # (AUTO) 0.4 X 10^3 (0.0-1.0); MONOCYTES % (AUTO) 13 % (0-12); NEUTROPHILS # (AUTO) 1.6 X 10^3 (1.8-7.8); NEUTROPHILS % (AUTO) 55 % (42-75); PLATELET COUNT 190 10^3/uL (130-400); WHITE BLOOD COUNT 2.9 10^3/uL (4.3-11.0)
[2021-08-02 15:46] LABS: ALBUMIN 3.8 GM/DL (3.2-4.5); BILIRUBIN,TOTAL 0.3 MG/DL (0.1-1.0); CREATININE SERUM 0.86 MG/DL (0.60-1.30); POTASSIUM 3.8 MMOL/L (3.6-5.0); TOTAL PROTEIN 6.6 GM/DL (6.4-8.2)
== END 2021-08-06 | disposition home or self-care (01) ==
LOC: ONC 14:53
PROVIDERS: ATTEND Internal Medicine Hematology & Oncology
DX: C50.412 Malignant neoplasm of upper-outer quadrant of left female breast (principal); C79.51 Secondary malignant neoplasm of bone; C78.6 Secondary malignant neoplasm of retroperitoneum and peritoneum; G89.3 Neoplasm related pain (acute) (chronic); D64.9 Anemia, unspecified; D69.6 Thrombocytopenia, unspecified; E78.00 Pure hypercholesterolemia, unspecified; I10 Essential (primary) hypertension; Z87.891 Personal history of nicotine dependence; Z79.899 Other long term (current) drug therapy
CPT/HCPCS: 85025; G0463; 36591; 80048; 80053; 86300; 96365; 96402; 99213

== ENCOUNTER → 2021-08-10 | Outpatient (CLI) | payer MEDICARE, OTHER ==
[~2021-08-10] MED LIST changes: -DIAZEPAM 5 MG (VALIUM) TABLET PO ONE; -FULVESTRANT 250 MG/5 ML SYR (CANCER CENTER) IM SCH; -ZOLEDRONIC ACID (CANCER CTR) 3 MG in NS (IVPB) CANCER CENTER 100 ML IV SCH; -morphine INJ 4 MG/ML 1 ML (CANCER CTR) ONE
[2021-08-10 11:27] LABS: BILIRUBIN,URINE NEGATIVE (NEGATIVE); CLARITY,URINE CLEAR; COLOR,URINE YELLOW; GLUCOSE, URINE (UA) NEGATIVE (NEGATIVE); KETONES,URINE NEGATIVE (NEGATIVE); LEUKOCYTE ESTERASE ,URINE TRACE (NEGATIVE); NITRITE,URINE NEGATIVE (NEGATIVE); PROTEIN,URINE NEGATIVE (NEGATIVE)
[2021-08-10 11:30] LABS: BASOPHILS % (AUTO) 0 % (0-10); EOSINOPHILS # (AUTO) 0.1 10^3/uL (0.0-0.3); EOSINOPHILS % (AUTO) 1 % (0-10); HEMATOCRIT 30 % (35-52); LYMPHOCYTES # (AUTO) 0.8 10^3/uL (1.0-4.0); LYMPHOCYTES % (AUTO) 10 % (12-44); MEAN CORPUSCULAR HEMOGLOBIN 35 pg (25-34); MEAN CORPUSCULAR HGB CONC 33 g/dL (32-36); MEAN CORPUSCULAR VOLUME 104 fL (80-99); MONOCYTES # (AUTO) 0.6 10^3/uL (0.0-1.0); MONOCYTES % (AUTO) 7 % (0-12); NEUTROPHILS # (AUTO) 6.4 10^3/uL (1.8-7.8); NEUTROPHILS % (AUTO) 81 % (42-75); PLATELET COUNT 317 10^3/uL (130-400); WHITE BLOOD COUNT 7.9 10^3/uL (4.3-11.0)
[2021-08-10 11:47] LABS: BACTERIA,URINE NEGATIVE /HPF; WBC,URINE RARE /HPF
== END ==
LOC: LABNPT 11:21
PROVIDERS: ATTEND Internal Medicine Hematology & Oncology
DX: C50.411 Malignant neoplasm of upper-outer quadrant of right female breast (principal); D64.9 Anemia, unspecified; R39.15 Urgency of urination
CPT/HCPCS: 81000; 85025

== ENCOUNTER → 2021-08-17 | Outpatient (CLI) | payer MEDICARE, OTHER ==
[2021-08-17 10:32] LABS: BASOPHILS % (AUTO) 0 % (0-10); EOSINOPHILS % (AUTO) 0 % (0-10); HEMATOCRIT 32 % (35-52); HEMOGLOBIN 10.6 g/dL (11.5-16.0); LYMPHOCYTES % (AUTO) 15 % (12-44); MEAN CORPUSCULAR HEMOGLOBIN 35 pg (25-34); MEAN CORPUSCULAR HGB CONC 33 g/dL (32-36); MEAN CORPUSCULAR VOLUME 107 fL (80-99); MEAN PLATELET VOLUME 10.2 fL (9.0-12.2); MONOCYTES # (AUTO) 0.8 10^3/uL (0.0-1.0); MONOCYTES % (AUTO) 12 % (0-12); NEUTROPHILS # (AUTO) 4.9 10^3/uL (1.8-7.8); NEUTROPHILS % (AUTO) 73 % (42-75); PLATELET COUNT 264 10^3/uL (130-400); WHITE BLOOD COUNT 6.7 10^3/uL (4.3-11.0)
== END ==
LOC: LABNPT 10:26
PROVIDERS: ATTEND Internal Medicine
DX: C41.9 Malignant neoplasm of bone and articular cartilage, unspecified (principal); D64.9 Anemia, unspecified
CPT/HCPCS: 85025

== ENCOUNTER → 2021-08-24 | Outpatient (CLI) | payer MEDICARE, OTHER ==
[2021-08-24 09:45] LABS: BASOPHILS % (AUTO) 0 % (0-10); EOSINOPHILS # (AUTO) 0.1 10^3/uL (0.0-0.3); EOSINOPHILS % (AUTO) 2 % (0-10); HEMATOCRIT 31 % (35-52); HEMOGLOBIN 10.2 g/dL (11.5-16.0); LYMPHOCYTES # (AUTO) 1.5 10^3/uL (1.0-4.0); LYMPHOCYTES % (AUTO) 30 % (12-44); MEAN CORPUSCULAR HEMOGLOBIN 35 pg (25-34); MEAN CORPUSCULAR HGB CONC 33 g/dL (32-36); MEAN CORPUSCULAR VOLUME 108 fL (80-99); MEAN PLATELET VOLUME 10.1 fL (9.0-12.2); MONOCYTES # (AUTO) 0.5 10^3/uL (0.0-1.0); MONOCYTES % (AUTO) 10 % (0-12); NEUTROPHILS # (AUTO) 2.9 10^3/uL (1.8-7.8); NEUTROPHILS % (AUTO) 57 % (42-75); PLATELET COUNT 281 10^3/uL (130-400)
== END ==
LOC: LABNPT 09:34
PROVIDERS: ATTEND Internal Medicine
DX: D64.9 Anemia, unspecified (principal); C50.412 Malignant neoplasm of upper-outer quadrant of left female breast; C79.51 Secondary malignant neoplasm of bone; C78.6 Secondary malignant neoplasm of retroperitoneum and peritoneum
CPT/HCPCS: 85025